=== PATIENT | female | born 2000 | race Caucasian/White ===

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

== ENCOUNTER → 2022-01-20 | Outpatient (CLI) | payer MEDICAID, SELFPAY | END | disposition home or self-care (01) | LOC: LABSPEC 10:07 | PROVIDERS: Visit Provider Obstetrics & Gynecology | DX: Z36.85 Encounter for antenatal screening for Streptococcus B (principal) | CPT/HCPCS: 87081 ==

== ENCOUNTER 2022-02-01 10:55 | Outpatient (CLI) | payer MEDICAID, SELFPAY ==
[2022-02-01 11:05] VITALS: BP 122/60; PULSE 88; TEMP 36.1
--- NOTE | 2022-02-01 15:33 | OB.TRI.NOTE ---
HPI - General HPI Narrative ELDER ANN, is a 21 F who presents for NST PFSH PFS Home Medications [id number] 1 mg tablet tab PO 02/01/22 [History Last Taken Unknown] Allergy/AdvReac Type Severity Reaction Status Date / Time No Known Allergies Allergy Verified 02/01/22 11:34 NST FHR Rate Baby A Baseline: 130 Variability:: Moderate Accelerations:: 15 x 15 Decelerations:: None NST Reactive:: Yes Uterine Activity:: Quiet Assessment & Plan (1) : PLAN: Patient arrives for NST. Reactive. Reassuring. Okay to discharge home and follow-up at scheduled appointments
== END 2022-02-01 11:40 | disposition home or self-care (01) ==
LOC: WPOUT 11:00 → WP 11:00
PROVIDERS: Referring Provider Obstetrics & Gynecology; Visit Provider Obstetrics & Gynecology
DX: Z34.90 Encounter for supervision of normal pregnancy, unspecified, unspecified trimester (principal); Z3A.00 Weeks of gestation of pregnancy not specified
CPT/HCPCS: 59025

== ENCOUNTER 2022-02-07 06:55 | Inpatient (IN) | payer MEDICAID, SELFPAY ==
[2022-02-07] VITALS (16 sets, daily range): BP systolic 104–130; BP diastolic 57–74; PULSE 78–111; TEMP 36.1–36.6; O2SAT 94–99; BMI 30.4
--- NOTE | 2022-02-07 07:14 | PCM.HP.BLA ---
History and Physical Date of Admission: 02/07/22 Chief complaint: Induction of labor at term History present illness: 21-year-old G1, P0 at 39 weeks and 1 day with SALMA 02/13/2022 arrives for induction of labor at term. Denies headache, visual changes, chest pain, shortness of breath, nausea vomit, right upper quadrant pain. Patient states good movement. Obstetrical history: G1: Current Past medical history: None Medications: None Past surgical history: None Allergies: No known drug allergies Family history: Denies history DVT or PE Social history: Denies smoking, alcohol use, drug use Review of systems: Besides above pertinent positives a full review of systems was performed and found to be negative Physical exam: Vitals: Pending General: Normal-appearing no acute distress none HEENT: Normocephalic atraumatic no cervical of adenopathy Cardiac/respiratory: No use of accessory muscles, nonlabored breathing Abdomen: Soft, nontender, gravid Extremities: No peripheral edema normal peripheral pulses Psych: Normal affect normal demeanor nonpressured speech Labs: Pending Assessment plan: 21-year-old G1, P0 at 39 weeks and 1 day for induction of labor at term Admit labor and delivery CEFM Cytotec induction GBS negative Routine orders Anesthesia to see
[2022-02-07 08:05] LABS: Absolute Lymphocyte Count 1.92 X10^3/uL (0.83-4.51); Absolute Neutrophil Count 5.6 X10^3/uL (2.0-7.7); Basophil# 0.03 X10^3/uL; Basophil% 0.3 % (0-1); Eosinophils% 2.3 % (0-5); Hematocrit 34.4 % (37-47); Hemoglobin 10.9 g/dL (12.0-15.0); Lymphocyte # 1.92 X10^3/ul (0.83-4.51); Mean Corp Hgb Conc 31.7 g/dL (32-36); Mean Corpuscular Hgb 27.4 pg (27.0-32.0); Mean Corpuscular Volume 86.4 fL (81-99); Mean Platelet Vol. 11.4 fl (6.2-12.0); Monocyte# 0.89 X10^3/uL; Monocyte% 10.2 % (0-10); NRBC Flagged by Analyzer 0 % (0-5); Neutrophil % 64.4 % (47-70); Platelet Count 234 K/mm3 (150-450); RBC Distribution Width CV 13.2 % (11.6-14.6); RBC Distribution Width SD 41.3 fl (35.1-43.9); Red Blood Count 3.98 M/mm3 (4.2-5.4); White Blood Count 8.7 K/mm3 (4.4-11.0)
[2022-02-07] MEDS: miSOPROStol 25 MCG TABLET VAGINAL ×3 (08:36→16:25)
[2022-02-07] MEDS: Lactated Ringers 1,000 ML 50 ML IV (20:21)
[2022-02-07] MEDS: LACTATED RINGERS 500 ML 999 ML IV ×3 (20:21→23:41)
--- NOTE | 2022-02-07 21:44 | PCM.PN.OB ---
Subjective Subjective Pt starting to feel contractions. Objective Data Objective Data Vital Signs: Vital Signs Temp Pulse BP Pulse Ox 97.7 F L 90 130/66 H 94 02/07/22 19:17 02/07/22 21:36 02/07/22 21:36 02/07/22 21:21 Weight: 83.007 kg Body Mass Index (BMI) 30.4 Intake & Output: Intake and Output for Last 24 Hours 02/05/22 02/06/22 02/07/22 23:59 23:59 23:59 Intake Total 500 / 500 Output Total 100 / 100 Balance 400 / 400 Lab / Micro Data Attestation: I reviewed the patient's lab results. Result Diagrams: 02/07/22 07:50 Labs: Laboratory Results - last 24 hr 02/07/22 07:50: WBC 8.7, RBC 3.98 L, Hgb 10.9 L, Hct 34.4 L, MCV 86.4, MCH 27.4, MCHC 31.7 L, RDW Std Deviation 41.3, RDW Coeff of Rebecca 13.2, Plt Count 234, MPV 11.4, Immature Gran % (Auto) 0.800, Neut % (Auto) 64.4, Lymph % (Auto) 22.0, Citrus % (Auto) 10.2 H, Eos % (Auto) 2.3, Baso % (Auto) 0.3, Absolute Neuts (auto) 5.6, Absolute Lymphs (auto) 1.92, Nucleated RBC % 0 02/07/22 07:50: Blood Type A POSITIVE, Antibody Screen NEGATIVE Physical Exam Const alert, oriented x3 and no apparent distress Resp normal respiratory effort and no retractions Cardio regular rate GI soft to palpation, non-tender and non-distended Inspection: gravid Narrative: /-3, AROM clear fluid. FSE placed and then removed as it was malfunctioning. Extremity normal to inspection Assessment & Plan (1) Elective induction of labor planned: PLAN: Responded to heart rate deceleration to marva of 40s for three minutes. Recovered with positional changes, IVF bolus. FHR 125s, mod rebecca/no accel/+broken variable decel. FSE placed with cervical exam and AROM. FSE malfunctioning, able to trace externally. Therefore FSE was removed and external monitors replaced. Deceleration likely secondary to uterine tachysystole. Lyerly now q1. Pt did have snack prior to deceleration, instruction no further. Will monitor for 1-2 hours and will start pitocin at that time based on FHR monitoring. Discussed deceleration and plan of care with patient and family at bedside. All questions answered.
[2022-02-07] MEDS: Oxytocin 30 units/NS 500 ml 30 UNITS/500 ML IV.SOLN IV (23:27)
[2022-02-08] VITALS (65 sets, daily range): BP systolic 84–151; BP diastolic 42–79; PULSE 71–187; RESP 16–18; TEMP 36.1–36.8; O2SAT 92–100
[2022-02-08] MEDS: fentaNYL-bupivacaine (epidural) 100 ML BAG EPIDURAL ×4 (00:25→13:45)
[2022-02-08] MEDS: LACTATED RINGERS 500 ML 999 ML IV ×3 (01:50→10:31)
[2022-02-08] MEDS: Terbutaline 1 MG/ML Vial 0.25 MG SC (04:01)
[2022-02-08] MEDS: Lactated Ringers 1,000 ML 200 ML IV ×2 (04:03→09:19)
--- NOTE | 2022-02-08 08:08 | PCM.PN.OB ---
Subjective Subjective Patient comfortable in bed, sleeping. Objective Data Objective Data Vital Signs: Vital Signs Temp Pulse BP Pulse Ox 97.7 F L 111 H 98/50 L 98 02/08/22 01:50 02/08/22 07:27 02/08/22 07:27 02/08/22 07:27 Weight: 83.007 kg Body Mass Index (BMI) 30.4 Intake & Output: Intake and Output for Last 24 Hours 02/06/22 02/07/22 02/08/22 23:59 23:59 23:59 Intake Total 1057.5 / 1057.5 2448.23 / 2448.23 Output Total 700 / 700 1100 / 1100 Balance 357.5 / 357.5 1348.23 / 1348.23 Lab / Micro Data Result Diagrams: 02/07/22 07:50 Labs: Laboratory Results - last 24 hr 02/07/22 07:50: Blood Type A POSITIVE, Antibody Screen NEGATIVE Physical Exam Const alert, oriented x3 and no apparent distress Resp normal respiratory effort Cardio regular rate GI soft to palpation and non-tender Inspection: gravid Narrative: 5/70/-1 Extremity no pedal edema NST FHR Rate Baby A Baseline: 145 Variability:: Moderate Accelerations:: 15 x 15 Decelerations:: Variable (occasional) Uterine Activity:: q1-5 min Assessment & Plan (1) Elective induction of labor planned: PLAN: 39/2 weeks continued elective induction at term. Patient was started on Pitocin late last night. Developed uterine tachysystole with coupling of contractions. Pitocin was stopped. Around 430 this morning patient was given terbutaline in an effort to relax uterus and to be able to restart induction of labor. Patient continued to contract on her own. Pitocin still off at this time.Patient has had made cervical change. Now 5 cm. We will plan to monitor contraction pattern air over the next 30 to 60 minutes. If able we will then start Pitocin at 1 milliunit and augment by 1mU. Discussed plan of care with patient and also with family at bedside. Discussed possibilities of labor progress. If patient continues to contract and make cervical change without Pitocin, will proceed. Discussed possibilities of section if fetus does not tolerate contractions or labor, if cervix stops making change, if no cervical change and unable to utilize Pitocin to assist in making cervical change. All questions answered.
[2022-02-08] MEDS: Oxytocin 30 units/NS 500 ml 30 UNITS/500 ML IV.SOLN 334 UNITS IV (15:28)
--- NOTE | 2022-02-08 15:45 | EX.PCM.OBRPT ---
Vaginal Delivery Operative Information Date of Procedure: 02/08/22 Pre-Operative Diagnosis: Narvaez intrauterine Post-Operative Diagnosis: Narvaez intrauterine Surgery / Procedure Performed: Spontaneous Vaginal Delivery Type of Anesthesia: Epidural Estimated Blood Loss: 350cc Findings Description of Procedure: Spontaneous vaginal delivery of viable infant female. No nuchal cord. Baby to mom. Cord clamped and cut. Spontaneous delivery of placenta. First-degree laceration repaired in usual fashion, hemostatic. A Gender: Female (1 minute): 9 (5 minute): 10
[2022-02-08] MEDS: Ibuprofen 600 MG Tablet PO (17:26)
[2022-02-08] MEDS: Acetaminophen 500 MG Tablet 1000 MG PO (23:17)
[2022-02-09] VITALS (10 sets, daily range): BP systolic 99–120; BP diastolic 51–65; PULSE 88–99; RESP 14–20; TEMP 36.1–36.6
--- NOTE | 2022-02-09 07:44 | PCM.PN.OB ---
Subjective Subjective No overnight complaints Objective Data Objective Data Vital Signs: Vital Signs Temp Pulse Resp BP Pulse Ox O2 Del Method 97.2 F L 99 14 113/60 99 Room Air 02/09/22 03:19 02/09/22 03:19 02/09/22 03:19 02/09/22 03:19 02/08/22 20:08 02/09/22 03:19 Oxygen Delivery Method Room Air Weight: 183 lb Body Mass Index (BMI) 30.4 Intake & Output: Intake and Output for Last 24 Hours 02/07/22 02/08/22 02/09/22 23:59 23:59 23:59 Intake Total 1057.5 / 1057.5 5700.88 / 5700.88 Output Total 700 / 700 4300 / 4300 Balance 357.5 / 357.5 1400.88 / 1400.88 Lab / Micro Data Result Diagrams: 02/07/22 07:50 Physical Exam Const alert, oriented x3, no apparent distress, average body habitus, healthy appearing and well nourished HEENT normocephalic and moist oral mucous membranes Eyes PERRL Resp normal respiratory effort, no retractions and no use of accessory muscles GI GI Narrative: Soft, nontender uterus firm and below umbilicus Extremity normal to inspection, full ROM and no clubbing, cyanosis or edema Neuro moves all extremities and no focal motor deficits Psych mental status grossly normal, affect normal and speech normal Assessment & Plan (1) Vaginal delivery: PLAN: day 1. Breast-feeding. Pain well controlled. Likely home tomorrow
[2022-02-09] MEDS: Ibuprofen 600 MG Tablet PO ×2 (07:47→15:00)
[2022-02-09] MEDS: Senna/Docusate Sodium 1 Tablet PO (07:48)
[2022-02-09] MEDS: Acetaminophen 500 MG Tablet 1000 MG PO ×2 (10:40→20:11)
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
[2022-02-10 01:46] VITALS: BP 115/63; PULSE 82; RESP 17; TEMP 36.4
[2022-02-10] MEDS: Ibuprofen 600 MG Tablet PO (07:29)
--- NOTE | 2022-02-10 07:30 | PCM.DC.BLA ---
Discharge Summary Date of Admission: 02/07/22 Date of Discharge: 02/10/22 Summary: Patient arrived on 02/07 for induction of labor at term. Subsequently delivered in 02/08/2022. Routine recovery. Discharge home on 02/10/2022 Meaningful Use Info Meaningful Use Diagnoses (Choose all that apply): None applicable Discharge Plan Admission Admit Date/Time: 02/07/22 06:55 Primary Reason for Your Visit: Induction of labor Attending Provider: Shalini Rangel Instructions Additional Instructions / Restrictions: Regular diet. Routine activity. Weightbearing as tolerated. No records for 4 to 6 weeks. Okay to shower. Call if fevers, chills, chest pain, shortness of breath. Follow-up 4 to 6 weeks Discharge Orders/Prescriptions Prescriptions: No Action 1 mg Tablet PO quetiapine 100 mg tablet 50 mg Label Comments: TAKE 1 TABLET BY MOUTH EVERY DAY AT BEDTIME Disposition Disposition (needs filled in before D/C Order can be placed): Home, Self Care
--- NOTE | 2022-02-10 07:31 | PCM.PN.OB ---
Subjective Subjective No overnight complaints Objective Data Objective Data Vital Signs: Vital Signs Temp Pulse Resp BP Pulse Ox O2 Del Method 97.5 F L 82 17 115/63 99 Room Air 02/10/22 01:46 02/10/22 01:46 02/10/22 01:46 02/10/22 01:46 02/08/22 20:08 02/10/22 01:46 Oxygen Delivery Method Room Air Weight: 183 lb Body Mass Index (BMI) 30.4 Intake & Output: Intake and Output for Last 24 Hours 02/08/22 02/09/22 02/10/22 23:59 23:59 23:59 Intake Total 5700.88 / 5700.88 Output Total 4300 / 4300 Balance 1400.88 / 1400.88 Lab / Micro Data Result Diagrams: 02/07/22 07:50 Physical Exam Const alert, oriented x3, no apparent distress, average body habitus, healthy appearing and well nourished HEENT normocephalic and moist oral mucous membranes Eyes PERRL Neck full ROM Resp normal respiratory effort, no retractions and no use of accessory muscles Extremity normal to inspection, full ROM and no clubbing, cyanosis or edema Neuro moves all extremities and no focal motor deficits Psych mental status grossly normal, affect normal, speech normal and activity/motor behavior normal Assessment & Plan (1) Vaginal delivery: PLAN: day 2. Breast-feeding. Okay to discharge home today
[2022-02-10 07:57] VITALS: BP 109/62; PULSE 80
[2022-02-10 08:00] VITALS: BP 109/62; PULSE 75; RESP 14; TEMP 36.1; O2SAT 99
--- NOTE | 2022-02-10 10:48 | CASEMGMT ---
Social Work Labor and Delivery Unit 02/10/2022 Intervention occurring between [id number] Summary: As per verbal discussion with the mother of baby (MOB) and the father of baby (FOB) this selling underwriter worked on securing mental health intakes at the counseling center for both. MOB has follow-up on 02/13/2022 at noon with an arrival at 11:30 AM, with therapist Mitali Melendrez. FOB has an appointment on 03/21/2022 at 1 PM with an arrival at 12:30 PM, with therapist Julisa Alarcon. Met with the MOB in room. Also in room were MOB's mother Aby and MOB's grandmother Noemi. Aby and Noemi left to get car seat and to allow this selling underwriter private time with the MOB. Reviewed mental health follow-up for both the MOB and the FOB, as the FOB was at work. MOB took a picture of the FOB's appointment and sent to the FOB straightaway. MOB voiced intent to follow-up, and expressed happiness at having such a close appointment. This selling underwriter explored MOB's intention about maintaining on the Seroquel. MOB reports concerns about sleepiness and reports preference at this point to be on Prozac. MOB reports she does have a refill of the Prozac as prescribed by her provider in [place]. This selling underwriter explored whether there was any type of indication of briseyda when on the Prozac, and MOB denied such. This selling underwriter explored whether MOB has any history of psychosis, and MOB reported belief that has been delusional in the past, though denies any concerns at this time. This selling underwriter has not observed any evidence of delusional thought process or psychosis during this hospital stay. MOB has been logical, with intact thought process both yesterday and today. MOB does express understanding of risk for mood complications including psychosis, and reports would talk with her mother should concerns start to arise. This selling underwriter provided packet on mood and anxiety disorders as well as a packet on [facility] resources. Handouts on shaken baby prevention and safe sleeping. MOB voiced it is okay to talk freely with Gerald should they return. This selling underwriter left room to get additional resources for the MOB. This selling underwriter ran into Gerald who were coming back to the room with a car seat. Aby shared with this selling underwriter plan to stay in [place] for a couple of weeks, and can extend stay longer should this be needed. Aby confirms that VINOD has a refill of 20 mg of Prozac at a pharmacy in [place], though can have the prescription transferred to a pharmacy in [place]. This selling underwriter explored whether the psychiatric provider can do telehealth and continue to follow MOB until MOB can see a local provider at the counseling center. Aby reports this would be a possibility and can help MOB call to make a telehealth appointment. This selling underwriter suggested that family talk with the counseling center on 02/13/2022 as to how long it will be before psych services can start, and then arrange telehealth based off of that timeframe. Aby voiced understanding and agreement with this plan to assist the MOB. Note during conversation with Aby, Aby indicated the MOB does have a history of some PTSD. Also as a minor did have some residential treatment for about 6 months in the last psychiatric hospitalization for the MOB was around [address] [facility]. It was after that hospitalization in 2019 that VINOD was reportedly prescribed 300 mg of Seroquel. Aby reports the MOB has experienced briseyda in the past, and denies (consistent with MOB's reports) that VINOD ever experienced briseyda from the Prozac. Aby shared a personal history of psychosis after 2 of Aby's deliveries, with one of the psychosis episodes surfacing until around 6 to 7 months . Emotional support offered to Aby. This selling underwriter back to room, and reviewed the option of telehealth until getting into a psychiatric provider in [place]. MOB in agreement. This selling underwriter provided some additional baby clothing, and a brochure on [facility]'s behavioral health program. Educated to the IOP program and availability of group, individual, and psychiatry while involved with the program. VINOD reports she has been in the IOP program before so understands how it works. No other questions identified by MOB or family. Help me grow referral submitted through the [facility] assisted care web-based referral system. Assessment: Observed MOB attentive to the baby this morning, appearing to hogan. VINOD appears receptive to getting supportive services in place, showing good insight into need for support. VINOD's family presents is supportive, and aware of the importance of support and emotional health in the timeframe. VINOD has identified her family is a good and healthy support. Plan: MOB and infant are discharging home with support from MOB's grandparents and MOB's mother. Father of baby also involved and will be around to help as able. MOB's mother has stated plan to stay in [place] for couple more weeks to assist with transition home. MOB has mental health follow-up arranged for 02/13/2022, and MOB's mother to assist with arranging psychiatric telehealth for the interim between the intake assessment and referral to psychiatric services at the counseling center. [facility] resource list, Mood and Anxiety Disorders, and Information on [facility] Behavioral Health Program provided. Help me grow referral has been made into follow-up with the family as well. VINOD has stated that if she starts feeling any emotional distress would first talk with her mother. -CHERI Weinberg, PRIVATE CLIENT ADVISOR. *This note was generated with [employer] dictation software. It may contain incorrect words, spelling, and punctuation that were not noted in review of the chart prior to signing*
== END 2022-02-10 11:15 | disposition home or self-care (01) | DRG 560 ==
PROVIDERS: Admitting Provider Student in an Organized Health Care Education/Training Program; Visit Provider Student in an Organized Health Care Education/Training Program
DX: O70.0 First degree perineal laceration during delivery (principal); Z37.0 Single live birth; O76 Abnormality in fetal heart rate and rhythm complicating labor and delivery; Z3A.39 39 weeks gestation of pregnancy
CPT/HCPCS: 59025; 59050; 85025; 86850; 86900; 86901; 99218; J7120; G0378

== ENCOUNTER → 2022-05-05 | Outpatient (CLI) | payer MEDICAID, SELFPAY ==
[2022-05-05 18:57] LABS: Rheumatoid Factor < 10.0 IU/mL (<15)
[2022-05-12 14:29] LABS: ANTINUCLEAR ANTIBODIES DIRECT Negative (Negative)
== END | disposition home or self-care (01) ==
LOC: MFPLAB 16:49
PROVIDERS: PCP Family Medicine; Referring Provider Family Medicine; Visit Provider Family Medicine
DX: Z82.61 Family history of arthritis (principal)
CPT/HCPCS: 36415; 86038; 86431

== ENCOUNTER → 2023-02-15 | Outpatient (CLI) | payer MEDICAID, SELFPAY ==
[2023-02-15 17:41] LABS: hCG Titer Quant., Serum < 1 mIU/mL (1-3)
== END | disposition home or self-care (01) ==
LOC: WOBLAB 16:09
PROVIDERS: PCP Family Medicine; Visit Provider Obstetrics & Gynecology
DX: N91.2 Amenorrhea, unspecified (principal)
CPT/HCPCS: 36415; 84702

== ENCOUNTER 2023-06-18 10:29 | Emergency (ER) | payer MEDICAID, SELFPAY ==
[2023-06-18 10:30] VITALS: BP 118/76; PULSE 92; RESP 14; TEMP 36.8; O2SAT 98; BMI 25.4
--- NOTE | 2023-06-18 10:38 | ED.VIS.GI ---
HPI HPI - GI History of Present Illness Chief Complaint: Abd Pain Detail of Chief Complaint: Nausea, vomiting and diarrhea. Informant: patient Abdominal Pain/Flank Pain Onset: Today and Yesterday Context: Gradual Onset Timing: Intermittent Quality: Cramping Current Severity: Gone Maximum Severity: Mild Worsened by: Nothing Relieved by: Nothing Nausea/Vomiting/Emesis GI Symptom: Positive for Nausea and Vomiting Onset: Today and Yesterday Severity: Mild Diarrhea/Melena/Hematochezia GI Symptom: Positive for Diarrhea Onset: Today Stool Quality: Positive for Loose Severity: Mild Associated Symptoms Associated Symptoms: Negative for Dysuria, Frequency, Hematuria or Urgency Narrative Narrative: Healthy 23-year-old female no significant past medical history or surgery. States that her grandmother had nausea vomiting and diarrhea and now she has had the last 1 to 2 days. Low-grade fever 100. Really noticed new abdominal pain some mild cramping. No dysuria. Prior similar symptoms: Yes Recent Illness/Hospitalization: No PFSH PFSH Medical History Anxiety COVID Depression Home Medications [id number] 1 mg tablet tab PO 02/01/22 [History Last Taken Unknown] quetiapine 100 mg tablet 50 mg Depression 02/07/22 [History Last Taken Unknown] ondansetron 4 mg disintegrating tablet 4 mg PO Q4H PRN Nausea #7 tabs 06/18/23 [Rx Last Taken Unknown] Allergy/AdvReac Type Severity Reaction Status Date / Time No Known Allergies Allergy Verified 06/18/23 10:30 Surgical History History of surgery Social History Smoking Status: Former smoker ROS ROS ED ROS Narrative Nausea, vomiting and diarrhea. Low-grade fever of 100. Review of Systems ROS Unobtainable: Denies due to encephalopathy Constitutional Constitutional ED: Reports fever(s); Denies chills ENT ENT ED: Denies ear pain, rhinorrhea or sore throat Cardiovascular Cardiovascular: Denies chest pain Respiratory/Chest Respiratory/Chest: Denies cough or dyspnea Gastrointestinal Gastrointestinal: Reports diarrhea, nausea and vomiting; Denies abdominal pain, constipation or melena Genitourinary Genitourinary ED: Denies dysuria or hematuria Musculoskeletal Musculoskeletal: Denies arthralgias Integumentary Denies abscess or Abrasions Neurologic Neurologic: Denies headache(s) Psychiatric Psychiatric: Denies anxiety or depression Endocrine Endocrinology: Denies polydipsia Hematologic/Lymphatic Hematologic/Lymphatic: Denies easy bleeding or easy bruising Allergic/Immunologic Allergic/Immunologic ED: Denies mouth swelling, tongue swelling or urticaria EXAM Physical Exam Narrative Exam Narrative: 23-year-old female no acute distress. Vital signs stable afebrile. HEENT exam unremarkable. Moist mucous membranes. Neck nontender. No lymphadenopathy. Lungs clear to auscultation bilaterally. Heart regular rhythm rate about 90 no murmur. Chest wall nontender. Abdomen soft nontender. Normal bowel sounds no peritoneal signs. No distention. No localizing right upper or right lower quadrant tenderness. Moving all 4 extremities. Nontender no edema. Back nontender. Neurologically she is awake and alert with no focal motor deficits. Very benign exam. Const Vital Signs: 06/18/23 10:30 Temperature 98.2 F Temperature Source Temporal Pulse Rate 92 Respiratory Rate 14 Blood Pressure 118/76 Blood Pressure Mean 90 Pulse Ox 98 Oxygen Delivery Method Room Air Positive well nourished and well developed; Negative for obese, cachectic, contractures or unkempt General Appearance ED: well developed and NAD; Negative for unkempt, cachectic, contractures or pallor Nutritional Appearance: Negative for cachectic or obese HEENT Reports moist mucous membranes normocephalic and atraumatic; Negative for trauma or tenderness Eyes PERRL and EOMs intact bilaterally General Eye ED: Negative for pale conjunctiva, scleral icterus or other Neck no lymphadenopathy, supple and no JVD General: Negative for tenderness Carotids: Negative for other Lymph Lymphatic: Negative for other Resp normal respiratory effort and clear to auscultation bilaterally Effort and Inspection: Negative for respiratory distress Auscultation: Negative for rales, rhonchi or wheezes Cardio regular rate, regular rhythm, S1 normal heart sound, S2 normal heart sound and no murmurs Rate: Negative for bradycardia or tachycardic Rhythm: Negative for abnormal rhythm GI non-tender, non-distended and no masses Inspection: Negative for abdominal distention Auscultation: normoactive bowel sounds Palpation: soft; Negative for tender, guarding or rigid Back/Spine no CVA tenderness General Back: Negative for CVA tenderness Cervical Spine: Negative for cervical spine tenderness Thoracic Spine / Upper Back: Negative for thoracic spinal tenderness Lumbar Spine / Lower Back: Negative for lumbar spinal tenderness Coccyx: Negative for other Extremity full ROM General Extremety ED: Negative for edema or tenderness General Extremity: Negative for edema Neuro CN's II-XII intact bilaterally and moves all extremities Sensorium / Orientation: alert, oriented to person, oriented to place and oriented to time; Negative for orientation impaired, confused, lethargic or stuporous Motor Exam: strength 5/5 throughout Psych mental status grossly normal and thought process normal Appearance: Negative for unkempt Attitude: No agitated Mood & Affect: Negative for depressed, anxious or tearful Skin no wounds General Skin Exam: Negative for jaundice or pallor Lesions: no lesions Rashes: no rashes Trauma: Negative for abrasion Nails: Negative for discolored MDM MDM MDM Narrative Medical decision making narrative: 23-year-old female clinically has a viral gastroenteritis. Abdomen is benign. I do not think she needs any labs. She was offered IV fluids and IV Zofran she deferred and said she is doing okay at this time. She will be treated with p.o. Zofran and ODT prescription. Fluids and rest. Off work today and tomorrow. History & Record Review Discussion w/independent historian: Patient Additional record(s) reviewed:: Prior inpatient record, Prior outpatient record and Prior ED visit Discharge Plan Triage Chief Complaint: Abd Pain ED Provider: Curtis Gustafson Dx/Rx/DC Orders Clinical Impression: Viral gastroenteritis Instructions: ED Gastroenteritis, Viral (Adult) Prescriptions: New ondansetron 4 mg tablet,disintegrating 4 mg PO Q4H PRN (Reason: Nausea) Qty: 7 0RF No Action 1 mg Tablet PO quetiapine 100 mg tablet 50 mg Patient Comments: TAKE 1 TABLET BY MOUTH EVERY DAY AT BEDTIME Primary Care Provider: Neema Calixto Referrals: David Ann MD [Med Staff - Active Staff] - 3-5 Days if not improving Activity Restrictions/Additional Instructions: Zofran as needed for nausea. Plenty of fluids and rest. Increase your diet slowly. Follow-up with your doctor if not improving. Disposition Disposition: Home, Self Care
== END 2023-06-18 10:54 | disposition home or self-care (01) ==
PROVIDERS: Emergency Provider Emergency Medicine; PCP Family Medicine; Visit Provider Emergency Medicine
DX: A08.4 Viral intestinal infection, unspecified (principal); F41.9 Anxiety disorder, unspecified; F32.A Depression, unspecified; Z79.899 Other long term (current) drug therapy; Z87.891 Personal history of nicotine dependence
CPT/HCPCS: 99282

== ENCOUNTER 2023-08-11 16:21 | Emergency (ER) | payer SELFPAY ==
[2023-08-11 16:22] VITALS: BP 116/60; PULSE 75; RESP 14; TEMP 36.3; O2SAT 100; BMI 26.9
--- OUTSIDE RECORDS SUMMARY | 2023-08-11 16:54 | XMS RPT_ITS | CCD ---
Author Name Unknown Address [address] [place] [address] Organization [facility] Care Team Providers Care Clinical Rehabilitation Liaison Name Role Phone Unavailable Primary Care Provider Unavailabl e Results Test Name Value Interpretation Reference Range Facil ity Encounters Encounter Date Encounter Type Care Provider Facility Start: 07-10-2021 End: 07-10-2021 Subsequent hospital visit by physician Anup CHRISTIANSON Procedures Date Procedure Procedure Detail Performing Clinician Start: 07-10-2021 Antibody screen Social History Date Type Detail Facility Tobacco smoking stat [facility] Tobacco smoking consumption unknown [facility] Start: 2002 Sex Assigned At Not on file [facility] Summary Purpose Family History No Family History Records FoundNo Family History Records Found Advance Directives No Advanced Directives Records FoundNo Advanced Directives Records Found Additional Source Comments Source Comments (unrecognize d section and content) In the event this informatio n is protected by the Federal Confidentiality of Alcohol and Drug Abuse Patient Records regulations: The Federal rules restrict any use of the information to criminally investigate or prosecute any alcohol or drug abuse patient.[facility] INFORMATION SOURCE (unrecogn ized section and content) DATE CREATED AUTHOR ROBERTA YEN 12/01/2021 [facility] FOR RECORDS PERTAINING TO PATIENTS WHO ARE OR HAVE BEEN ENROLLED IN A CHEMICAL DEPENDENCY/SUBSTANCEABUSE PROGRAM, SOME INFORMATION MAY BE OMITTED. This clinical summary was aggregated from multiple sources. Caution should be exercised in using it in the provision of clinical care. This summary normalizes information from multiple sources, and as a consequence, information in this document may materially change the coding, format and clinical context of patient data. In addition, data may be omitted in some cases. CLINICAL DECISIONS SHOULD BE BASED ON THE PRIMARY CLINICAL RECORDS. [facility] [employer] [facility]. provides no warranty or guarantee of the accuracy or completeness of information in this document.
--- NOTE | 2023-08-11 17:50 | EX.ED.VIS.EY ---
HPI History of Present Illness Chief Complaint: Eye Problem Informant: patient Narrative Narrative: The patient's child accidentally scratched her right eye. This happened about 4 5 hours ago. She states vision is a little bit blurry but mostly it tears and feels as though something is still in the eye. PFSH PFSH Medical History Anxiety COVID Depression Home Medications [id number]-vij-[id number]-FA 1 mg tablet tab PO 02/01/22 [History Last Taken Unknown] quetiapine 100 mg tablet 50 mg Depression 02/07/22 [History Last Taken Unknown] ondansetron 4 mg disintegrating tablet 4 mg PO Q4H PRN Nausea #7 tabs 06/18/23 [Rx Last Taken Unknown] Allergy/AdvReac Type Severity Reaction Status Date / Time No Known Allergies Allergy Verified 08/11/23 16:22 Surgical History History of surgery Social History Smoking Status: Current every day smoker tobacco type: e-cigarettes EXAM Physical Exam Const Vital Signs: 08/11/23 16:22 Temperature 97.3 F L Temperature Source Temporal Pulse Rate 75 Respiratory Rate 14 Blood Pressure 116/60 Blood Pressure Mean 78 Pulse Ox 100 Oxygen Delivery Method Room Air MDM MDM MDM Narrative Medical decision making narrative: Slit lamp exam shows corneal abrasion across center of the cornea. This was evaluated also with fluorescein. Master sign is negative. This does not appear to be deep. Appears to be abrasion and not a laceration. I think she should heal well. We discussed being sun sensitive. I will write for some antibiotic ointment. We will give her ophthalmology follow-up if it is not improving in 1 to 2 days. Discharge Plan Triage Chief Complaint: Eye Problem ED Provider: Landon James Dx/Rx/DC Orders Clinical Impression: Abrasion of cornea, right Instructions: ED Corneal Abrasion Prescriptions: No Action 1 mg Tablet PO quetiapine 100 mg tablet 50 mg Patient Comments: TAKE 1 TABLET BY MOUTH EVERY DAY AT BEDTIME ondansetron 4 mg tablet,disintegrating 4 mg PO Q4H PRN (Reason: Nausea) Qty: 7 0RF Primary Care Provider: Neema Calixto Referrals: Neema Calixto, [Primary Care Provider] - Luis A Lux MD [Med Staff - Active Staff] - 1-2 Days if not improving Disposition Disposition: Home, Self Care
[2023-08-11] MEDS: Erythromycin Base 1 OPTH.TUBE 1 APPLIC RIGHT EYE (18:57)
[2023-08-11] MEDS: Tetracaine 0.5% Ophthalmic Bottle 1 DRP OPHTHALMIC (18:58)
== END 2023-08-11 19:00 | disposition home or self-care (01) ==
PROVIDERS: Emergency Provider Emergency Medicine; PCP Family Medicine; Visit Provider Emergency Medicine
DX: S05.01XA Injury of conjunctiva and corneal abrasion without foreign body, right eye, initial encounter (principal); X58.XXXA Exposure to other specified factors, initial encounter; F17.290 Nicotine dependence, other tobacco product, uncomplicated
CPT/HCPCS: 99283

== ENCOUNTER 2024-04-26 20:28 | Emergency (ER) | payer MEDICAID, SELFPAY ==
[2024-04-26 20:28] VITALS: BP 123/66; PULSE 111; RESP 18; TEMP 36.7; O2SAT 97; BMI 32.3
--- OUTSIDE RECORDS SUMMARY | 2024-04-26 20:49 | XMS RPT_ITS | CCD ---
Author Organization [facility] Care Team Providers Care Floor Cashier Name Role Phone Unavailable Primary Care Provider Unavailabl e PHYSICIAN, NOT RECORDED Primary Care Physician U navailable PHYSICIAN, NOT RECORDED Primary Care UnavailJUAN Guerrero Attending Unavailable JUAN RODRIGUEZ Attending Unavailable PHYSICIAN, NOT RECORDED Primary Care UnavailJUAN Guerrero Attending Unavailable PHYSICIAN, NOT RECORDED Primary Care Unavaila sherlyn Unavailable Primary Care Provider UnavailIVANIA Adams Attending Unavailable RIRI EATON Referring Unavailable KATHRIN VELASQUEZ Primary Care Unavailable IVANIA ESQUIVEL Referring Unavailable DAVID EDWARDS Attending Unavailable Kathrin Velasquez MD Primary Care Provider PHYSICIAN, NOT RECORDED Primary Care UnavailJUAN Guerrero MD Attending Unavailable PACO MANCILLA MD Attending Unavailable PHYSICIAN, NOT RECORDED Primary Care Unavailsarahy MANCILLA MD, PACO Admitting Unavailable PACO MANCILLA MD Attending Unavailable PHYSICIAN, NOT RECORDED Primary Care Unavailsarahy plata PHYSICIAN, NOT RECORDED Primary Care UnavailJUAN Guerrero MD Attending Unavailable Medications Current Medications Medication Drug Class(es) Dates Sig (Normalized) Sig (Original) aspirin 81 mg delayed release oral tablet (4 sources) Platelet Aggregation Inhibitor, Nonsteroidal Anti-inflammatory Drug Start: 11-29-2023 take 1 tablet by mouth once daily aspirin, enteric coated (ECOTRIN LOW STRENGTH) 81 mg EC tablet Indications: Encounter for supervision of other normal in first trimester , 8 weeks gestation of Take 1 tablet by mouth once daily. 90 tablet 3 11/29/2023 Active metoclopramide 10 mg oral tablet (7 sources) Dopamine-2 Receptor Antagonist Start: 02-06-2024 Reglan 10 mg oral tablet Dose : 10 mg = 1 tab(s), Oral, q6hr, PRN Nausea, # 28 tab(s), 0 Refill(s), Pharmacy: [facility], 168.5, cm, 02/06/24 13:39:00 EDT, Height Start Date: 02/06/24 Status: Ordered AD oral tablet (5 sources) Start: 02-06-2024 take 1 tablet by mouth once daily AD oral tablet Dose = 1 tab(s), Oral, Daily, # 30 tab(s), 0 Refill(s) Start Date: 02/06/24 Status: Ordered vit,calc76/iron/folic (PNV 29-1 ORAL) (4 sources) vit,calc76/iron/f olic (PNV 29-1 ORAL) Take by mouth once daily. Active vit,mauro c76/iron/folic (PNV 29-1 ORAL) Take by mouth once daily. 0 Active SUMAtriptan 50 mg oral tablet (7 sources) Serotonin-1b and Serotonin-1d Receptor Agonist Start: 02-06-2024 Imitrex 50 mg oral tablet Dose : 50 mg = 1 tab(s), Oral, qDay, PRN as needed for migraine headache, 1 tab onset , may repeat in 2 hrs. MAX 4 tab(s)/24hrs, # 9 tab(s), 0 Refill(s), Pharmacy: [facility], 168.5, cm, 02/06/24 13:39:00 EDT, Height Start Date: 02/06/24 Status: Ordered Problems Active Problems Problem Classification Problem Date Documented Da te Episodic/Chronic Genitourinary symptoms and ill-defined conditions (2 sources) Unspecified abnormal findings in urine; Translations: [Unspecified abnormal findings in urine] Onset: 04-15-2024 Episodic Other lower respiratory disease (1 source) Cough; Translations: [Subacute cough] 04-20-2024 Episodic Other upper respiratory disease (1 source) Other specified disorders of nose and nasal sinuses; Translations: [Other disease of nasal cavity and sinuses] 04-20-2024 Episodic Other upper respiratory infections (1 source) Sore throat symptom; Translations: [Acute pharyngitis, unspecified] 04-20-2024 Episodic Residual codes; unclassified (1 source) Gestation period, 8 weeks; Translations: [8 weeks gestation of ] 11-29-2023 Episodic Residual codes; unclassified (1 source) Gestation period, 16 weeks; Translations: [16 weeks gestation of ] 01-21-2024 Episodic Residual codes; unclassified (2 sources) 18 weeks gestation of ; Translations: [18 weeks gestation of ] Onset: 02-06-2024 Episodic Residual codes; unclassified (2 sources) 28 weeks gestation of ; Translations: [28 weeks gestation of ] Onset: 04-15-2024 Episodic Past or Other Problems Problem Classification Problem Date Documented Da te Episodic/Chronic Other and delivery including normal (14 sources) Normal ; Translations: [Encounter for supervision of normal , unspecified, unspecified trimester] Onset: 09-28-2023 11-29-2023 Episodic Results Test Name Value Interpretation Reference Range Facil ity XR CHEST 2V FRONTAL/LATon XR CHEST 2V FRONTAL/LAT * * *Final Report* * * DATE OF EXAM: Apr 21 2024 10:58AM WOX [id number] - XR CHEST 2V FRONTAL/LAT / PROCEDURE REASON: Subacute cough * * * * Physician Interpretation * * * * EXAMINATION: CHEST RADIOGRAPH (2 VIEW FRONTAL and LATERAL) CLINICAL HISTORY: Subacute cough MQ: XC2_6 EXAM DATE/TIME: 04/21/2024 10:58 AM COMPARISON: No relevant prior studies available. RESULT: Lines, tubes, and devices: None. Lungs and pleura: No consolidation. No lung mass. No pleural effusion. No pneumothorax. Cardiomediastinal silhouette: Normal cardiomediastinal silhouette. Bones and soft tissues: Unremarkable. IMPRESSION: No acute radiographic abnormality. Straw Hat Brim Cutter Operator: DONG Transcribe Date/Time: Apr 21 2024 11:03A Dictated by : AMADO HERNANDEZ MD This examination was interpreted and the report reviewed and electronically signed by: AMADO HERNANDEZ MD on Apr 21 2024 11:08AM EST [id number] Normal [facility] XR Chest PA and Lateralon IMPRESSION: No acute radiographic abnormality. Straw Hat Brim Cutter Operator: DONG Transcribe Date/Time: Apr 21 2024 11:03A Dictated by : AMADO HERNANDEZ MD This examination was interpreted and the report reviewed and electronically signed by: AMADO HERNANDEZ MD on Apr 21 2024 11:08AM EST DIVISION OF RADIOLOGY * * *Final Report* * * DATE OF EXAM: Apr 21 2024 10:58AM WOX [id number] - XR CHEST 2V FRONTAL/LAT / PROCEDURE REASON: Subacute cough * * * * Physician Interpretation * * * * EXAMINATION: CHEST RADIOGRAPH (2 VIEW FRONTAL & LATERAL) CLINICAL HISTORY: Subacute cough MQ: XC2_6 EXAM DATE/TIME: 04/21/2024 10:58 AM COMPARISON: No relevant prior studies available. RESULT: Lines, tubes, and devices: None. Lungs and pleura: No consolidation. No lung mass. No pleural effusion. No pneumothorax. Cardiomediastinal silhouette: Normal cardiomediastinal silhouette. Bones and soft tissues: Unremarkable. DIVISION OF RADIOLOGY Provider, [facility] [place] - 04/21/2024 * * *Final Report* * * DATE OF EXAM: Apr 21 2024 10:58AM WOX [id number] - XR CHEST 2V FRONTAL/LAT / PROCEDURE REASON: Subacute cough * * * * Physician Interpretation * * * * EXAMINATION: CHEST RADIOGRAPH (2 VIEW FRONTAL & LATERAL) CLINICAL HISTORY: Subacute cough MQ: XC2_6 EXAM DATE/TIME: 04/21/2024 10:58 AM COMPARISON: No relevant prior studies available. RESULT: Lines, tubes, and devices: None. Lungs and pleura: No consolidation. No lung mass. No pleural effusion. No pneumothorax. Cardiomediastinal silhouette: Normal cardiomediastinal silhouette. Bones and soft tissues: Unremarkable. IMPRESSION IMPRESSION: No acute radiographic abnormality. Straw Hat Brim Cutter Operator: PSCB Transcribe Date/Time: Apr 21 2024 11:03A Dictated by : AMADO HERNANDEZ MD This examination was interpreted and the report reviewed and electronically signed by: AMADO HERNANDEZ MD on Apr 21 2024 11:08AM EST [facility] Radiology Study observation (narrative) [facility] XR Chest PA and LateralOrder ed By: Cc Provider on 04-21-2024 [facility] CNOVon 04-20-2024 CNOV Office Visit (UCWSTR) MITALI ANN ([id number]) 4 F Date Time Provider Department 04/20/24 1:30 PM RIRI EATON [facility] During your visit today, we recorded the following information about you: Temperature Pulse Respiration Blood pressure 98.2 degrees 92/minute 18/minute 111/71 Weight 87.6 kg Riri Eaton APRN.[employer]T CHANGER 04/20/2024 2:26 PM Signed Subjective HPI HPI Mitali Ann is a 24 year old female who presents today for CC of cough, sinus pressure. This started 2 weeks ago. Has tried otc medication for relief. Symptoms are worsened by nothing. Risk factors sick exposures at work. 29 weeks . nonsmoker. .Patient presents with: Cough: X2 weeks, R ear pain PAST MEDICAL HISTORY Diagnosis Date Generalized anxiety disorder PAST SURGICAL HISTORY Procedure Laterality Date MYRINGOTOMY ASPIRAND/EUSTACHIAN TUBE NFLTJ ALLERGIES Patient has no known allergies. MEDICATIONS vit,calc76/iron/foli c (PNV 29-1 ORAL) Take by mouth once daily. REGLAN 10 mg tablet 10 mg. (Patient not taking: Reported on 04/20/2024) IMITREX 50 mg tablet 50 mg. (Patient not taking: Reported on 04/20/2024) aspirin, enteric coated (ECOTRIN LOW STRENGTH) 81 mg EC tablet Take 1 tablet by mouth once daily. (Patient not taking: Reported on 04/20/2024) FAMILY HISTORY Problem Relation Age of Onset other (cavernous malformation) Mother other (epilepsy) Mother Primary Biliary Cirrhosis Father other (brain tumor) Sister Asthma Sister No Known Problems Sister No Known Problems Brother No Known Problems Brother No Known Problems Maternal Grandmother COPD Maternal Grandfather No Known Problems Paternal Grandmother No Known Problems Paternal Grandfather Social History Tobacco Use Smoking status: Never Passive exposure: Never Smokeless tobacco: Never Tobacco comments: Pt vapes but stopped at 5 weeks Vaping Use Vaping status: Former Substances: Nicotine Substance Use Topics Alcohol use: Never Drug use: Never Review of Systems Constitutional: Negative for fever. HENT: Positive for congestion, sinus pain and sore throat. Negative for ear pain and nosebleeds. Respiratory: Positive for cough. Negative for shortness of breath and wheezing. Musculoskeletal: Negative for neck pain. Skin: Negative for itching and rash. Neurological: Positive for headaches. Objective Blood pressure 111/71, pulse 92, temperature 36.8 ?C (98.2 ?F), resp. rate 18, weight 87.6 kg (193 lb 2 oz), last menstrual period 09/28/2023, SpO2 99%. Physical Exam Constitutional: General: She is not in acute distress. Appearance: She is not toxic-appearing or diaphoretic. HENT: Head: Normocephalic and atraumatic. Nose: Right Sinus: Frontal sinus tenderness present. Left Sinus: Frontal sinus tenderness present. Cardiovascular: Rate and Rhythm: Normal rate and regular rhythm. Heart sounds: Normal heart sounds, S1 normal and S2 normal. Pulmonary: Effort: Pulmonary effort is normal. Breath sounds: Normal breath sounds. Lymphadenopathy: Cervical: No cervical adenopathy. Right cervical: No superficial cervical adenopathy. Left cervical: No superficial cervical adenopathy. Neurological: Mental Status: She is alert and oriented to person, place, and time. Gait: Gait is intact. ASSESSMENT/PLAN: 1. Subacute cough - ICD9: 786.2, ICD10: R05.2 (primary diagnosis) Return for xray tomorrow Treat per results . - XR CHEST 2V FRONTAL/LAT 2. Sore throat - ICD9: 462, ICD10: J02.9 negative - ALERE STREP A TEST (AG) 3. Sinus pressure - ICD9: 478.19, ICD10: J34.89 Call in atb tomorrow after xray resulted. Riri Eaton APRN.BELT CHANGER Allergies As of Date: 04/20/2024 (No Known Allergies) Date Reviewed: 04/20/2024 Reviewed by: Anny Dumont MA - Fully Assessed Reason for Visit: Cough [28] Cmt: X2 weeks, R ear pain Primary Visit Diagnosis:Subacute cough [R05.2] Other Visit Diagnoses:Sore throat [J02.9] Sinus pressure [J34.89] Order(s):ALERE STREP A TEST (AG) [6120521] Order #: [id number] STREP A MOLECULAR (POC) [3642901] Order #: [id number]. #:[id number] XR CHEST 2V FRONTAL/LAT [[id number]] Order #: [id number] Prescriptions as of 04/20/2024 - REGLAN 10 mg tablet 10 mg. - IMITREX 50 mg tablet 50 mg. - aspirin, enteric coated (ECOTRIN LOW STRENGTH) 81 mg EC tablet Take 1 tablet by mouth once daily. - vit,calc76/iron/foli c (PNV 29-1 ORAL) Take by mouth once daily. Problem List As Of Date 04/20/2024 Noted Resolved Supervision of normal [Z34.90] 11/29/2023 Encounter Status:Closed by RIRI EATON on 04/20/24 Normal [facility] STREP A MOLECULAR (POC)on Procedural Control Valid [facility] Strep A (POCT) Negative Negative [facility] No Panel Informationon 04-15 Culture Urine 10,000 - 50,000 cfu/ml Mixed growth consistent with normal urogenital siena. [facility] Work Phone: .Auto Diffon 04-07-2024 Basophil, Absolute 0.0 10 3/mcL Normal 0.0-0.2 [facility] Comment on above: Performed By: #### C BC, OMAR, CMP, ANEU, GFR, LIP, ADIFF #### [id number] [place], [place] [address] Basophils/100 WBC (Bld) 0.2 % Normal 0.0-2.5 [facility] Comment on above: Performed By: #### C BC, OMAR, CMP, ANEU, GFR, LIP, ADIFF #### [id number] [place], [place] [address] Eosinophil, Absolute 0.1 10 3/mcL Normal 0.0-0.7 [facility] Comment on above: Performed By: #### C BC, OMAR, CMP, ANEU, GFR, LIP, ADIFF #### [id number] [place], [place] [address] Eosinophils/100 WBC (Bld) 1.0 % Normal 0.0-7.0 [facility] Comment on above: Performed By: #### C BC, OMAR, CMP, ANEU, GFR, LIP, ADIFF #### [address] [address] Lymphocyte, Absolute 0.7 10 3/mcL Low 0.9-4.3 [facility] Comment on above: Performed By: #### C BC, OMAR, CMP, ANEU, GFR, LIP, ADIFF #### [address] [address] Lymphocytes/100 WBC (Bld) 6.8 % Low 20.0-40.0 [facility] Comment on above: Performed By: #### C BC, OMAR, CMP, ANEU, GFR, LIP, ADIFF #### [address] [address] Monocyte, Absolute 0.5 10 3/mcL Normal 0.1-1.4 [facility] Comment on above: Performed By: #### C BC, OMAR, CMP, ANEU, GFR, LIP, ADIFF #### [address] [address] Monocytes/100 WBC (Bld) 5.1 % Normal 2.0-13.0 [facility] Comment on above: Performed By: #### C BC, OMAR, CMP, ANEU, GFR, LIP, ADIFF #### [address] [address] Neutrophils/100 WBC (Bld) 86.9 % High 50.0-75.0 [facility] Comment on above: Performed By: #### C BC, OMAR, CMP, ANEU, GFR, LIP, ADIFF #### [address] [address] .GFRon 04-07-2024 GFR 171 ml/min/1.73sqm Normal [facility] Comment on above: Result Comment: GFR Population mean for , Non- Americans Ages 20-29 = 116 mL/min/1.73 sq.m. Ages 30-39 = 107 mL/min/1.73 sq.m. Ages 40-49 = 99 mL/min/1.73 sq.m. Ages 50-59 = 93 mL/min/1.73 sq.m. Ages 60-69 = 85 mL/min/1.73 sq.m. Ages 70+ = 75 mL/min/1.73 sq.m. Chronic Kidney Disease: Less than 60 mL/min/1.73 square meters End Stage Renal Disease: Less than 15 mL/min/1.73 square meters Performed By: #### C BC, OMAR, CMP, ANEU, GFR, LIP, ADIFF #### [address] [address] GFR Non- 141 ml/min/1.73sqm Normal [facility] Comment on above: Result Comment: GFR Population mean for , Non- Americans Ages 20-29 = 116 mL/min/1.73 sq.m. Ages 30-39 = 107 mL/min/1.73 sq.m. Ages 40-49 = 99 mL/min/1.73 sq.m. Ages 50-59 = 93 mL/min/1.73 sq.m. Ages 60-69 = 85 mL/min/1.73 sq.m. Ages 70+ = 75 mL/min/1.73 sq.m. Chronic Kidney Disease: Less than 60 mL/min/1.73 square meters End Stage Renal Disease: Less than 15 mL/min/1.73 square meters Performed By: #### C BC, OMAR, CMP, ANEU, GFR, LIP, ADIFF #### [address] [address] .NEUABSon 04-07-2024 Neutrophil, Absolute 8.6 10 3/mcL High 2.3-8.1 [facility] Comment on above: Performed By: #### C BC, OMAR, CMP, ANEU, GFR, LIP, ADIFF #### [address] [address] AMYon 04-07-2024 Amylase [Catalytic activity/Vol] 29 U/L Normal 25-115 [facility] Comment on above: Performed By: #### C BC, OMAR, CMP, ANEU, GFR, LIP, ADIFF #### [address] [address] CBCon 04-07-2024 Erythrocyte distribution width (RBC) [Ratio] 12.9 % Normal 11.5-15.5 [facility] Comment on above: Performed By: #### C BC, OMAR, CMP, ANEU, GFR, LIP, ADIFF #### [place] [address] Hematocrit (Bld) [Volume fraction] 35.8 % Normal 34.0-46.0 [facility] Comment on above: Performed By: #### C BC, OMAR, CMP, ANEU, GFR, LIP, ADIFF #### [place] [address] Hgb 11.9 G/dL Low 12.0-16.0 [facility] Comment on above: Performed By: #### C BC, OMAR, CMP, ANEU, GFR, LIP, ADIFF #### [place] [address] MCH (RBC) [Entitic mass] 29.7 pg Normal 27.0-33.0 [facility] Comment on above: Performed By: #### C BC, OMAR, CMP, ANEU, GFR, LIP, ADIFF #### [place] [address] MCHC 33.2 G/dL Normal 32.0-36.0 [facility] Comment on above: Performed By: #### C BC, OMAR, CMP, ANEU, GFR, LIP, ADIFF #### [place] [address] MCV (RBC) [Entitic vol] 89.4 fL Normal 80.0-99.0 [facility] Comment on above: Performed By: #### C BC, OMAR, CMP, ANEU, GFR, LIP, ADIFF #### [place] [address] Platelet 190 10 3/mcL Normal 150-450 [facility] Comment on above: Performed By: #### C BC, OMAR, CMP, ANEU, GFR, LIP, ADIFF #### [place] [address] [place], [place] [address] Platelet mean volume (Bld) [Entitic vol] 9.1 fL Normal 6.6-10.5 [facility] Comment on above: Performed By: #### C BC, OMAR, CMP, ANEU, GFR, LIP, ADIFF #### [address] [address] RBC 4.00 10 6/mcL Low 4.10-5.30 [facility] Comment on above: Performed By: #### C BC, OMAR, CMP, ANEU, GFR, LIP, ADIFF #### [address] [address] WBC 9.9 10 3/mcL Normal 4.5-10.8 [facility] Comment on above: Performed By: #### C BC, OMAR, CMP, ANEU, GFR, LIP, ADIFF #### [address] [address] CMPon 04-07-2024 Albumin Level 2.9 G/dL Low 3.5-5.0 [facility] Comment on above: Performed By: #### C BC, OMAR, CMP, ANEU, GFR, LIP, ADIFF #### [place] [address] Albumin/Globulin [Mass ratio] 0.9 {ratio} Low 1.1-2.5 [facility] Comment on above: Performed By: #### C BC, OMAR, CMP, ANEU, GFR, LIP, ADIFF #### [address] [address] ALP [Catalytic activity/Vol] 109 U/L Normal 40-135 [facility] Comment on above: Performed By: #### C BC, OMAR, CMP, ANEU, GFR, LIP, ADIFF #### [address] [address] ALT [Catalytic activity/Vol] 36 U/L Normal 14-59 [facility] Comment on above: Performed By: #### C BC, OMAR, CMP, ANEU, GFR, LIP, ADIFF #### [address] [address] AST [Catalytic activity/Vol] 14 U/L Normal 10-40 [facility] Comment on above: Performed By: #### C BC, OMAR, CMP, ANEU, GFR, LIP, ADIFF #### [address] [address] Bili Total 0.4 mg/dL Normal 0.2-1.0 [facility] Comment on above: Result Comment: Use of this assay is not recommended for patients undergoing treatment with eltrombopag due to the potential for falsely elevated results. Performed By: #### C BC, OMAR, CMP, ANEU, GFR, LIP, ADIFF #### [place] [address] BUN/Creatinine Ratio 13 ratio Normal 7-27 [facility] Comment on above: Performed By: #### C BC, OMAR, CMP, ANEU, GFR, LIP, ADIFF #### [address] [address] Calcium [Mass/Vol] 8.5 mg/dL Normal 8.4-10.2 [facility] Comment on above: Performed By: #### C BC, OMAR, CMP, ANEU, GFR, LIP, ADIFF #### [address] [address] Chloride [Moles/Vol] 102 mmol/L Normal 98-107 [facility] Comment on above: Performed By: #### C BC, OMAR, CMP, ANEU, GFR, LIP, ADIFF #### [address] [address] CO2 [Moles/Vol] 27 mmol/L Normal 22-29 [facility] Comment on above: Performed By: #### C BC, OMAR, CMP, ANEU, GFR, LIP, ADIFF #### [address] [address] Creatinine [Mass/Vol] 0.54 mg/dL Low 0.55-1.02 [facility] Comment on above: Result Comment: Test ing performed on Siemens Dimension EXL analyzer using a modified kinetic She technique. Performed By: #### C BC, OMAR, CMP, ANEU, GFR, LIP, ADIFF #### [address] [address] Electrolyte Balance 7.0 mEq/L Normal 4.0-15.0 [facility] Comment on above: Performed By: #### C BC, OMAR, CMP, ANEU, GFR, LIP, ADIFF #### [address] [address] Globulin 3.3 G/dL Normal [facility] Comment on above: Performed By: #### C BC, OMAR, CMP, ANEU, GFR, LIP, ADIFF #### [place] [address] Glucose [Mass/Vol] 89 mg/dL Normal 70-105 [facility] Comment on above: Performed By: #### C BC, OMAR, CMP, ANEU, GFR, LIP, ADIFF #### [place] [address] Potassium [Moles/Vol] 3.7 mmol/L Normal 3.5-5.1 [facility] Comment on above: Performed By: #### C BC, OMAR, CMP, ANEU, GFR, LIP, ADIFF #### [place] [address] Sodium [Moles/Vol] 136 mmol/L Normal 136-145 [facility] Comment on above: Performed By: #### C BC, OMAR, CMP, ANEU, GFR, LIP, ADIFF #### [address] [address] Total Protein 6.2 G/dL Low 6.4-8.2 [facility] Comment on above: Performed By: #### C BC, OMAR, CMP, ANEU, GFR, LIP, ADIFF #### [place] [id number] Urea nitrogen [Mass/Vol] 7 mg/dL Normal 7-18 [facility] Comment on above: Performed By: #### C BC, OMAR, CMP, ANEU, GFR, LIP, ADIFF #### [place] [address] [place], [place] [address] LABORATORYOrdered By: SYSTEM SYSTEM on 04-07-2024 Albumin BCP dye [Mass/Vol] 2.9 G/dL Low 3.5 - 5.0 G/dL AO ADM SS Albumin/Globulin [Mass ratio] 0.9 {ratio} Low 1.1 - 2.5 ratio AO ADM SS ALP [Catalytic activity/Vol] 109 U/L Normal 40 - 135 U/L AO ADM SS ALT With P-5'-P [Catalytic activity/Vol] 36 U/L Normal 14 - 59 U/L AO ADM SS Amylase [Catalytic activity/Vol] 29 U/L Normal 25 - 115 U/L AO ADM SS AST With P-5'-P [Catalytic activity/Vol] 14 U/L Normal 10 - 40 U/L AO ADM SS Basophils (Bld) [#/Vol] 0.0 103/mcL Normal 0.0 - 0.2 10^3/mcL AO Workflow SS Basophils/100 WBC (Bld) 0.2 % Normal 0.0 - 2.5 % AO Workflow SS Bilirubin [Mass/Vol] 0.4 mg/dL Normal 0.2 - 1.0 mg/dL AO ADM SS Comment on above: Interpretive Data: U se of this assay is not recommended for patients undergoing treatment with eltrombopag due to the potential for falsely elevated results. Calcium [Mass/Vol] 8.5 mg/dL Normal 8.4 - 10.2 mg/dL AO ADM SS Chloride [Moles/Vol] 102 mmol/L Normal 98 - 107 mmol/L AO ADM SS CO2 [Moles/Vol] 27 mmol/L Normal 22 - 29 mmol/L AO AD M SS Creatinine [Mass/Vol] 0.54 mg/dL Low 0.55 - 1.02 mg/dL AO ADM SS Comment on above: Interpretive Data: T esting performed on Siemens Dimension EXL analyzer using a modified kinetic She technique. Electrolyte Balance 7.0 mEq/L Normal 4.0 - 15.0 mEq/L AO ADM SS Eosinophil, Absolute 0.1 103/mcL Normal 0.0 - 0 .7 10^3/mcL AO Workflow SS Eosinophils/100 WBC (Bld) 1.0 % Normal 0.0 - 7.0 % AO Workflow SS Erythrocyte distribution width (RBC) [Ratio] 12.9 % Normal 11.5 - 15.5 % AO Workflow SS GFR/1.73 sq M.predicted among blacks MDRD (S/P/Bld) [Vol rate/Area] 171 ml/min/1.73sqm Invalid Interpretation Code AO Chemistry S Comment on above: Interpretive Data: GFR Population mean for , Non- Americans Ages 20-29 = 116 mL/min/1.73 sq.m. Ages 30-39 = 107 mL/min/1.73 sq.m. Ages 40-49 = 99 mL/min/1.73 sq.m. Ages 50-59 = 93 mL/min/1.73 sq.m. Ages 60-69 = 85 mL/min/1.73 sq.m. Ages 70+ = 75 mL/min/1.73 sq.m. Chronic Kidney Disease: Less than 60 mL/min/1.73 square meters End Stage Renal Disease: Less than 15 mL/min/1.73 square meters GFR/1.73 sq M.predicted among non-blacks MDRD (S/P/Bld) [Vol rate/Area] 141 ml/min/1.73sqm Invalid Interpretation Code AO Chemistry S Comment on above: Interpretive Data: GFR Population mean for , Non- Americans Ages 20-29 = 116 mL/min/1.73 sq.m. Ages 30-39 = 107 mL/min/1.73 sq.m. Ages 40-49 = 99 mL/min/1.73 sq.m. Ages 50-59 = 93 mL/min/1.73 sq.m. Ages 60-69 = 85 mL/min/1.73 sq.m. Ages 70+ = 75 mL/min/1.73 sq.m. Chronic Kidney Disease: Less than 60 mL/min/1.73 square meters End Stage Renal Disease: Less than 15 mL/min/1.73 square meters Globulin 3.3 G/dL Invalid Interpretation Code AO ADM SS Glucose [Mass/Vol] 89 mg/dL Normal 70 - 105 mg/dL AO ADM SS Hematocrit (Bld) [Volume fraction] 35.8 % Normal 34.0 - 46.0 % AO Workflow SS Hemoglobin (Bld) [Mass/Vol] 11.9 G/dL Low 12.0 - 16.0 G/dL AO Workflow SS Lipase [Catalytic activity/Vol] 21 U/L Normal 16 - 77 U/L AO ADM SS Lymphocytes (Bld) [#/Vol] 0.7 103/mcL Low 0.9 - 4.3 10^3/mcL AO Workflow SS Lymphocytes/100 WBC (Bld) 6.8 % Low 20.0 - 40.0 % AO Workflow SS MCH (RBC) [Entitic mass] 29.7 pg Normal 27.0 - 33.0 pg AO Workflow SS MCHC 33.2 G/dL Normal 32.0 - 36.0 G/dL AO Workf low SS MCV (RBC) [Entitic vol] 89.4 fL Normal 80.0 - 99.0 fL AO Workflow SS Monocytes (Bld) [#/Vol] 0.5 103/mcL Normal 0.1 - 1.4 10^3/mcL AO Workflow SS Monocytes/100 WBC (Bld) 5.1 % Normal 2.0 - 13.0 % AO Workflow SS Neutrophils (Bld) [#/Vol] 8.6 103/mcL High 2.3 - 8.1 10^3/mcL AO Workflow SS Neutrophils/100 WBC (Bld) 86.9 % High 50.0 - 75.0 % AO Workflow SS Platelet mean volume (Bld) [Entitic vol] 9.1 fL Normal 6.6 - 10.5 fL AO Workflow SS Platelets (Bld) [#/Vol] 190 103/mcL Normal 150 - 450 10^3/mcL AO Workflow SS Potassium [Moles/Vol] 3.7 mmol/L Normal 3.5 - 5.1 mmol/L AO ADM SS Protein [Mass/Vol] 6.2 G/dL Low 6.4 - 8.2 G/dL AO ADM SS RBC (Bld) [#/Vol] 4.00 106/mcL Low 4.10 - 5.3 0 10^6/mcL AO Workflow SS Sodium [Moles/Vol] 136 mmol/L Normal 136 - 145 mmol/L AO ADM SS Urea nitrogen [Mass/Vol] 7 mg/dL Normal 7 - 18 mg/dL AO ADM SS Urea nitrogen/Creatinine [Mass ratio] 13 ratio Normal 7 - 27 ratio AO ADM SS WBC (Bld) [#/Vol] 9.9 103/mcL Normal 4.5 - 10.8 10^3/[facility] AO Workflow SS LABORATORYOrdered By: Ahsan Nelson on 04-07-2024 Appearance (U) Clear (04/07/24 10:16 AM) Normal Clear AO Auto Urine SS Bilirubin Ql (U) Negative (04/07/24 10:16 AM) Normal Negative AO Auto Urine SS Color (U) Yellow (04/07/24 10:16 AM) Normal AO Auto Urine SS Glucose Test strip (U) [Mass/Vol] Negative Normal Negative AO Auto Urine SS Hemoglobin Auto test strip (U) [Mass/Vol] Negative (04/07/24 10:16 AM) Normal Negative AO Auto Urine SS Ketones Ql (U) Negative Normal Negative AO Auto Urine SS UA Leuk Est Negative (04/07/24 10:16 AM) Normal Negative AO Auto Urine SS UA Nitrite Negative (04/07/24 10:16 AM) Normal Negative AO Auto Urine SS UA pH 7.0 (04/07/24 10:16 AM) Normal 5.0 - 8.0 AO Auto Urine SS UA Protein Negative Normal Negative AO Auto Urine SS UA Spec Grav 1.020 (04/07/24 10:16 AM) Normal 1.015-1.025 AO Auto Urine SS UA Specimen Type Clean Catch (04/07/24 10:16 AM) Normal AO Auto Urine SS UA Urobilinogen 0.2 E.U./dL Normal 0.2-1.0 AO Auto Urine SS LIPon 04-07-2024 Lipase Level 21 U/L Normal 16-77 [facility] Comment on above: Performed By: #### C BC, OMAR, CMP, ANEU, GFR, LIP, ADIFF #### [address] [address] UAon 04-07-2024 Color (U) Yellow Normal [facility] Comment on above: Performed By: #### U A #### [address] [address] Glucose (U) [Mass/Vol] Negative Normal Negative [facility] Comment on above: Performed By: #### U A #### [address] [address] Ketones Ql (U) Negative Normal Negative [facility] Comment on above: Performed By: #### U A #### [address] [address] UA Appear Clear Normal Clear [facility] Comment on above: Performed By: #### U A #### [address] [address] UA Blood Negative Normal Negative [facility] Comment on above: Performed By: #### U A #### [place] [address] UA Leuk Est Negative Normal Negative [facility] Comment on above: Performed By: #### U A #### [place] [address] UA Nitrite Negative Normal Negative [facility] Comment on above: Performed By: #### U A #### [place] [address] UA pH 7.0 Normal 5.0 - 8.0 [facility] Comment on above: Performed By: #### U A #### [place] [address] UA Protein Negative Normal Negative [facility] Comment on above: Performed By: #### U A #### [place] [address] UA Spec Grav 1.020 Normal 1.015-1.025 [facility] Comment on above: Performed By: #### U A #### [place] [address] UA Specimen Type Clean Catch Normal [facility] Comment on above: Performed By: #### U A #### [place] [address] UA Urobilinogen 0.2 E.U./dL Normal 0.2-1.0 [facility] Comment on above: Performed By: #### U A #### [place] [address] Urobilinogen (U) [Mass/Vol] Negative Normal Negative [facility] Comment on above: Performed By: #### U A #### [address] [address] US RENALon 04-07-2024 US RENAL ORIGINAL EXAMINATION: RETROPERITONEAL ULTRASOUND OF THE KIDNEYS AND URINARY BLADDER 04/07/2024 COMPARISON: None HISTORY: ORDERING SYSTEM PROVIDED HISTORY: Reason for Exam: right hydronephrosis FINDINGS: Kidneys: The right kidney measures 10.9 cm in length and the left kidney measures 9.1 cm in length. Mild right pelvicaliectasis. Bilateral renal cortex is unremarkable in thickness and echogenicity. No significant left hydronephrosis. No sonographic evidence of suspicious renal lesions or intrarenal stones. Bladder: Unremarkable appearance of the urinary bladder. Bilateral ureteral jets are noted. 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 I have personally reviewed the images of this examination and agree with the resident's findings and interpretation. Interpreted by: Tc Carcamo Preliminary Report By: Tian Wei Electronically signed By Tc Carcamo Dictated Date: 04/07/2024 11:12:49 AM Prelim Date: 04/07/2024 11:24:13 AM Sign Date: 04/07/2024 11:24:13 AM Ordering Provider: PACO MANCILLA [facility] 03-12-[id number] [facility] Comment on above: Order Comment: Cysti c Fibrosis (CF) Full-Gene Carrier Screen Performed By: #### [id number] #### [address] [address] Test Name Cystic Fibrosis Full-Gene [facility] Comment on above: Order Comment: Cysti c Fibrosis (CF) Full-Gene Carrier Screen Performed By: #### [id number] #### [address] [address] [facility] 03-10-2024 [facility] [place] COMMENT Normal [facility] Comment on above: Order Comment: Cysti c Fibrosis (CF) Full-Gene Carrier Screen Result Comment: Test Ordered: [id number] CF Full-gene Carrier Screen CF Full-gene Carrier Screen Note EXENC TESTS RESULT FLAG UNITS REF RANGE LAB Ethnicity 01 Not Provided Specimen Type 01 Whole Blood Indication 01 Carrier Test / Screening Result: 01 NEGATIVE Interpretation 01 Negative Results Disorders (Gene) Result Interpretation Cystic fibrosis NEGATIVE This result reduces, (CFTR) but does not [id number] eliminate, the risk to be a carrier. Risk: NOT at an increased risk for an affected . Recommendations 01 If the above result is positive, genetic counseling is recommended to discuss the potential clinical and/or reproductive implications, as well as recommendations for testing family members and, when applicable, this individual's partner. Genetic counseling services are available. To access [facility] please visit [email or web address] or call [phone] ([phone]). Additional Clinic... 01 Cystic fibrosis (CF) is an autosomal recessive disorder with variable severity and age at onset. Signs and symptoms of classic CF may include elevated sweat chloride levels, progressive lung disease, pancreatic insufficiency, and male infertility. Symptoms of mild CF may include pancreatic sufficiency. Symptoms of CFTR-related disorders may include pancreatitis, bronchiectasis, and isolated male infertility due to congenital absence of the vas deferens (CBAVD). Treatment is dietary and supportive. Genotype-targeted therapies may be available for some individuals. In severely affected individuals, lung transplantation may be indicated. (PMID:94954803). Comments 01 This interpretation is based on the clinical information provided and the current understanding of the molecular genetics of the disorder(s) tested. Information about the disorder(s) tested is available at [email or web address]. Methods/Limitations 01 Next-generation Sequencing (NGS): Genomic regions of interest are selected using the Yunzhisheng(R) hybridization capture method and sequenced via the IndelsulR) NGS platform. Sequencing reads are aligned to the human genome reference GRCh37/hg19 build. Regions of interest include coding exons, intron/exon junctions (typically +/- 20 nucleotides) and additional genomic regions with known significant pathogenic variants. Analytical sensitivity is estimated to be >99% for single nucleotide variants and small insertions/deletions. Variant detection is performed by [address] and in-house algorithms. Single exon deletions or duplications can be detected in the CFTR gene with estimated overall analytical sensitivity >99%. Precise breakpoints are not reported. Single-exon deletions or duplications are not detected in some cases due to CNV size limitations, or due to isolated data quality variation or intrinsic sequence properties. Confirmatory testing by orthogonal technologies may include [place]view sequencing, or MLPA analysis. Reported variants: Pathogenic and likely pathogenic variants are reported for all tests. Benign and likely benign variants are typically not reported. Variants of uncertain significance are reported when included in the test specification. Variants are specified using the numbering and nomenclature recommended by the Human Genome Variation Society (HGVS, http://www.hgvs.org/). Variant classification and confirmation are consistent with ACMG standards and guidelines (Robert, PMID:[id number]; Adelina, PMID:93360556). Detailed variant classification information and reevaluation are available upon request. Limitations: Technologies used do not detect germline mosaicism and do not rule out the presence of large chromosomal aberrations including rearrangements and gene fusions, or variants in regions or genes not included in this test, or possible inter/intragenic interactions between variants, or repeat expansions. Variant classification and/or interpretation may address change clerk time if more information becomes available. False positive or false negative results may occur for reasons that include: rare genetic variants, sex chromosome abnormalities, pseudogene interference, blood transfusions, bone marrow transplantation, somatic or tissue-specific mosaicism, mislabeled samples, or erroneous representation of family relationships. This test was developed and its performance characteristics determined by [facility]. It has not been cleared or approved by the Food and Drug Administration. References 01 Shasta BROWN, Bakari C, Agnieszka ROLDAN et al. CFTR variant testing: a technical standard of the [employer] (ACMG). Cynthia Med 22 1287 (2020). PMID: [id number] Star T, Venu SG, Nely BA, et al. Cystic Fibrosis and Congenital A (more content not included)... Performed By: #### [id number] #### [address] [address] RPRon 02-15-2024 Reagin Ab RPR Ql (S) Non-Reactive Normal Non-Reactive [facility] ([place]) Comment on above: Result Comment: The RPR test is a non-treponemal assay useful as an aid in the diagnosis of primary and secondary syphilis. It converts to positive generally within 2 weeks after the appearance of a lesion. This test is also useful for monitoring response to antibiotic therapy. A positive RPR screening test will be followed by the FTA ABS test. False positive RPR tests may occur in 1) patients with underlying autoimmune disorders, 2) elderly patients, 3) , and 4) other conditions with abnormal serum globulins. Performed By: #### H CV1, VARIS, RPR, RUBIS, HBSAG ####[place] [address]#### ABSGEL, CBC, A1C, ABOGEL, ANEU, CMP, ADIFF, GFR ####[id number] [place] [address] RUBISon 02-15-[address] Positive Normal Positive [facility] ([place]) Comment on above: Result Comment: This immune status assay detects IgM and/or IgG antibody to Rubella. Interpret results in conjunction with clinical history. POS: Antibody detected; exposure at undetermined recent or distant time. If clinically indicated, order Rubella IGM to rule out recent infection. NEG: No antibody detected. Performed By: #### H CV1, VARIS, RPR, RUBIS, HBSAG ####[place] [address]#### ABSGEL, CBC, A1C, ABOGEL, ANEU, CMP, ADIFF, GFR ####[id number] [place] [address] VARISon 02-15-[address] Positive Normal [facility] ([place]) Comment on above: Result Comment: INTE RPRETATION OF VARICELLA IMMUNE STATUS IgG BY EIA: Negative: No detectable VZV IgG antibody. Positive: VZV IgG antibody Detected. If clinically indicated, order Varicella IgM to rule out recent infection. Equivocal: Equivocal for antibodies to VZV. Suggest repeat testing in 10-14 days. Performed By: #### H CV1, VARIS, RPR, RUBIS, HBSAG ####[place] [address]#### ABSGEL, CBC, A1C, ABOGEL, ANEU, CMP, ADIFF, GFR ####[address] [address] .Auto Diffon 02-14-2024 Basophil, Absolute 0.0 10 3/mcL Normal 0.0-0.2 [facility] ([place]) Comment on above: Performed By: #### H CV1, VARIS, RPR, RUBIS, HBSAG #### [place] [address] #### ABSGEL, CBC, A1C, ABOGEL, ANEU, CMP, ADIFF, GFR #### [address] [address] Basophils/100 WBC (Bld) 0.3 % Normal 0.0-2.5 [facility] ([place]) Comment on above: Performed By: #### H CV1, VARIS, RPR, RUBIS, HBSAG #### [place] [address] #### ABSGEL, CBC, A1C, ABOGEL, ANEU, CMP, ADIFF, GFR #### [address] [address] Eosinophil, Absolute 0.2 10 3/mcL Normal 0.0-0.4 [facility] ([place]) Comment on above: Performed By: #### H CV1, VARIS, RPR, RUBIS, HBSAG #### [place] [address] #### ABSGEL, CBC, A1C, ABOGEL, ANEU, CMP, ADIFF, GFR #### [address] [address] Eosinophils/100 WBC (Bld) 2.6 % Normal 0.0-7.0 [facility] ([place]) Comment on above: Performed By: #### H CV1, VARIS, RPR, RUBIS, HBSAG #### [place] [address] #### ABSGEL, CBC, A1C, ABOGEL, ANEU, CMP, ADIFF, GFR #### [address] [address] Lymphocyte, Absolute 1.9 10 3/mcL Normal 0.8-3.9 [facility] ([place]) Comment on above: Performed By: #### H CV1, VARIS, RPR, RUBIS, HBSAG #### [place] [address] #### ABSGEL, CBC, A1C, ABOGEL, ANEU, CMP, ADIFF, GFR #### [address] [address] Lymphocytes/100 WBC (Bld) 20.3 % Normal 10.0-50.0 [facility] ([place] Comment on above: Performed By: #### H CV1, VARIS, RPR, RUBIS, HBSAG #### [place] [address] #### ABSGEL, CBC, A1C, ABOGEL, ANEU, CMP, ADIFF, GFR #### [address] [address] Monocyte, Absolute 0.8 10 3/mcL Normal 0.2-1.0 [facility] ([place]) Comment on above: Performed By: #### H CV1, VARIS, RPR, RUBIS, HBSAG #### [place] [address] #### ABSGEL, CBC, A1C, ABOGEL, ANEU, CMP, ADIFF, GFR #### [address] [address] Monocytes/100 WBC (Bld) 8.6 % Normal 1.7-13.0 [facility] ([place]) Comment on above: Performed By: #### H CV1, VARIS, RPR, RUBIS, HBSAG #### [place] [address] #### ABSGEL, CBC, A1C, ABOGEL, ANEU, CMP, ADIFF, GFR #### [address] [address] Neutrophils/100 WBC (Bld) 68.2 % Normal 37.0-80.0 [facility] ([place]) Comment on above: Performed By: #### H CV1, VARIS, RPR, RUBIS, HBSAG #### [place] [address] #### ABSGEL, CBC, A1C, ABOGEL, ANEU, CMP, ADIFF, GFR #### [address] [address] .GFRon 02-14-2024 GFR Non- 126 ml/min/1.73sqm Normal [facility] ([place]) Comment on above: Result Comment: GFR Population mean for , Non- Americans Ages 20-29 = 116 mL/min/1.73 sq.m. Ages 30-39 = 107 mL/min/1.73 sq.m. Ages 40-49 = 99 mL/min/1.73 sq.m. Ages 50-59 = 93 mL/min/1.73 sq.m. Ages 60-69 = 85 mL/min/1.73 sq.m. Ages 70+ = 75 mL/min/1.73 sq.m. Chronic Kidney Disease: Less than 60 mL/min/1.73 square meters End Stage Renal Disease: Less than 15 mL/min/1.73 square meters Performed By: #### H CV1, VARIS, RPR, RUBIS, HBSAG #### [place] [address] #### ABSGEL, CBC, A1C, ABOGEL, ANEU, CMP, ADIFF, GFR #### [address] [address] GFR 153 ml/min/1.73sqm Normal [facility] ([place]) Comment on above: Result Comment: GFR Population mean for , Non- Americans Ages 20-29 = 116 mL/min/1.73 sq.m. Ages 30-39 = 107 mL/min/1.73 sq.m. Ages 40-49 = 99 mL/min/1.73 sq.m. Ages 50-59 = 93 mL/min/1.73 sq.m. Ages 60-69 = 85 mL/min/1.73 sq.m. Ages 70+ = 75 mL/min/1.73 sq.m. Chronic Kidney Disease: Less than 60 mL/min/1.73 square meters End Stage Renal Disease: Less than 15 mL/min/1.73 square meters Performed By: #### H CV1, VARIS, RPR, RUBIS, HBSAG #### [place] [address] #### ABSGEL, CBC, A1C, ABOGEL, ANEU, CMP, ADIFF, GFR #### [address] [address] .NEUABSon 02-14-2024 Neutrophil, Absolute 6.4 10 3/mcL High 2.9-6.2 [facility] ([place]) Comment on above: Performed By: #### H CV1, VARIS, RPR, RUBIS, HBSAG #### [place] [address] #### ABSGEL, CBC, A1C, ABOGEL, ANEU, CMP, ADIFF, GFR #### [address] [address] A1Con 02-14-2024 Glucose [Mass/Vol] 103 mg/dL Normal [facility] ([place]) Comment on above: Result Comment: Judi mated Average Glucose calculated by equation ((28.7xA1C)-46.7) Estimated average glucose (eAG) is a calculated value from Hemoglobin A1C and is shared services representative of the average blood glucose level in the last 2-3 month period. Normal range: less than 114 mg/dL Performed By: #### H CV1, VARIS, RPR, RUBIS, HBSAG #### [place] [address] #### ABSGEL, CBC, A1C, ABOGEL, ANEU, CMP, ADIFF, GFR #### [address] [address] HbA1c (Bld) [Mass fraction] 5.2 % Normal 4.3-6.4 [facility] ([place]) Comment on above: Performed By: #### H CV1, VARIS, RPR, RUBIS, HBSAG #### [place] [address] #### ABSGEL, CBC, A1C, ABOGEL, ANEU, CMP, ADIFF, GFR #### [address] [address] ABO/Rh (Gel)on 02-14-2024 ABO/Rh Interp Positive Invalid Interpretation Code [facility] ([place] Comment on above: Performed By: #### H CV1, VARIS, RPR, RUBIS, HBSAG ####[place] [address]#### ABSGEL, CBC, A1C, ABOGEL, ANEU, CMP, ADIFF, GFR ####[address] [address] ABS (Gel)on 02-14-2024 ABSC Interp (Gel) Negative Normal [facility] ([place]) Comment on above: Performed By: #### H CV1, VARIS, RPR, RUBIS, HBSAG ####[place] [address]#### ABSGEL, CBC, A1C, ABOGEL, ANEU, CMP, ADIFF, GFR ####[address] [address] CBCon 02-14-2024 Erythrocyte distribution width (RBC) [Ratio] 13.2 % Normal 11.5-14.5 [facility] ([place]) Comment on above: Performed By: #### H CV1, VARIS, RPR, RUBIS, HBSAG #### [place] [address] #### ABSGEL, CBC, A1C, ABOGEL, ANEU, CMP, ADIFF, GFR #### [address] [address] Hematocrit (Bld) [Volume fraction] 36.5 % Low 37.0-47.0 [facility] ([place]) Comment on above: Performed By: #### H CV1, VARIS, RPR, RUBIS, HBSAG #### [place] [address] #### ABSGEL, CBC, A1C, ABOGEL, ANEU, CMP, ADIFF, GFR #### [address] [address] Hgb 12.2 G/dL Normal 12.0-16.0 [facility] ([place] Comment on above: Performed By: #### H CV1, VARIS, RPR, RUBIS, HBSAG #### [place] [address] #### ABSGEL, CBC, A1C, ABOGEL, ANEU, CMP, ADIFF, GFR #### [address] [address] MCH (RBC) [Entitic mass] 30.4 pg Normal 27.0-31.2 [facility] ([place]) Comment on above: Performed By: #### H CV1, VARIS, RPR, RUBIS, HBSAG #### [place] [address] #### ABSGEL, CBC, A1C, ABOGEL, ANEU, CMP, ADIFF, GFR #### [address] [address] MCHC 33.5 G/dL Normal 33.0-37.0 [facility] ([place] Comment on above: Performed By: #### H CV1, VARIS, RPR, RUBIS, HBSAG #### [place] [address] #### ABSGEL, CBC, A1C, ABOGEL, ANEU, CMP, ADIFF, GFR #### [address] [address] MCV (RBC) [Entitic vol] 90.7 fL Normal 80.0-94.0 [facility] ([place]) Comment on above: Performed By: #### H CV1, VARIS, RPR, RUBIS, HBSAG #### [place] [address] #### ABSGEL, CBC, A1C, ABOGEL, ANEU, CMP, ADIFF, GFR #### [address] [address] Platelet 201 10 3/mcL Normal 130-400 [facility] ([place]) Comment on above: Performed By: #### H CV1, VARIS, RPR, RUBIS, HBSAG #### [place] [address] #### ABSGEL, CBC, A1C, ABOGEL, ANEU, CMP, ADIFF, GFR #### [address] [address] Platelet mean volume (Bld) [Entitic vol] 9.4 fL Normal 7.4-10.4 [facility] ([place] Comment on above: Performed By: #### H CV1, VARIS, RPR, RUBIS, HBSAG #### [place] [address] #### ABSGEL, CBC, A1C, ABOGEL, ANEU, CMP, ADIFF, GFR #### [address] [address] RBC 4.02 10 6/mcL Low 4.20-5.40 [facility] ([place]) Comment on above: Performed By: #### H CV1, VARIS, RPR, RUBIS, HBSAG #### [place] [address] #### ABSGEL, CBC, A1C, ABOGEL, ANEU, CMP, ADIFF, GFR #### [address] [address] WBC 9.4 10 3/mcL Normal 4.6-10.8 [facility] ([place]) Comment on above: Performed By: #### H CV1, VARIS, RPR, RUBIS, HBSAG #### [place] [address] #### ABSGEL, CBC, A1C, ABOGEL, ANEU, CMP, ADIFF, GFR #### [address] [address] CMPon 02-14-2024 Albumin Level 2.9 G/dL Low 3.5-5.0 [facility] ([place] Comment on above: Performed By: #### H CV1, VARIS, RPR, RUBIS, HBSAG #### [place] [address] #### ABSGEL, CBC, A1C, ABOGEL, ANEU, CMP, ADIFF, GFR #### [address] [address] Albumin/Globulin [Mass ratio] 0.8 {ratio} Low 1.1-2.5 [facility] ([place] Comment on above: Performed By: #### H CV1, VARIS, RPR, RUBIS, HBSAG #### [place] [address] #### ABSGEL, CBC, A1C, ABOGEL, ANEU, CMP, ADIFF, GFR #### [address] [address] ALP [Catalytic activity/Vol] 97 U/L Normal 40-135 [facility] ([place]) Comment on above: Performed By: #### H CV1, VARIS, RPR, RUBIS, HBSAG #### [place] [address] #### ABSGEL, CBC, A1C, ABOGEL, ANEU, CMP, ADIFF, GFR #### [address] [address] ALT [Catalytic activity/Vol] 40 U/L Normal 14-59 [facility] ([place]) Comment on above: Performed By: #### H CV1, VARIS, RPR, RUBIS, HBSAG #### [place] [address] #### ABSGEL, CBC, A1C, ABOGEL, ANEU, CMP, ADIFF, GFR #### [address] [address] AST [Catalytic activity/Vol] 17 U/L Normal 10-40 [facility] ([place] Comment on above: Performed By: #### H CV1, VARIS, RPR, RUBIS, HBSAG #### [place] [address] #### ABSGEL, CBC, A1C, ABOGEL, ANEU, CMP, ADIFF, GFR #### [address] [address] Bili Total 0.2 mg/dL Normal 0.2-1.0 [facility] ([place] Comment on above: Result Comment: Use of this assay is not recommended for patients undergoing treatment with eltrombopag due to the potential for falsely elevated results. Performed By: #### H CV1, VARIS, RPR, RUBIS, HBSAG #### [place] [address] #### ABSGEL, CBC, A1C, ABOGEL, ANEU, CMP, ADIFF, GFR #### [address] [address] BUN/Creatinine Ratio 8 ratio Normal 7-27 [facility] ([place]) Comment on above: Performed By: #### H CV1, VARIS, RPR, RUBIS, HBSAG #### [place] [address] #### ABSGEL, CBC, A1C, ABOGEL, ANEU, CMP, ADIFF, GFR #### [address] [address] Calcium [Mass/Vol] 8.8 mg/dL Normal 8.4-10.2 [facility] ([place]) Comment on above: Performed By: #### H CV1, VARIS, RPR, RUBIS, HBSAG #### [place] [address] #### ABSGEL, CBC, A1C, ABOGEL, ANEU, CMP, ADIFF, GFR #### [address] [address] Chloride [Moles/Vol] 105 mmol/L Normal 98-107 [facility] ([place]) Comment on above: Performed By: #### H CV1, VARIS, RPR, RUBIS, HBSAG #### [place] [address] #### ABSGEL, CBC, A1C, ABOGEL, ANEU, CMP, ADIFF, GFR #### [address] [address] CO2 [Moles/Vol] 26 mmol/L Normal 22-29 [facility] ([place]) Comment on above: Performed By: #### H CV1, VARIS, RPR, RUBIS, HBSAG #### [place] [address] #### ABSGEL, CBC, A1C, ABOGEL, ANEU, CMP, ADIFF, GFR #### [address] [address] Creatinine [Mass/Vol] 0.60 mg/dL Normal 0.55-1.02 [facility] ([place]) Comment on above: Performed By: #### H CV1, VARIS, RPR, RUBIS, HBSAG #### [place] [address] #### ABSGEL, CBC, A1C, ABOGEL, ANEU, CMP, ADIFF, GFR #### [address] [address] Electrolyte Balance 9.0 mEq/L Normal 4.0-15.0 [facility] ([place]) Comment on above: Performed By: #### H CV1, VARIS, RPR, RUBIS, HBSAG #### [place] [address] #### ABSGEL, CBC, A1C, ABOGEL, ANEU, CMP, ADIFF, GFR #### [address] [address] Globulin 3.6 G/dL Normal [facility] ([place]) Comment on above: Performed By: #### H CV1, VARIS, RPR, RUBIS, HBSAG #### [place] [address] #### ABSGEL, CBC, A1C, ABOGEL, ANEU, CMP, ADIFF, GFR #### [address] [address] Glucose [Mass/Vol] 88 mg/dL Normal 70-105 [facility] ([place]) Comment on above: Performed By: #### H CV1, VARIS, RPR, RUBIS, HBSAG #### [place] [address] #### ABSGEL, CBC, A1C, ABOGEL, ANEU, CMP, ADIFF, GFR #### [address] [address] Potassium [Moles/Vol] 3.7 mmol/L Normal 3.5-5.1 [facility] ([place]) Comment on above: Performed By: #### H CV1, VARIS, RPR, RUBIS, HBSAG #### [address] [address] #### ABSGEL, CBC, A1C, ABOGEL, ANEU, CMP, ADIFF, GFR #### [address] [address] Sodium [Moles/Vol] 140 mmol/L Normal 136-145 [facility] ([place]) Comment on above: Performed By: #### H CV1, VARIS, RPR, RUBIS, HBSAG #### [place] [address] #### ABSGEL, CBC, A1C, ABOGEL, ANEU, CMP, ADIFF, GFR #### [address] [address] Total Protein 6.5 G/dL Normal 6.4-8.2 [facility] ([place]) Comment on above: Performed By: #### H CV1, VARIS, RPR, RUBIS, HBSAG #### [place] [address] #### ABSGEL, CBC, A1C, ABOGEL, ANEU, CMP, ADIFF, GFR #### [address] [address] Urea nitrogen [Mass/Vol] 5 mg/dL Low 7-18 [facility] ([place]) Comment on above: Performed By: #### H CV1, VARIS, RPR, RUBIS, HBSAG #### [place] [address] #### ABSGEL, CBC, A1C, ABOGEL, ANEU, CMP, ADIFF, GFR #### [address] [address] HBSAGon 02-14-2024 Hep B Surf Ag Non-Reactive Normal Non-Reactive [facility] ([place]) Comment on above: Performed By: #### H CV1, VARIS, RPR, RUBIS, HBSAG ####[address] [address]#### ABSGEL, CBC, A1C, ABOGEL, ANEU, CMP, ADIFF, GFR ####[place] [address] [place], [place] [address] HCVon 02-14-2024 Hep C Ab Non-Reactive Normal Non-Reactive [facility] ([place]) Comment on above: Performed By: #### H CV1, VARIS, RPR, RUBIS, HBSAG ####[place] [address]#### ABSGEL, CBC, A1C, ABOGEL, ANEU, CMP, ADIFF, GFR ####[address] [place], [place] [address] Hep C Ab Int Normal [facility] ([place]) Comment on above: Result Comment: Nonr eactive: Samples with a value < 0.80 are considered nonreactive (negative) for antibodies to HCV. A negative test result does not exclude the possibility of exposure to or infection with HCV. HCV antibodies may be undetectable in some stages of the infection and in some clinical conditions. See Interp Performed By: #### H CV1, VARIS, RPR, RUBIS, HBSAG ####[place] [address]#### ABSGEL, CBC, A1C, ABOGEL, ANEU, CMP, ADIFF, GFR ####[address] [place], [place] [address] HIVRPon 02-14-2024 HIV p24 Antigen Non-Reactive Normal Non-Reactive [facility] ([place]) Comment on above: Result Comment: Dete ction of p24 may be inhibited by biotin in the sample, causing false negative results in acute infection. Therefore do not test samples from patients who are taking biotin. Performed By: #### H IVRP #### Katie [address] [address] HIV P24 Int Non-Reactive Invalid Interpretation Code [facility] ([place]) Comment on above: Performed By: #### H IVRP #### [place] [address] [address] Rapid HIV 1/2 Antibody Non-Reactive Normal Non-Reactive [facility] ([place]) Comment on above: Performed By: #### H IVRP #### [place] [address] [address] RHIV 1/2 Ab Int Non-Reactive Invalid Interpretation Code [facility] ([place]) Comment on above: Performed By: #### H IVRP #### [facility] [address] [place], [place] [address] DRUGUon 02-06-2024 Amphetamine (u) Negative Normal Negative [facility] ([place]) Comment on above: Performed By: #### Emre RUGU #### [place] [address] Barbiturate (u) Negative Normal Negative [facility] ([place]) Comment on above: Performed By: #### Emre RUGU #### [place] [id number] Benzodiazepine (u) Negative Normal Negative [facility] ([place]) Comment on above: Performed By: #### Emre RUGU #### [place] [id number] Cannabinoid (u) Negative Normal Negative [facility] ([place]) Comment on above: Performed By: #### Emre RUGU #### [place] [address] Cocaine Ql (U) Negative Normal Negative [facility] ([place]) Comment on above: Performed By: #### Emre RUGU #### [place] [id number] Fentanyl (u) Negative Normal Negative [facility] ([place]) Comment on above: Result Comment: Test ing has been performed FOR MEDICAL PURPOSES ONLY. Performed By: #### Emre RUGU #### [place] [id number] Methadone Ql (U) Negative Normal Negative [facility] ([place] Comment on above: Performed By: #### Emre RUGU #### [place] [id number] Opiate (u) Negative Normal Negative [facility] ([place] Comment on above: Performed By: #### Emre RUGU #### [place] [id number] Oxycodone (u) Negative Normal Negative [facility] ([place] Comment on above: Result Comment: Test ing has been performed FOR MEDICAL PURPOSES ONLY. Performed By: #### D RUGU #### [address] [address] PCP (u) Negative Normal Negative [facility] ([place]) Comment on above: Performed By: #### D RUGU #### [facility] [address] [place] [address] Propoxyphene (u) Negative Normal Negative [facility] ([place]) Comment on above: Performed By: #### D RUGU #### [address] [address] U pH Drug Scrn 7.0 Normal 5.0-8.0 [facility] ([place]) Comment on above: Performed By: #### D RUGU #### [place] [id number] Urine Drugs screened: See Below Normal [facility] ([place]) Comment on above: Result Comment: This drug screen is a presumptive screening only. No confirmation will be performed unless requested. Drugs screened include: Threshold Amphetamines/Methamphetamines 1,000 ng/mL Barbiturates 200 ng/mL Benzodiazepine metabolites 200 ng/mL Cannabinoids (THC metabolites) 50 ng/mL Benzoylecognine (Cocaine metab) 300 ng/mL Opiates 300 ng/mL Phencyclidine (PCP) 25 ng/mL Methadone 300 ng/mL Propoxyphene 300 ng/mL Fentanyl 1.0 ng/mL Oxycodone 100 ng/mL Testing has been performed FOR MEDICAL PURPOSES ONLY. Performed By: #### D RUGU #### [place] [address] LABORATORYOrdered By: Marisa So on 02-06-2024 Amphetamines Screen Ql (U) Negative *NA* (02/06/24 5:02 PM) Invalid Interpretation Code Negative AH ADM SS Barbiturates Screen Ql (U) Negative *NA* (02/06/24 5:02 PM) Invalid Interpretation Code Negative AH ADM SS Benzodiazepines Ql (U) Negative *NA* (02/06/24 5:02 PM) Invalid Interpretation Code Negative AH ADM SS Benzoylecgonine Screen Ql (U) Negative *NA* (02/06/24 5:02 PM) Invalid Interpretation Code Negative AH ADM SS Cannabinoids Screen Ql (U) Negative *NA* (02/06/24 5:02 PM) Invalid Interpretation Code Negative AH ADM SS fentaNYL Screen Ql (U) Negative 1 *NA* (02/06/24 5:02 PM) Invalid Interpretation Code Negative AH ADM SS Comment on above: Interpretive Data: T esting has been performed FOR MEDICAL PURPOSES ONLY. Methadone Screen Ql (U) Negative *NA* (02/06/24 5:02 PM) Invalid Interpretation Code Negative AH ADM SS Opiates Screen Ql (U) Negative *NA* (02/06/24 5:02 PM) Invalid Interpretation Code Negative AH ADM SS oxyCODONE Ql (U) Negative 2 *NA* (02/06/24 5:02 PM) Invalid Interpretation Code Negative AH ADM SS Comment on above: Interpretive Data: T esting has been performed FOR MEDICAL PURPOSES ONLY. pH (U) 7.0 [pH] Normal 5.0 - 8.0 AH Chemistry S Phencyclidine Ql (U) Negative *NA* (02/06/24 5:02 PM) Invalid Interpretation Code Negative AH ADM SS Propoxyphene Screen Ql (U) Negative *NA* (02/06/24 5:02 PM) Invalid Interpretation Code Negative AH ADM SS Urine Drugs screened: See Below 3 (02/06/24 5:02 PM) Normal AH Chemistry S Comment on above: Interpretive Data: T his drug screen is a presumptive screening only. No confirmation will be performed unless requested. Drugs screened include: Threshold Amphetamines/Methamphetamines 1,000 ng/mL Barbiturates 200 ng/mL Benzodiazepine metabolites 200 ng/mL Cannabinoids (THC metabolites) 50 ng/mL Benzoylecognine (Cocaine metab) 300 ng/mL Opiates 300 ng/mL Phencyclidine (PCP) 25 ng/mL Methadone 300 ng/mL Propoxyphene 300 ng/mL Fentanyl 1.0 ng/mL Oxycodone 100 ng/mL Testing has been performed FOR MEDICAL PURPOSES ONLY. No Panel Informationon 02-05 Culture Urine >100,000 cfu/ml Mixed growth consistent with normal urogenital siena. [facility] Work Phone: CNCOon 01-11-2024 CNCO Letter Text Normal [facility] Bacteria Ur Culton Bacteria identified Cx Nom (U) ORGANISM ID: 1 <10,000 CFU/ml Normal urogenital siena Normal [facility] Comment on above: Performed By: #### 6 30-4 #### [facility] CLIA [id number] [address] [place] [address] [place] C. trachomatis+N. gonorrhoea e DNA SKYLER+probe Ql (Unsp spec)on 11-29-2023 C. trachomatis rRNA SKYLER+probe Ql (Unsp spec) Negative Normal Negative for Chlamydia trachomatis by amplificaton [facility] Comment on above: Order Comment: Speci men Type: SWABOrdering Facility: [facility] Address: [address] [place] [address] Performed By: #### 3 6902-5 ####[facility] [id number] [place] [address] [place] N. gonorrhoeae rRNA SKYLER+probe Ql (Unsp spec) Negative Normal Negative for Neisseria gonorrhoeae by amplification [facility] Comment on above: Order Comment: Speci men Type: SWABOrdering Facility: [facility] Address: [address] [place] [address] Performed By: #### 3 6902-5 ####[facility] [id number] [place] [address] [place] PAP TESTon 11-29-2023 ADEQUACY Satisfactory for interpretation. Normal [facility] Comment on above: Order Comment: Speci men Type: FLUID SPECIMEN Ordering Facility: [facility] Address: [address] [place] [address] Performed By: #### L [id number] #### [facility] CLIA [id number] [address] [place] [address] [place] [facility] CLIA [id number] [address] [place] [address] [place] CASE REPORT Normal [facility] Comment on above: Order Comment: Speci men Type: FLUID SPECIMEN [facility]ing Facility: [facility] Address: [address] [place] [address] Result Comment: Gyne cologic Cytology Report Case: [id number] Authorizing Provider: Ivania Esquivel APRN.BELT CHANGER Collected: 11/29/2023 09:16 AM Ordering Location: OB/Gynecology Received: 11/29/2023 12:29 PM First Screen: Gersey, Nalini, CT, ASCP Specimen: Pap Test, ThinPrep, Cervix Performed By: #### L [id number] #### [facility] CLIA [id number] [address] [place] [address] [place] [facility] CLIA [id number] [address] [place] [address] [place] CLINICAL HISTORY, CYTOLOGY, RAIL TRACK LAYER Routine Exam Normal [facility] Comment on above: Order Comment: Speci men Type: FLUID SPECIMEN Ordering Facility: [facility] Address: [address] [place] [address] Performed By: #### L [id number] #### [facility] CLIA [id number] [address] [place] [address] [place] [facility] CLIA [id number] [address] [place] [address] [place] CYTOLOGY PAP OTHER INT Fungal organisms morphologically consistent with Luisa species. Normal [facility] Comment on above: Order Comment: Speci men Type: FLUID SPECIMEN [facility]ing Facility: [facility] Address: [address] [place] [address] Performed By: #### L [id number] #### [facility] CLIA [id number] [address] [place] [address] [place] [facility] CLIA [id number] [address] [place] [address] [place] FINAL PERFORMING LAB Normal [facility] Comment on above: Order Comment: Speci men Type: FLUID SPECIMEN Ordering Facility: [facility] Address: [address] [place] [address] Result Comment: Tech nical component, air saw operator screening performed at [facility], [address] [facility], [place] [id number] CLIA# [id number] Diagnostic interpretation performed at [facility], [address] [facility], [place] [id number] CLIA# [id number] Sociology Research Assistant: Raven Gresham M.D. Performed By: #### L [id number] #### [facility] CLIA [id number] [address] [place] [address] [place] [facility] CLIA [id number] [address] [place] [address] [place] HPV REFLEX HPV if Atypical Normal [facility] Comment on above: Order Comment: Speci men Type: FLUID SPECIMEN [facility]ing Facility: [facility] Address: [address] [place] [address] Performed By: #### L [id number] #### [facility] CLIA [id number] [address] [place] [address] [place] [facility] CLIA [id number] [address] [place] [address] [place] INTERPRETATION, CYTOLOGY, RAIL TRACK LAYER Normal [facility] Comment on above: Order Comment: Speci men Type: FLUID SPECIMEN [facility] Facility: [facility] Address: [address] [place] [address] Result Comment: Nega tive for intraepithelial lesion or malignancy. Performed By: #### L [id number] #### [facility] CLIA [id number] [address] [place] [address] [place] [facility] CLIA [id number] [address] [place] [address] [place] LMP 09/28/2023 Normal [facility] Comment on above: Order Comment: Speci men Type: FLUID SPECIMEN [facility]ing Facility: [facility] Address: [address] [place] [address] Performed By: #### L [id number] #### [facility] CLIA [id number] [address] [place] [address] STATES [facility] CLIA [id number] [address] [place] [address] STATES [facility] PAP DISCLAIMER COMMENT The Pap Smear is a screening test for cervical cancer. False negative results occur with all screening tests, emphasizing the need for rescreening at recommended intervals, and clinical correlation. Normal [facility] Comment on above: Order Comment: Speci men Type: FLUID SPECIMEN Ordering Facility: [facility] Address: [address] [place] [address] Performed By: #### L [id number] #### [facility] CLIA [id number] [address] [place] [address] STATES [facility] CLIA [id number] [address] [place] [address] [place] PAP [employer] COMMENT This specimen has been analyzed by the ThinPrep Imaging System, an automated imaging and review system, which assists the laboratory in evaluating cells on ThinPrep Pap tests. Following automated imaging, selected malhotra from every slide are reviewed by a air saw operator. Normal [facility] Comment on above: Order Comment: Speci men Type: FLUID SPECIMEN [facility] Facility[facility] Address: [address] [place] [address] Performed By: #### L [id number] #### [facility] [place] [id number] [address] [place] [address] STATES [facility] CLIA [id number] [address] [place] [address] [place] POC OTA ULTRASOUNDon 11-29-19 Indication Confirmation of intrauterine . Confirmation of cardiac activity Impression 1. Single, live, intrauterine . 2. An intrauterine gestational sac with a yolk sac and pole are present. 3. [place] rump length measurement is consistent with the established gestational age. 4. heart tones are within normal limits. Recommendations Follow up as clinically indicated. Method Transvaginal ultrasound examination. View: Adequate visualization Delacruz . Number of embryos: 1 Dating LMP on: 09/28/2023 GA by LMP 8 w + 6 d SALMA by LMP: 07/04/2024 Ultrasound examination on: 11/29/2023 GA by U/S based upon: CRL GA by U/S 8 w + 4 d SALMA by U/S: 07/06/2024 Assigned: based on the LMP, selected on 11/29/2023 Assigned GA 8 w + 6 d Assigned SALMA: 07/04/2024 Biometry Standard FHR 165 bpm CRL 19.8 mm 8w 4d 25% Hadlock Assessment Gestational sac: visualized Location: intrauterine Yolk sac: visualized Embryo: visualized CRL 19.8 mm 8w 4d 25% Hadlock Cardiac activity: present FHR 165 bpm General Evaluation Cardiac activity present. FHR 165 bpm Performed By: Ivania Esquivel CNP Read By: Ivania Esquivel CNP MATERNAL MEDICINE [facility] Radiology Study observation (narrative) [facility] Dora 11-22-2023 DANIS Telephone (OBGYWM) MITALI ANN ([id number]) 4 F Date Time Provider Department 11/22/23 IVANIA ESQUIVEL During your visit today, we recorded the following information about you: Maria D Oh RN 11/22/2023 9:39 AM Addendum Left message for patient to return phone call to complete nurse intake questions for her upcoming appointment. Patient has an appointment with Ivania Esquivel for NOB appointment. She is new to clinic-please triage if she is transferring care or had previous deliveries elsewhere. I will be here most of today or you can transfer her to Enriqueta Bee RN 11/29/2023 8:22 AM Signed Patient here for NOB now. Enriqueta Hoang RN Allergies As of Date: 11/22/2023 (Not on File) Date Reviewed: Never Reviewed Reason for Visit: 11/28 NOB Intake Questions [Other] Problem List As Of Date: 11/22/2023 (None) Encounter Status:Closed by ENRIQUETA HOANG on 11/29/23 Normal [facility] Progress Noteon 11-29-2021 Director Hedis Authentication Interface Message Text Maternal Medicine Consult Date of Service: 11/29/2021 Referring Provider: Jimmie Rangel Primary Care Provider: Jackelin Primary CareMd MD Reason for Consult: Dr. Jimmie Rangel requests that Mitali be evaluated due to suspected FGR. History of Presenting Problem. Mitali is a 21 y.o. at 29w2d gestation who presents for evaluation of suspected FGR. I reviewed the ultrasound and discussed what FGR is and what it could mean to a if present. growth restriction is used to describe fetuses with an EFWt or AC <10th percentile for gestational age. The etiology of growth restriction can be broadly categorized into maternal, , and placental. Maternal medical conditions include pregestational diabetes mellitus, renal insufficiency, autoimmune disease, cyanotic cardiac disease, -related hypertensive diseases, antiphospholipid antibody syndrome. Other causes include AODA and smoking, multiple gestation, teratogen exposure, infection, genetic and structural disorders, placental disorders and umbilical cord abnormalities. growth restriction increases the risks of intrauterine demise, morbidity, and . Also it appears these fetuses are predisposed to the development of cognitive delay in childhood and diseases in adulthood (obesity, type 2 DM, CAD, stroke) growth restriction is associated with a significantly increased risk of stillbirth, with the most severely affected fetuses being at greatest risk. If the fetus meets US criteria for FGR, RENEE/BPP and Doppler blood flow studies of the umbilical artery are recommended. is reduced by a third when UA Doppler S/D ratio is used as assessment. AEDF or REDF indicate an increased risk for morbidity and mortality. Serial testing is recommended. FGR alone may be associated with aneuploidy but risk is increased if structural abnormalities also are present. Also FGR detected earlier in gestation (<32 weeks') or combined with polyhydramnios is more commonly associated with aneuploidy. Genetic counseling and genetic screening/testing should be offered. Most growth-restricted fetuses can be adequately evaluated with serial ultrasonography every 3-4 weeks; ultrasound assessment of growth should not be performed more frequently than every 2 weeks because the inherent error associated with ultrasonographic measurements can preclude an accurate assessment of interval growth. Optimal delivery timing has not been well determined, but the 2020 [facility] Consult Series, Diagnosis and Management of Growth Restriction suggests the following:. For EFWt between the 3rd and 10th percentile and normal umbilical artery Doppler, delivery is suggested at 38 0/7 and 39 0/7 weeks of gestation. In cases of isolated growth restriction with an estimated weight less than the third percentile, delivery is recommended at 37 0/7 weeks of gestation or at diagnosis if diagnosed earlier. Earlier delivery is indicated in cases of absent or reverse umbilical artery flow. When delivery for FGR is anticipated before 34 weeks', delivery should be planned at a center with a NICU and, ideally, consultation with a maternal- specialist. corticosteroids are recommended for delivery anticipated <34 weeks' because they are associated with improved outcomes. They are also recommended for anticipated delivery from 34 0/7 to 36 6/7 weeks' if at risk of delivery within 7 days and who have not received a previous course of corticosteroids. For cases <32 weeks', magnesium sulfate should be considered for and neuroprotection. Serial growth is recommended. We did not have a copy of genetic screening; if available please send. Since US showed normal growth, no other testing is currently recommended. OB History Para Term AB Living 1 0 0 0 0 0 SAB IAB Ectopic Multiple Live Births 0 0 0 0 0 # Outcome Date GA Lbr Patrick/2nd Weight Sex Delivery Anes PTL Lv 1 Current Past Medical History: Diagnosis Date Anxiety Depression UTI (urinary tract infection) Past Surgical History: Procedure Laterality Date TYMPANOSTOMY TUBE PLACEMENT WISDOM TOOTH EXTRACTION Bilateral No Known Allergies Social History Socioeconomic History Marital status: Single Spouse name: None Number of children: None Years of education: None Highest education level: None Tobacco Use Smoking status: Never Smokeless tobacco: Never Substance and Sexual Activity Alcohol use: Never Drug use: Never Infections Live with someone with or exposed to TB No History of STI's Rash or viral illness since last menstruation No 2nd STI GBS 3rd STI Hx of Chicken Pox Yes Other infections Partner has hx of genital herpes No Genetics Age is > than 35y as of estimated date No [place]asse (more content not included)... Normal [facility] BB COMMENTon 07-13-2021 BB COMMENT Normal [facility] Comment on above: Result Comment: The Steve plasma contains an unidentifiable antibody reacting weak to 1+ at the anti-human globulin (AHG) phase of testing in gel. The antibody did not react with any of the 15 reagent red cells at the AHG phase when tested with PEG enhancement media. All clinically significant antibodies were excluded by testing patient plasma against reagent red cells of known antigenicity in PEG. TRANSFUSION: Units prepared for transfusion will be crossmatch compatible in PEG at the AHG phase of testing. Please allow additional time for crossmatching. Reviewed by Saniya Garay MLS([facility])SBB on July 13, 2021. ABIJassi 07-11-2021 ABIEmre UNABLE TO DETERMINE ANTIBODY Normal [facility] Comment on above: Order Comment: Campu s: M Is This Patient Going To Surgery? N Result Comment: 07/02 0914: ABID previously reported as: ANTI-E ABSCRon 07-11-[address] [facility] Comment on above: Order Comment: Campu s: M Is This Patient Going To Surgery? N ANTIGEN TYPINGon 07-11-[address] [facility] Comment on above: Order Comment: Campu s: M Is This Patient Going To Surgery? N BMPon 07-10-2021 Anion gap [Moles/Vol] 7 mmol/L Normal 5-16 [facility] Comment on above: Order Comment: Campu s: M Performed By: #### L 500.47513, L500.91335 #### [facility] [address] [place] [address] Calcium [Mass/Vol] 10.3 mg/dL Normal 8.5-10.5 [facility] Comment on above: Order Comment: Campu s: M Result Comment: NOTE NEW NORMAL RANGE DUE TO REAGENT CHANGE Performed By: #### L 500.27514, L500.40645 #### [facility] [place] [address] Chloride [Moles/Vol] 103 mmol/L Normal 98-107 [facility] Comment on above: Order Comment: Campu s: M Performed By: #### L 500.68677, L500.87819 #### [facility] [address] [place] [address] CO2 [Moles/Vol] 27.0 mmol/L Normal 21-32 [facility] Comment on above: Order Comment: Campu s: M Performed By: #### L 500.77391, L5.97363 #### [facility] [address] [place] [address] Creatinine [Mass/Vol] 0.52 mg/dL Normal 0.510-0.950 [facility] Comment on above: Order Comment: Nathanielu s: M Result Comment: Aviva ents receiving either N-Acetylcysteine (NAC) or Metamizole prior to venipuncture, may have falsely depressed results. Performed By: #### L 500.84939, L5.89877 #### [facility] [address] [place] [address] Glucose [Mass/Vol] 89 mg/dL Normal 70-100 [facility] Comment on above: Order Comment: Nathanielu s: M Result Comment: 70-1 00- Normal Fasting; 100-125 Impaired Fasting; greater than 126 on more than one result- Diabetes. ADA guidelines. Results may be falsely elevated after the administration of Sulfapyridine. Results may be falsely depressed after the administration of Sulfasalazine. Performed By: #### L 500.62010, L5.22657 #### [facility] [address] [place] [address] Potassium [Moles/Vol] 3.7 mmol/L Normal 3.5-5.1 [facility] Comment on above: Order Comment: Nathanielu s: M Result Comment: Slig ht Hemolysis, Result may be affected. Performed By: #### L 500.20507, L500.78490 #### [facility] [address] [place] [address] Sodium [Moles/Vol] 137 mmol/L Normal 136-145 [facility] Comment on above: Order Comment: Campu s: M Performed By: #### L 500.23142, L500.00749 #### [facility] [address] [place] [address] Urea nitrogen [Mass/Vol] 7 mg/dL Normal 7-26 [facility] Comment on above: Order Comment: Campu s: M Performed By: #### L 500.88553, L500.46133 #### [facility] [address] [place] [address] Urea nitrogen/Creatinine [Mass ratio] 13 mg/mg Low 15-24 [facility] Comment on above: Order Comment: Campu s: M Performed By: #### L 500.46187, L500.05079 #### [facility] [address] [place] [address] CBC W/DIFFon 07-10-2021 BASO ABS 0.00 K/CU MM Normal 0-0.2 [facility] Comment on above: Order Comment: Campu s: M Performed By: #### L 200.53679 #### [facility] [address] [place] [address] Basophils/100 WBC (Bld) 0.5 % Normal 0-2 [facility] Comment on above: Order Comment: Campu s: M Performed By: #### L 200.52121 #### [facility] [address] [place] [address] EOS ABS 0.10 K/CU MM Normal 0-0.5 [facility] Comment on above: Order Comment: Campu s: M Performed By: #### L 200.82808 #### [facility] [address] [place] [address] Eosinophils/100 WBC (Bld) 1.3 % Normal 0-5 [facility] Comment on above: Order Comment: Campu s: M Performed By: #### L 200.33311 #### [facility] [address] [place] [address] Erythrocyte distribution width (RBC) [Ratio] 13.2 % Normal 11-14.5 [facility] Comment on above: Order Comment: Campu s: M Performed By: #### L 200.81002 #### [facility] [address] [place] [address] Hematocrit (Bld) [Volume fraction] 42.6 % Normal 35.0-47.0 [facility] Comment on above: Order Comment: Campu s: M Performed By: #### L 200.63267 #### [facility] [address] [place] [address] Hemoglobin (Bld) [Mass/Vol] 13.6 g/dL Normal 11.5-15.5 [facility] Comment on above: Order Comment: Campu s: M Performed By: #### L 200.60340 #### [facility] [address] [place] [address] IMMATR GRAN ABS 0.00 K/CU MM Normal Less than 2 [facility] Comment on above: Order Comment: Campu s: M Performed By: #### L 200.94561 #### [facility] [address] [place] [address] IMMATURE GRAN % 0.2 % Normal Less than 2 [facility] Comment on above: Order Comment: Campu s: M Performed By: #### L 200.09246 #### [facility] [address] [place] [address] LYMPH ABS 2.40 K/CU MM Normal 0.9-4.4 [facility] Comment on above: Order Comment: Campu s: M Performed By: #### L 200.44302 #### [facility] [address] [place] [address] Lymphocytes/100 WBC (Bld) 29.3 % Normal 20-40 [facility] Comment on above: Order Comment: Campu s: M Performed By: #### L 200.43653 #### [facility] [address] [place] [address] MCHC (RBC) [Mass/Vol] 31.9 g/dL Low 32.0-36.0 [facility] Comment on above: Order Comment: Campu s: M Performed By: #### L 200.80315 #### [facility] [address] [place] [address] MCV (RBC) [Entitic vol] 92.4 fL Normal 80.0-99.0 [facility] Comment on above: Order Comment: Campu s: M Performed By: #### L 200.15192 #### [facility] [address] [place] [address] MONO ABS 0.70 K/CU MM Normal 0.1-1.1 [facility] Comment on above: Order Comment: Campu s: M Performed By: #### L 200.59259 #### [facility] [address] [place] [address] Monocytes/100 WBC (Bld) 7.9 % Normal 2-10 [facility] Comment on above: Order Comment: Campu s: M Performed By: #### L 200.44366 #### [facility] [address] [place] [address] NEUTROPHIL ABS 5.00 K/CU MM Normal 2.0-8.3 [facility] Comment on above: Order Comment: Campu s: M Performed By: #### L 200.86177 #### [facility] [address] [place] [address] Neutrophils/100 WBC (Bld) 60.8 % Normal 45-75 [facility] Comment on above: Order Comment: Campu s: M Performed By: #### L 200.76420 #### [facility] [address] [place] [address] Nucleated RBC/100 WBC (Bld) [Ratio] 0.0 % Normal Less than 1 [facility] Comment on above: Order Comment: Campu s: M Performed By: #### L 200.62688 #### [facility] [address] [place], [place] [id number] Platelet mean volume (Bld) [Entitic vol] 11.1 fL Normal 9.4-12.4 [facility] Comment on above: Order Comment: Campu s: M Performed By: #### L 200.86673 #### [facility] [address] [place] [address] PLT 269 K/CU MM Normal 150-450 [facility] Comment on above: Order Comment: Campu s: M Performed By: #### L 200.42058 #### [facility] [address] [place] [address] RBC 4.61 M/CU MM Normal 3.90-5.30 [facility] Comment on above: Order Comment: Campu s: M Performed By: #### L 200.87085 #### [facility] [address] [place] [address] WBC 8.3 K/CUMM Normal 4.5-11.0 [facility] Comment on above: Order Comment: Campu s: M Performed By: #### L 200.25231 #### [facility] [address] [place] [address] Deuce 07-10-2021 EMERGENCY PHYSICIAN REPORT This is a preliminary report only, as the practitioner review and authentication has not occurred. Normal [facility] ER PHYSICIAN ASSESSMENT RECORDS : FlexChartData Event Time: 07/10/2021 01:00 Status: Signed [facility] Mitali Ann [[id number]] Attending Physician 2002 Chart (V2b) Chart created at 07/10/2021 00:56 by Madhav Dominguez Chart closed at 07/10/2021 02:58 Entry in Emergency Department at 07/09/2021 22:14 Patient Name: Mitali Ann Record Number: [id number] Date: 07/10/2021 00:56 Entered Department at: 07/09/2021 22:14 Patient Seen at: 07/09/2021 23:07 Historian: Patient PCP: *None,. Chief Complaint:NAUSEA AND VOMITING X1 WEEK. PT STATES IT HAS GOTTEN WORSE TODAY. PT STATES SHE IS . PT DOES NOT KNOW HOW FAR ALONG SHE IS. PT C/O AMDOMINAL CRAMPING. PT DENIES VAGINAL BLEEDING Triage Note reviewed and Initial Vital Signs reviewed. Temperature: 98.4 F (36.9 C). Pulse: 89. Respiratory Rate: 16. Blood-pressure: 109/57. Oxygen Saturation: 100%. History of Present Illness: Patient is a 21-year-old female who is new to the area and not yet established outpatient care who presents with concerns of about 1 day of diffuse lower abdominal cramping, nausea and vomiting in . She estimates that by dates she is approximately 8 weeks . She denies any associated [facility] PATIENT NAME: MITALI ANN [address] [facility] [address] MED[facility] REC #: [id number] [place] [address] EMERGENCY DEPARTMENT REPORT EMERGENCY DEPARTMENT PHYSICIAN vaginal bleeding, no dysuria or hematuria. She states that the abdominal cramping comes and goes intermittently. She denies any associated fevers or chills, no cough, no chest pain or shortness of breath or other systemic symptoms. HPI Elements: Onset: 1 Weeks ago; Timing: Intermittent; Quality: Cramping and Dull; Severity: maximum Mild, now Mild; Exacerbated by: Nothing; Alleviated by: Nothing Review of Systems. GI: positive for Abd. Pain, Nausea and Vomiting All other systems reviewed and negative.. Past History, Medications, Allergies, Social History and Family History reviewed in nurses note. Medications: Reviewed RN Note. SEROQUEL 50MG TABLET - PO Allergies: Reviewed RN Note No Known Allergies Social History: Reviewed RN Note. Family History: Reviewed RN Note Physical Examination: General: Alert and Well Developed HEENT: Normal ENT inspection. Eyes: Lids Normal; . Oropharynx / Throat: Normal Pharynx. Neck: No Lymphadenopathy, No Meningismus and Supple Respiratory: No Resp Distress and Normal Breath Sounds Cardio-Vascular: No murmur, No rub and RRR Abdomen: Non-tender and Soft Back: No CVA tenderness, No Midline Tenderness and Non-tender Extremity: No edema Neurological: Alert, Oriented X3 and No Gross Weakness Skin: No rash, No Petechiae, Warm and Dry Psychological: Mood/Affect Normal and Normal Memory/Judgment CBC W/DIFF, information as of 07/09/2021, 11:49 pm 92.4 / 13.6 / [facility] PATIENT NAME: MITALI ANN [address] [facility] [address] MEDICAL REC #: [id number] [place] [address] EMERGENCY DEPARTMENT REPORT EMERGENCY DEPARTMENT PHYSICIAN 8.3 andgt;------andlt; 269 / 42.6 / N:60.8 BASO ABS: 0.00 K/Cu Mm; BASOPHIL %: 0.5 %; EOS ABS: 0.10 K/Cu Mm; EOSINOPHIL %: 1.3 %; IMMATR GRAN ABS: 0.00 K/Cu Mm; IMMATURE GRAN %: 0.2 %; LYMPH %: 29.3 %; LYMPH ABS: 2.40 K/Cu Mm; MCHC: 31.9 Gm/Dl; MONO ABS: 0.70 K/Cu Mm; MONOCYTE %: 7.9 %; MPV: 11.1; NEUTROPHIL ABS: 5.00 K/Cu Mm; NRBC: 0.0 %; RBC: 4.61 M/Cu Mm; RDW: 13.2 BMP, information as of 07/09/2021, 11:49 pm 137 --------+--------+-- ------andlt; 89 Anion Gap = 7 3.7 BUN/CREA: 13; CALCIUM TOTAL: 10.3 Mg/Dl UA COMPLETE, information as of 07/09/2021, 11:18 pm + +-------- -+---------+-------- -+---------+-------- + + +-------- -+---------+-------- -+---------+-------- + + +-------- -+---------+-------- -+---------+-------- + + +-------- -+---------+-------- -+---------+-------- + + +-------- -+---------+-------- -+---------+-------- + HCGQ, information as of 07/09/2021, 11:18 pm HCGQ: 806504.6 Miu/Ml Imaging Study Obtained: TRANSVAGINAL US [facility] PATIENT NAME: MITALI ANN [address] [facility] [address] [place] MEDICAL REC #: [id number] [place] [address] EMERGENCY DEPARTMENT REPORT EMERGENCY DEPARTMENT PHYSICIAN Imaging Study Obtained: AGE 1ST TRIMESTER Imaging Study Obtained: AGE 1st TRIMESTER, Status:Signed Report Available EXAMINATION: FIRST TRIMESTER TRANSABDOMINAL PELVIC ULTRASOUND CLINICAL HISTORY: Lower abdominal pain. TECHNIQUE: Sonogra (more content not included)... Normal [facility] AGE 1st TRIMESTERon AGE 1st TRIMESTER EXAMINATION: FIRST TRIMESTER TRANSABDOMINAL PELVIC ULTRASOUND CLINICAL HISTORY: Lower abdominal pain. TECHNIQUE: Sonography of the pelvis was performed by transabdominal technique. Images were obtained and stored in a permanent archive. MQ: [id number] COMPARISON: None. RESULT: Uterus: - Orientation: Anteverted. - Size: 10.4 x 5.7 x 6.0 cm - Myometrium: Homogeneous echogenicity. Gestation: - Intrauterine gestational sac: Single present. - Mean Sac Diameter: 3.14 cm, corresponding gestational age 8 weeks, 2 days. - Yolk sac: Present. - Embryo: Single present. - [place] rump length: 1.85 cm, corresponding gestational age 8 weeks, 3 days. - Gestational heart rate: Present measuring 167 bpm - Subgestational hematoma: Hypoechoic areas adjacent to the gestational sac measuring 1.8 x 1.7 x 1.8 cm and 0.8 x 1.0 x 1.9 cm may represent small bleeds. Right ovary: - Size: 2.9 x 1.8 x 2.1 cm - Normal sonographic appearance with physiologic follicles. Left ovary: - Size: 3.5 x 1.6 x 1.7 cm - Normal sonographic appearance with physiologic follicles. Pelvis free fluid: None. IMPRESSION: Single, live intrauterine gestation. Estimated Gestational Age: 8 weeks, 3 days by crown rump length. Suggestion of small subgestational bleeds as above. This report was electronically signed by Tea Palmer MD 07/10/2021 2:25 AM Reported By: TEA PALMER MD Signed By: TEA PALMER MD Normal [facility] [place] GFR ESTon 07-10-2021 IF AMER Greater than 60 Normal [facility] Comment on above: Order Comment: Campu s: M Performed By: #### L 500.16701, L500.00111 #### [facility] [address] [place], [place] [id number] IF non-AFR AMER Greater than 60 Normal [facility] Comment on above: Order Comment: Campu s: M Performed By: #### L 500.43152, L500.33701 #### [facility] [address] [place], [place] [address] HCGQon 07-10-2021 HCGQ 086531.6 MIU/ML Normal less than 3 [facility] Comment on above: Order Comment: Campu s: M Result Comment: TRANG CHAN COMMENTS Less than 5 mIU/ML NEGATIVE FOR 5-25 mIU/ML BORDERLINE; RETEST IN 48 HOURS, IF INDICATED Greater than 25 mIU/ML POSITIVE FOR WEEKS POST LMP RANGE IN mIU/ML* 3-4 9-130 4-5 75-2600 5-6 [id number] 6-7 [id number] 7-12 [id number] 12-16 [id number] 16-29 [phone] 29-41 [phone] *These ranges are from published literature and may not be appropriate for all cases. When HCG levels are above 4000 mIU/ML, distinction between normal and abnormal is poor. The rate of change (doubling time) may be helpful. (Reference: NCC ) Performed By: #### L 550.55131 #### [facility] [address] [place] [address] PATIENT RETYPEon 07-10-2021 RETYPE INTERP Positive Normal [facility] Comment on above: Order Comment: Campu s: M Is This Patient Going To Surgery? N TSon 07-10-2021 ABO and Rh group Nom (Bld) Blood group A Rh(D) positive Normal [facility] Comment on above: Order Comment: Campu s: M Is This Patient Going To Surgery? N UA COMPLETEon 07-10-2021 Color (U) Straw Normal [facility] Comment on above: Order Comment: Campu s: M Performed By: #### L 600.42605 #### [facility] [address] [place] [address] Glucose (U) [Mass/Vol] Negative Normal NORMAL [facility] Comment on above: Order Comment: Campu s: M Performed By: #### L 600.78724 #### [facility] [place] [id number] UA APPEARANCE Clear Normal CLEAR [facility] Comment on above: Order Comment: Campu s: M Performed By: #### L 600.20452 #### [facility] [address] [place] [address] UA BILIRUBIN Negative Normal NEGATIVE [facility] Comment on above: Order Comment: Campu s: M Performed By: #### L 600.93313 #### [facility] [address] [place] [address] UA BLOOD Negative Normal NEGATIVE [facility] Comment on above: Order Comment: Campu s: M Performed By: #### L 600.04801 #### [facility] [address] [place] [address] UA KETONE Negative Normal NEGATIVE [facility] Comment on above: Order Comment: Campu s: M Performed By: #### L 600.92739 #### [facility] [address] [place] [address] UA LK ESTERASE Negative Normal NEGATIVE [facility] Comment on above: Order Comment: Campu s: M Performed By: #### L 600.93495 #### [facility] [place] [id number] UA NITRITE Negative Normal NEGATIVE [facility] Comment on above: Order Comment: Campu s: M Performed By: #### L 600.50970 #### [facility] [address] [place], [place] [address] UA PH 8.0 Normal 5-6 [facility] Comment on above: Order Comment: Campu s: M Performed By: #### L 600.89114 #### [facility] [address] [place] [address] UA PROTEIN Negative Normal NEGATIVE [facility] Comment on above: Order Comment: Campu s: M Performed By: #### L 600.38066 #### [facility] [address] [place] [address] UA SPEC GRAV 1.004 Normal 1.005-1.030 [facility] Comment on above: Order Comment: Campu s: M Performed By: #### L 600.88154 #### [facility] [address] [place], [place] [address] UA UROBILINOGEN Negative Normal NORMAL [facility] Comment on above: Order Comment: Campu s: M Performed By: #### L 600.07595 #### [facility] [address] [place] [address] Vital Signs Date Time Vital Sign Value Performing Clinician Facility 04-23-2024 14:35-0400 Diastolic Blood Pressure Non-Invasive 70 mm[Hg] PACO MANCILLA MD [facility] 04-23-2024 14:35-0400 Heart rate 94 /min PACO MANCILLA MD [facility] 04-23-2024 14:35-0400 Systolic Blood Pressure Non-Invasive 101 mm[Hg] PACO MANCILLA MD [facility] 04-23-2024 14:15-0400 Diastolic Blood Pressure Non-Invasive 57 mm[Hg] PACO MANCILLA MD [facility] 04-23-2024 14:15-0400 Heart rate 96 /min PACO MANCILLA MD [facility] 04-23-2024 14:15-0400 Systolic Blood Pressure Non-Invasive 110 mm[Hg] PACO MANCILLA MD [facility] 04-23-2024 14:01-0400 Body temperature 98.06 [degF] PACO MANCILLA MD [facility] 04-23-2024 14:01-0400 Diastolic Blood Pressure Non-Invasive 70 mm[Hg] PACO MANCILLA MD [facility] 04-23-2024 14:01-0400 Heart rate 97 /min PACO MANCILLA MD [facility] 04-23-2024 14:01-0400 Reason For Taking VItal Signs PACO MANCILLA MD [facility] 04-23-2024 14:01-0400 Respiratory rate 18 /min PACO MANCILLA MD [facility] 04-23-2024 14:01-0400 Systolic Blood Pressure Non-Invasive 120 mm[Hg] PACO MANCILLA MD [facility] 04-20-2024 13:28-0400 Body mass index (BMI) [Ratio] 32.14 kg/m2 Riri Eaton APRN.CNP Work Phone: [facility] 04-20-2024 13:28-0400 Body temperature 98.2 [degF] Riri Eaton [employer] Work Phone: [facility] 04-20-2024 13:28-0400 Body weight 87.6 kg Riri Eaton [employer] Work Phone: [facility] 04-20-2024 13:28-0400 Diastolic blood pressure 71 mm[Hg] Riri Eaton [employer] Work Phone: [facility] 04-20-2024 13:28-0400 Heart rate 92 /min Riri Eaton [employer] Work Phone: [facility] 04-20-2024 13:28-0400 Respiratory rate 18 /min Riri Eaton [employer] Work Phone: [facility] 04-20-2024 13:28-0400 SaO2% (BldA) [Mass fraction] 99 % Riri Eaton [employer] Work Phone: [facility] 04-20-2024 13:28-0400 Systolic blood pressure 111 mm[Hg] Riri Eaton [employer] Work Phone: [facility] 04-07-2024 11:10-0400 Body temperature 99.14 [degF] PACO MANCILLA MD [facility] 04-07-2024 11:10-0400 Diastolic Blood Pressure Non-Invasive 52 mm[Hg] PACO MANCILLA MD [facility] 04-07-2024 11:10-0400 Heart rate 85 /min PACO MANCILLA MD [facility] 04-07-2024 11:10-0400 Reason For Taking VItal Signs PACO MANCILLA MD [facility] 04-07-2024 11:10-0400 Respiratory rate 16 /min PACO MANCILLA MD [facility] 04-07-2024 11:10-0400 Systolic Blood Pressure Non-Invasive 96 mm[Hg] PACO MANCILLA MD [facility] 04-07-2024 09:30-0400 Diastolic Blood Pressure Non-Invasive 43 mm[Hg] PACO MANCILLA MD [facility] 04-07-2024 09:30-0400 Heart rate 100 /min PACO MANCILLA MD [facility] 04-07-2024 09:30-0400 Reason For Taking VItal Signs PACO MANCILLA MD [facility] 04-07-2024 09:30-0400 Respiratory rate 16 /min PACO MANCILLA MD [facility] 04-07-2024 09:30-0400 Systolic Blood Pressure Non-Invasive 106 mm[Hg] PACO MANCILLA MD [facility] 04-07-2024 08:54-0400 Body temperature 98.78 [degF] PACO MANCILLA MD [facility] 04-07-2024 08:54-0400 Diastolic Blood Pressure Non-Invasive 62 mm[Hg] PACO MANCILLA MD [facility] 04-07-2024 08:54-0400 Heart rate 104 /min PACO MANCILLA MD [facility] 04-07-2024 08:54-0400 Reason For Taking VItal Signs PACO MANCILLA MD [facility] 04-07-2024 08:54-0400 Respiratory rate 16 /min PACO MANCILLA MD [facility] 04-07-2024 08:54-0400 Systolic Blood Pressure Non-Invasive 135 mm[Hg] PACO MANCILLA MD [facility] 04-07-2024 08:47-0400 Body height 65 cm PACO MANCILLA MD [facility] 04-07-2024 08:47-0400 Body weight 86.6 kg PACO MANCILLA MD [facility] 04-07-2024 08:47-0400 Body weight 204.97 kg/m2 PACO MANCILLA MD [facility] 01-21-2024 10:27-0400 Body mass index (BMI) [Ratio] 28.96 kg/m2 David Edwards MD Work Phone: [facility] 01-21-2024 10:27-0400 Body weight 78.93 kg David Edwards MD Work Phone: [facility] 01-21-2024 10:27-0400 Diastolic blood pressure 62 mm[Hg] David Edwards MD Work Phone: [facility] 01-21-2024 10:27-0400 Systolic blood pressure 106 mm[Hg] David Edwards MD Work Phone: [facility] 11-29-2023 08:22-0400 Body height 165.1 cm Ivania Teressa [employer] Work Phone: [facility] 11-29-2023 08:22-0400 Body mass index (BMI) [Ratio] 28.06 kg/m2 Ivania [place] [employer] Work Phone: [facility] 11-29-2023 08:22-0400 Body weight 76.48 kg Ivania Teressa [employer] Work Phone: [facility] 11-29-2023 08:22-0400 Diastolic blood pressure 58 mm[Hg] Ivania [place] [employer] Work Phone: [facility] 11-29-2023 08:22-0400 Systolic blood pressure 90 mm[Hg] Ivania [place] [employer] Work Phone: [facility] Encounters Encounter Date Encounter Type Care Provider Facility Start: 04-23-2024 End: 04-23-2024 ambulatory PACO MANCILLA MD Facility:[facility] Start: 04-23-2024 End: 04-23-2024 SAME DAY STAY PACO MANCILLA MD [facility] Start: 04-21-2024 End: 04-21-2024 ambulatory [facility] Facility:[facility] Start: 04-21-2024 End: 04-21-2024 Subsequent hospital visit by physician [facility] Work Phone: Radiology Comment on above: Subacute cough [R05. 2] Start: 04-20-2024 End: 04-20-2024 ambulatory IVANIA TERESSA Facility:[facility] Start: 04-20-2024 End: 04-20-2024 Patient encounter procedure Riri Eaton [employer] Work Phone: [facility] Comment on above: Subacute cough (Prim marbella Dx); Sore throat; Sinus pressure Start: 04-15-2024 End: 04-19-2024 ambulatory NOT RECORDED PHYSICIAN Facility:[facility] Start: 04-15-2024 End: 04-19-2024 Outreach Lab JUAN RODRIGUEZ MD [facility] Start: 04-07-2024 End: 04-07-2024 ambulatory PACO MANCILLA MD Facility:[facility] Start: 04-07-2024 End: 04-07-2024 Evaluation and management of inpatient PACO MANCILLA MD [facility] Start: 03-04-2024 End: 03-04-2024 ambulatory NOT RECORDED PHYSICIAN Facility:[facility] Start: 03-04-2024 End: 03-04-2024 Patient encounter procedure JUAN RODRIGUEZ MD [facility] Start: 02-14-2024 End: 02-14-2024 ambulatory JUAN RODRIGUEZ Facility:[facility] Start: 02-06-2024 End: 02-10-2024 ambulatory JUAN RODRIGUEZ Facility:[facility] Start: 02-06-2024 End: 02-10-2024 Outreach Lab JUAN RODRIGUEZ MD [facility] Start: 01-21-2024 End: 01-21-2024 ambulatory [facility] Facility:[facility] Start: 01-21-2024 End: 01-21-2024 Patient encounter procedure David Edwards MD Work Phone: OB/Gynecology Comment on above: 16 weeks gestation o f (Primary Dx); Encounter for supervision of other normal in second trimester Start: 11-29-2023 End: 11-29-2023 ambulatory [facility] Facility:[facility] Start: 11-29-2023 End: 11-29-2023 Patient encounter [facility] FURNITURE FINISHER.BELT CHANGER Work Phone: OB/Gynecology Comment on above: with uncer tain dates in first trimester (Primary Dx); Encounter for supervision of other normal in first trimester; 8 weeks gestation of Start: 11-22-2023 Telephone encounter [facility] FURNITURE FINISHER.BELT CHANGER Work Phone: OB/Gynecology Comment on above: 11/28 NOB Intake Ques tions Start: 07-10-2021 End: 07-10-2021 Subsequent hospital visit by physician IF LEAH CHRISTIANSON Comment on above: NAUSEA AND VOMITING/ TRIAGE Start: 07-09-2021 End: 07-10-2021 Subsequent hospital visit by physician IF LEAH CHRISTIANSON Comment on above: NAUSEA AND VOMITING/ TRIAGE Procedures Date Procedure Procedure Detail Performing Clinician Start: 04-21-2024 Radiologic exam ches t 2 views Riri Eaton FURNITURE FINISHER.BELT CHANGER Work Phone: Start: 04-20-2024 STREP A MOLECULAR (POC) [facility] Provider Start: 11-29-2023 Us uterus limited 1/> fetuses Ivania Esquivel [facility] Work Phone: Start: 07-10-2021 Antibody screen Comment on above: Order Comment: Gary s: M Is This Patient Going To Surgery? N Plan of Treatment Date Care Activity Detail Author Start: 04-15-2034 Urine microalbumin profile DTaP,Tdap,Td Vaccine (3 - Td or Tdap) [facility] Start: 02-05-2032 Urine microalbumin profile DTaP,Tdap,Td Vaccine (2 - Td or Tdap) [facility] Start: 11-28-2026 Screening for malign ant neoplasm of cervix Cervical Cancer Screening [facility] Start: 11-28-2024 GC (Gonorrhea) Screening () GC (Gonorrhea) Screening () [facility] Start: 11-28-2024 Screening for Chlamy elkin trachomatis Chlamydia Screening () [facility] Start: 05-09-2024 RSV Vaccine (1 - Ris k 1-dose series) RSV Vaccine (1 - Risk 1-dose series) [facility] Start: 03-02-2024 Covid-19 Vaccine ( season) Covid-19 Vaccine ( season) [facility] Start: 03-02-2024 Influenza vaccination [facility] Start: 02-18-2024 End: 02-18-2024 Patient encounter procedure OB/Gynecology Comment on above: Anatomy Anatomy/OB/AFP Start: 01-21-2024 End: 01-20-2025 OBSTETRIC ULTRASOUND WHI OBSTETRIC ULTRASOUND WHI Anc Imaging Routine 16 weeks gestation of Expected: 01/21/2024, Expires: 01/20/2025 [facility] Work Phone: Comment on above: Expected: 01/21/2024 , Expires: 01/20/2025 Start: 12-27-2023 End: 12-27-2023 Patient encounter procedure 12/27/2023 10:20 AM EDT Routine Office Visit OB/Gynecology [address] [place], [place] [id number] David Edwards MD [address] [place] [address] New ob LMP 09/28/2023 OB/Gynecology Comment on above: New ob LMP 09/28/2023 Start: 11-29-2023 End: 2024 CBC panel - Blood by Automated count COMPLETE BLOOD COUNT Lab Routine Encounter for supervision of other normal in first trimester 8 weeks gestation of Expected: 11/29/2023, Expires: 2024 [facility] Work Phone: Comment on above: Expected: 11/29/2023 , Expires: 2024 Start: 11-29-2023 End: 2024 Chromosome 21 trisomy [Presence] in Blood or Tissue by Cytogenetics [id number] PLUS Lab Routine Encounter for supervision of other normal in first trimester Expected: 11/29/2023, Expires: 2024 [facility] Comment on above: Expected: 11/29/2023 , Expires: 2024 Start: 11-29-2023 End: 2024 Hemoglobin A1c in Blood HEMOGLOBIN A1C Lab Routine Encounter for supervision of other normal in first trimester 8 weeks gestation of Expected: 11/29/2023, Expires: 2024 [facility] Comment on above: Expected: 11/29/2023 , Expires: 2024 Start: 11-29-2023 End: 2024 Hepatitis B virus surface Ag [Presence] in Serum HEPATITIS B SURFACE ANTIGEN Lab Routine Encounter for supervision of other normal in first trimester 8 weeks gestation of Expected: 11/29/2023, Expires: 2024 [facility] Comment on above: Expected: 11/29/2023 , Expires: 2024 Start: 11-29-2023 End: 2024 Hepatitis C virus Ab [Presence] in Serum HEPATITIS C ANTIBODY IA WITH CONFIRMATION Lab Routine Encounter for supervision of other normal in first trimester 8 weeks gestation of Expected: 11/29/2023, Expires: 2024 [facility] Comment on above: Expected: 11/29/2023 , Expires: 2024 Start: 11-29-2023 End: 2024 HIV 1+2 Ab [Presence] in Serum or Plasma by Immunoassay HIV 1/2 COMBO WITH REFLEX TO DIFFERENTIATION Lab Routine Encounter for supervision of other normal in first trimester 8 weeks gestation of Expected: 11/29/2023, Expires: 2024 [facility] Comment on above: Expected: 11/29/2023 , Expires: 2024 Start: 11-29-2023 End: 2024 RUBELLA IGG ANTIBODY RUBELLA IGG ANTIBODY Lab Routine Encounter for supervision of other normal in first trimester 8 weeks gestation of Expected: 11/29/2023, Expires: 2024 [facility] Comment on above: Expected: 11/29/2023 , Expires: 2024 Start: 11-29-2023 End: 2024 SYPHILIS TOTAL W/REFLEX SYPHILIS TOTAL W/REFLEX Lab Routine Encounter for supervision of other normal in first trimester 8 weeks gestation of Expected: 11/29/2023, Expires: 2024 [facility] Comment on above: Expected: 11/29/2023 , Expires: 2024 Start: 11-29-2023 End: 2024 TYPE + SCREEN TYPE + SCREEN Blood Bank Routine Encounter for supervision of other normal in first trimester 8 weeks gestation of Expected: 11/29/2023, Expires: 2024 [facility] Comment on above: Expected: 11/29/2023 , Expires: 2024 Start: 07-02-2023 Behavioral Health Screening Behavioral Health Screening [facility] Start: 03-02-2023 Covid-19 Vaccine () Covid-19 Vaccine () [facility] Start: 2023 Screening for malign ant neoplasm of cervix Pap Testing [facility] Start: 2021 Hepatitis B Vaccine (1 of 3 - 19+ 3-dose series) Hepatitis B Vaccine (1 of 3 - 19+ 3-dose series) [facility] Start: 02-29-2020 Anxiety Screening Anxiety Screening [facility] Start: 02-29-2020 Depression Screening Depression Scre ening [facility] Start: 02-29-2020 GC (Gonorrhea) Screening (18-24) GC (Gonorrhea) Screening (18-24) [facility] Start: 02-29-2020 Hepatitis C screening Hepatitis C Sc reening [facility] Start: 02-29-2020 HIV screening HIV Screening [facility] Start: 02-29-2020 Screening for Chlamy elkin trachomatis Chlamydia Screening (18-24) [facility] Start: 2018 Meningococcal B Vaccine: Consider Based On Risk (1 of 2 - Patient Seeks Protection) Meningococcal B Vaccine: Consider Based On Risk (1 of 2 - Patient Seeks Protection) [facility] Start: 2017 HPV Vaccine (1 - 3-d ose series) HPV Vaccine (1 - 3-dose series) [facility] Start: 02-29-2016 Peds To Adult Transition Annual Assessment Peds To Adult Transition Annual Assessment [facility] Start: 2014 Peds To Adult Transition Initial Discussion Peds To Adult Transition Initial Discussion [facility] ALERE STREP A TEST (AG) ALERE ST REP A TEST (AG) Lab Routine Sore throat Ordered: 04/20/2024 [facility] Work Phone: Comment on above: Ordered: 04/20/2024 Bacteria identified in Urine by Culture URINE CULTURE Microbiology Routine Encounter for supervision of other normal in first trimester 8 weeks gestation of 11/29/2023 9:16 AM T [facility] Chlamydia trachomatis+Neisseria gonorrhoeae DNA [Presence] in Unspecified specimen by SKYLER with probe detection GONORRHEA/CHLAMYDIA NAAT Lab Routine Encounter for supervision of other normal in first trimester 8 weeks gestation of 11/29/2023 9:16 AM T [facility] PAP TEST PAP TEST Lab Rou tejas Encounter for supervision of other normal in first trimester 8 weeks gestation of 11/29/2023 9:16 AM T [facility] XR Chest PA and Lateral XR CHEST 2V FRONTAL/LAT Radiology STAT Subacute cough Ordered: 04/20/2024 [facility] Comment on above: Ordered: 04/20/2024 Immunizations Immunization Date Immunization Notes Care Provider Jabier whitehead 04-15-2024 tetanus toxoid, redu latonia diphtheria toxoid, and acellular pertussis vaccine, adsorbed; Translations: [Boostrix (Tdap)] JUAN RODRIGUEZ MD [facility] Comment on above: Result Comment: [facility]# [id number] 02-04-2022 influenza, injectabl e, quadrivalent, preservative free David Edwards MD Work Phone: [facility] Work Phone: 02-04-2022 tetanus toxoid, redu latonia diphtheria toxoid, and acellular pertussis vaccine, adsorbed David Edwards MD Work Phone: [facility] 02-04-2022 influenza virus vaccine, unspecified formulation Ivania Teressa KEITH Work Phone: [facility] Payers Date Payer Category Payer Medicaid [facility] [id number] 2023-Present [phone] [place] [address] Medicaid [id number] 2023 Unknown [id number] 2002 Unknown [id number] 2002 Unknown [id number] 2002 Unknown [id number] 2002 Unknown [id number] 2002 Unknown [id number] 2002 Unknown [id number] 2002 Unknown [id number] Social History Date Type Detail Facility Tobacco smoking status NHIS Tobacco smoking consumption unknown [facility] Start: 2002 Sex Assigned At Not on file [facility] Start: 11-29-2023 End: 04-20-2024 History of Social function [facility] Start: 11-29-2023 End: 04-20-2024 Tobacco use panel [facility] National Score (1-100), lower number is lower risk 60 [facility] Start: 11-29-2023 Tobacco smoking status NHIS Never smoked tobacco [facility] Start: 11-29-2023 Tobacco use and exposure Smokeless tobacco non-user [facility] Start: 11-29-2023 End: 04-20-2024 Alcohol intake Lifetime non-drinker (finding) [facility] Start: 11-29-2023 Education 13 [facility] Start: 11-29-2023 Tobacco Comment Pt vapes but s topped at 5 weeks [facility] Start: 10-12-2023 [facility] Start: 02-06-2024 Tobacco smoking status Ex-smoker (finding) [facility] Sex Assigned At Female [facility] NEGATED: Highlighted rowStart: NINF History of tobacco use Passive smoker [facility] Functional Status Date Assessment Result Facility 04-07-2024 Functional Status Activity Noe t[facility] Mental Status Date Assessment Result Facility 04-07-2024 Mental Status Orientation Oriented x 4 [facility] Clinical Notes 11-22-2023 to 04-21-2024 Deo Vu, RT(R) - 04/21/2024 10:50 AM Riri Jackson APRN.BELT CHANGER - 04/20/2024 1:30 PM EDTLaboratoryPrenatal Quick Notes - David Edwards MD - 01/21/2024 10:42 AM EDTPatient Instructions Note Date & Type Note Facility 04-21-2024 History of Presen t illness Narrative Radiology Service Progress Note PATIENT NAME: Mitali Ann DATE OF SERVICE: April 21, 2024 TIME: 10:48 AM PATIENT IDENTITY VERIFICATION COMPLETED USING TWO (2) IDENTIFIERS: Name and Date of confirmed by patient verbally. FALL SCREENING: Has the patient had 2 falls in the last year or 1 fall with injury or currently using an Ambulatory Assistive Device (Walker, Cane, Wheelchair, Crutches, etc.)? No PATIENT GENDER DATA: Female. status: : Yes. Radiologist notified: Patient and provider ok with imaging status: NO. PATIENT RELEVANT IMPLANT DATA REVIEWED: Yes PATIENT PRESENTS WITH AN IMPLANTABLE OR ATTACHED GOLD TOOLER: No RADIOLOGY DEPARTMENT: General X-ray: Exam(s) Completed: Chest X-Ray PERIPHERAL IV DATA: Not applicable SIGNED BY: RT Nathaniel(Saúl) April 21, 2024 10:48 AM documented in this encounter [facility] 04-21-2024 Note HNO ID: [id number] Author: DEO VU RT(R) Service: Radiology Author Type: Technologist Type: Progress Notes Filed: 04/21/2024 11:00 Note Text: Radiology Service Progress Note PATIENT NAME: Mitali Ann DATE OF SERVICE: April 21, 2024 TIME: 10:48 AM PATIENT IDENTITY VERIFICATION COMPLETED USING TWO (2) IDENTIFIERS: Name and Date of confirmed by patient verbally. FALL SCREENING: Has the patient had 2 falls in the last year or 1 fall with injury or currently using an Ambulatory Assistive Device (Walker, Cane, Wheelchair, Crutches, etc.)? No PATIENT GENDER DATA: Female. status: : Yes. Radiologist notified: Patient and provider ok with imaging status: NO. PATIENT RELEVANT IMPLANT DATA REVIEWED: Yes PATIENT PRESENTS WITH AN IMPLANTABLE OR ATTACHED GOLD TOOLER: No RADIOLOGY DEPARTMENT: General X-ray: Exam(s) Completed: Chest X-Ray PERIPHERAL IV DATA: Not applicable SIGNED BY: KEERTHI Armstrong) April 21, 2024 10:48 AM [facility] 04-20-2024 Note HNO ID: [id number] Author: RIRI EATON APRN.BELT CHANGER Service: ? Author Type: Nurse Practitioner Type: Progress Notes Filed: 04/20/2024 14:26 Note Text: Subjective HPI HPI Mitali Ann is a 24 year old female who presents today for CC of cough, sinus pressure. This started 2 weeks ago. Has tried otc medication for relief. Symptoms are worsened by nothing. Risk factors sick exposures at work. 29 weeks . nonsmoker. .Patient presents with: Cough: X2 weeks, R ear pain PAST MEDICAL HISTORY Diagnosis Date Generalized anxiety disorder PAST SURGICAL HISTORY Procedure Laterality Date MYRINGOTOMY ASPIRAND/EUSTACHIAN TUBE NFLTJ ALLERGIES Patient has no known allergies. MEDICATIONS vit,calc76/iron/folic (PNV 29-1 ORAL) Take by mouth once daily. REGLAN 10 mg tablet 10 mg. (Patient not taking: Reported on 04/20/2024) IMITREX 50 mg tablet 50 mg. (Patient not taking: Reported on 04/20/2024) aspirin, enteric coated (ECOTRIN LOW STRENGTH) 81 mg EC tablet Take 1 tablet by mouth once daily. (Patient not taking: Reported on 04/20/2024) FAMILY HISTORY Problem Relation Age of Onset other (cavernous malformation) Mother other (epilepsy) Mother Primary Biliary Cirrhosis Father other (brain tumor) Sister Asthma Sister No Known Problems Sister No Known Problems Brother No Known Problems Brother No Known Problems Maternal Grandmother COPD Maternal Grandfather No Known Problems Paternal Grandmother No Known Problems Paternal Grandfather Social History Tobacco Use Smoking status: Never Passive exposure: Never Smokeless tobacco: Never Tobacco comments: Pt vapes but stopped at 5 weeks Vaping Use Vaping status: Former Substances: Nicotine Substance Use Topics Alcohol use: Never Drug use: Never Review of Systems Constitutional: Negative for fever. HENT: Positive for congestion, sinus pain and sore throat. Negative for ear pain and nosebleeds. Respiratory: Positive for cough. Negative for shortness of breath and wheezing. Musculoskeletal: Negative for neck pain. Skin: Negative for itching and rash. Neurological: Positive for headaches. Objective Blood pressure 111/71, pulse 92, temperature 36.8 ?C (98.2 ?F), resp. rate 18, weight 87.6 kg (193 lb 2 oz), last menstrual period 09/28/2023, SpO2 99%. Physical Exam Constitutional: General: She is not in acute distress. Appearance: She is not toxic-appearing or diaphoretic. HENT: Head: Normocephalic and atraumatic. Nose: Right Sinus: Frontal sinus tenderness present. Left Sinus: Frontal sinus tenderness present. Cardiovascular: Rate and Rhythm: Normal rate and regular rhythm. Heart sounds: Normal heart sounds, S1 normal and S2 normal. Pulmonary: Effort: Pulmonary effort is normal. Breath sounds: Normal breath sounds. Lymphadenopathy: Cervical: No cervical adenopathy. Right cervical: No superficial cervical adenopathy. Left cervical: No superficial cervical adenopathy. Neurological: Mental Status: She is alert and oriented to person, place, and time. Gait: Gait is intact. ASSESSMENT/PLAN: 1. Subacute cough - ICD9: 786.2, ICD10: R05.2 (primary diagnosis) Return for xray tomorrow Treat per results . - XR CHEST 2V FRONTAL/LAT 2. Sore throat - ICD9: 462, ICD10: J02.9 negative - ALERE STREP A TEST (AG) 3. Sinus pressure - ICD9: 478.19, ICD10: J34.89 Call in atb tomorrow after xray resulted. Riri Eaton APRN.[facility] 04-20-2024 History of Presen t illness Narrative Subjective HPI HPI Mitali Ann is a 24 year old female who presents today for CC of cough, sinus pressure. This started 2 weeks ago. Has tried otc medication for relief. Symptoms are worsened by nothing. Risk factors sick exposures at work. 29 weeks . nonsmoker. .Patient presents with: Cough: X2 weeks, R ear pain PAST MEDICAL HISTORY Diagnosis Date Generalized anxiety disorder PAST SURGICAL HISTORY Procedure Laterality Date MYRINGOTOMY ASPIR&/EUSTACHIAN TUBE NFLTJ ALLERGIES Patient has no known allergies. MEDICATIONS vit,calc76/iron/folic (PNV 29-1 ORAL) Take by mouth once daily. REGLAN 10 mg tablet 10 mg. (Patient not taking: Reported on 04/20/2024) IMITREX 50 mg tablet 50 mg. (Patient not taking: Reported on 04/20/2024) aspirin, enteric coated (ECOTRIN LOW STRENGTH) 81 mg EC tablet Take 1 tablet by mouth once daily. (Patient not taking: Reported on 04/20/2024) FAMILY HISTORY Problem Relation Age of Onset other (cavernous malformation) Mother other (epilepsy) Mother Primary Biliary Cirrhosis Father other (brain tumor) Sister Asthma Sister No Known Problems Sister No Known Problems Brother No Known Problems Brother No Known Problems Maternal Grandmother COPD Maternal Grandfather No Known Problems Paternal Grandmother No Known Problems Paternal Grandfather Social History Tobacco Use Smoking status: Never Passive exposure: Never Smokeless tobacco: Never Tobacco comments: Pt vapes but stopped at 5 weeks Vaping Use Vaping status: Former Substances: Nicotine Substance Use Topics Alcohol use: Never Drug use: Never Review of Systems Constitutional: Negative for fever. HENT: Positive for congestion, sinus pain and sore throat. Negative for ear pain and nosebleeds. Respiratory: Positive for cough. Negative for shortness of breath and wheezing. Musculoskeletal: Negative for neck pain. Skin: Negative for itching and rash. Neurological: Positive for headaches. Objective Blood pressure 111/71, pulse 92, temperature 36.8 C (98.2 F), resp. rate 18, weight 87.6 kg (193 lb 2 oz), last menstrual period 09/28/2023, SpO2 99%. Physical Exam Constitutional: General: She is not in acute distress. Appearance: She is not toxic-appearing or diaphoretic. HENT: Head: Normocephalic and atraumatic. Nose: Right Sinus: Frontal sinus tenderness present. Left Sinus: Frontal sinus tenderness present. Cardiovascular: Rate and Rhythm: Normal rate and regular rhythm. Heart sounds: Normal heart sounds, S1 normal and S2 normal. Pulmonary: Effort: Pulmonary effort is normal. Breath sounds: Normal breath sounds. Lymphadenopathy: Cervical: No cervical adenopathy. Right cervical: No superficial cervical adenopathy. Left cervical: No superficial cervical adenopathy. Neurological: Mental Status: She is alert and oriented to person, place, and time. Gait: Gait is intact. ASSESSMENT/PLAN: 1. Subacute cough - ICD9: 786.2, ICD10: R05.2 (primary diagnosis) Return for xray tomorrow Treat per results . - XR CHEST 2V FRONTAL/LAT 2. Sore throat - ICD9: 462, ICD10: J02.9 negative - ALERE STREP A TEST (AG) 3. Sinus pressure - ICD9: 478.19, ICD10: J34.89 Call in atb tomorrow after xray resulted. Riri Eaton APRN.BELT CHANGER documented in this encounter [facility] 04-17-2024 Note . MICRO - Microbiology PROCEDURE: Urine Culture [*1] SOURCE: Urine, Clean Catch BODY SITE: COLLECTED DATE/TIME: 04/15/2024 13:45 EDT RECEIVED DATE/TIME: 04/15/2024 21:17 EDT START DATE/TIME: 04/15/2024 21:18 EDT FREE TEXT SOURCE: FINAL REPORTS Final Report [] Verified Date/Time/Personnel: 04/17/2024 08:02 EDT 10,000 - 50,000 cfu/ml Mixed growth consistent with normal urogenital siena. PRELIMINARY REPORTS Preliminary Report [] Verified Date/Time/Personnel: 04/16/2024 11:32 EDT Culture results pending. Performing Locations *1: This test was performed at: [facility], [address] [place] [address], [facility] 04-07-2024 Hospital Discharg e instructions Patient Education 04/07/2024 12:38:09 7 - Labor and Delivery Outpatient Instructions(CUSTOM) [facility] OUT[facility] HOME-GOING INSTRUCTIONS _X_ You are to follow up with your physician in ___ days/weeks. ACTIVITY ___ Bedrest __X_Activity as tolerated ___ No work/school for ___ days. ___Other PRESCRIPTION GIVEN ___Yes NAUSEA/VOMITING ___ Take small, frequent amounts of clear liquids. Avoid fruit juices and milk. ___ Increase fluid intake to a minimum of 8 ounces of fluid every hour while awake. ___ Soft diet. Rice, crackers, bananas, Jell-O, cooked carrots, applesauce. ___ Saline diet. Avoid caffeine, chocolate, alcohol, spiced/greasy foods. URINARY TRACT INFECTION _X__ Drink 8-12 glasses of water every day. _X__ Urinate frequently; do not limit fluids to reduce frequency of urination. ___ Call your physician if burning and frequency with urination returns after taking all your medication. ___ Call your physician if you have a temperature of 100.4 degrees Fahrenheit or higher. ___ Wipe from front to back. SIGNS OF PRE-ECLAMPSIA ___ Severe heartburn. ___ Persistent headache not relieved by Tylenol. ___ Increased in swelling of face, hands and feet. ___ Blurred vision, double vision, or spots in the eyes. ___ Persistent vomiting. ___ *Convulsions or seizures. LABOR ___ Restrict activity. __X_ Drink 8-12 glasses of water every day. __X_ Urinate frequently ___ Pelvic rest. No sexual intercourse/ Call your physician if you experience: __X_ Increase in vaginal discharge, leaking fluid, or vaginal bleeding. __X_ More than 4, 5, or 6 contractions in one hour. __X_ Burning and frequency with urination. DECREASED MOVEMENT __X_ Lie down on your left side, drink some fluids and relax. Count the movements. You need to have 10 movements in 2 hours. _X__ If you do not feel the 10 movements, call your physician. OTHER ___ After an exam you may experience some spotting or discharge. As long as it is not bright red and heavy like a period or continues to leak as if your water broke, it is to be expected. ___ LABOR Call your physician if you experience: _X__ Painful uterine contractions every __5_ minutes for __1_ hours. __X_A gush or continuous trickle of watery discharge. COME TO THE HOSPITAL AND CALL PHYSICIAN IF: _X__ Your abdomen feels continually firm. _X__ *Bleeding is bright red and enough to saturate a pad in one hour or less. *Call 911 or go to the nearest Emergency Room for assistance. Form [id number] D: 06/09 Document Released: 06/18/2006 Document Revised: 06/06/2012 Document Reviewed: 06/18/2006 [employer] Patient Information 2012 [employer]. [facility] 04-07-2024 Note ORIGINAL EXAMINATION: RETROPERITONEAL ULTRASOUND OF [facility] 04/07/2024 COMPARISON: None HISTORY: ORDERING SYSTEM PROVIDED HISTORY: Reason for Exam: right hydronephrosis FINDINGS: Kidneys: The right kidney measures 10.9 cm in length and the left kidney measures 9.1 cm in length. Mild right pelvicaliectasis. Bilateral renal cortex is unremarkable in thickness and echogenicity. No significant left hydronephrosis. No sonographic evidence of suspicious renal lesions or intrarenal stones. Bladder: Unremarkable appearance of the urinary bladder. Bilateral ureteral jets are noted. 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 I have personally reviewed the images of this examination and agree with the resident's findings and interpretation. Interpreted by: Tc Carcamo Preliminary Report By: Tian Wei Electronically signed By Tc Carcamo Dictated Date: 04/07/2024 11:12:49 AM Prelim Date: 04/07/2024 11:24:13 AM Sign Date: 04/07/2024 11:24:13 AM Ordering Provider: PACO MANCILLA [facility] 04-01-2024 Evaluation + Plan note Future Scheduled TestsGlucose 1 Hour Challenge 04/01/24Rapid Plasma Reagin Test 04/01/24Complete Blood Count 04/01/24 [facility] 03-06-2024 Note . MICRO - Microbiology PROCEDURE: Urine Culture [*1] SOURCE: Urine, Clean Catch BODY SITE: COLLECTED DATE/TIME: 03/04/2024 13:41 EDT RECEIVED DATE/TIME: 03/04/2024 19:01 EDT START DATE/TIME: 03/04/2024 19:01 EDT FREE TEXT SOURCE: FINAL REPORTS Final Report [] Verified Date/Time/Personnel: 03/06/2024 07:28 EDT No growth to date PRELIMINARY REPORTS Preliminary Report [] Verified Date/Time/Personnel: 03/05/2024 09:45 EDT No growth to date Performing Locations *1: This test was performed at: [address], [address]- , [facility] ([place]) 02-08-2024 Note . MICRO - Microbiology PROCEDURE: Urine Culture [*1] SOURCE: Urine, Clean Catch BODY SITE: COLLECTED DATE/TIME: 02/06/2024 17:02 EDT RECEIVED DATE/TIME: 02/06/2024 19:45 EDT START DATE/TIME: 02/06/2024 19:45 EDT FREE TEXT SOURCE: FINAL REPORTS Final Report [] Verified Date/Time/Personnel: 02/08/2024 07:35 EDT >100,000 cfu/ml Mixed growth consistent with normal urogenital siena. PRELIMINARY REPORTS Preliminary Report [] Verified Date/Time/Personnel: 02/07/2024 10:35 EDT Culture results pending. Performing Locations *1: This test was performed at: [facility], [address] [place] [address], [facility] , [facility] ([place]) 01-21-2024 Progress note Formatting of t his note might be different from the original. RR- VB No. LOF No. CTXS No. Movement: present. Other c/o: intermittent BLACK, common for her during Medication list reviewed. Physical Exam See Flow Sheet Abd: soft, nontender, gravid A/P 16w3d Estimated Date of Delivery: 07/04/24 Labs: pn labs d/w her aneuplopidy screening, desire NIPT anatomy US ordered. David Edwards M.D. [facility] 01-21-2024 Miscellaneous Notes RR- VB No. LOF No. CTXS No. Movement: present. Other c/o: intermittent BLACK, common for her during Medication list reviewed. Physical Exam See Flow Sheet Abd: soft, nontender, gravid A/P 16w3d Estimated Date of Delivery: 07/04/24 Labs: pn labs d/w her aneuplopidy screening, desire NIPT anatomy US ordered. David Edwards M.D. documented in this encounter [facility] 01-21-2024 Instructions Yissel Lofton MA - 01/21/2024 10:27 AM EDT SEQUENTIAL SCREENINGS The [facility] offers sequential screenings for women who are interested in screenings for chromosomal abnormalities and certain defects during a . The sequential screen combines ultrasound and blood tests to determine the risk of chromosomal abnormalities, including Down's Syndrome (Trisomy 21) and Trisomy 18, as well as open neural tube defects including spina bifida. Ultrasound examination is performed between 11 weeks and 13 weeks gestational age. Blood tests are drawn after the ultrasound and again later in the between 15 and 21 weeks gestational age. Please let your physician know if you are interested in this testing. It will require an appointment with our product technician. This is not an ultrasound performed by a physician in our office during a routine visit. SIGNS AND SYMPTOMS OF LABOR 1. Contractions every 10 minutes or more often 2. Clear, pink, or brownish fluid (water) leaking from vagina 3. Feeling that baby is pushing down, pressure 4. Low, dull backache 5. Cramps that feel like a period 6. Cramps with or without diarrhea If you notice any of the above symptoms, contact our office at [phone] and ask to speak with a nurse. After hours, you can call doctors registry at [phone] OR call [facility] at [phone] and ask to have the doctor receptionist airline lounge paged. If you consider this an emergency, dial [phone] or go to your nearest emergency department. NEED HELP? Are you dealing with a violent or abusive relationship? Are you a victim of rape or sexual assult? Call [facility] ([place]) 24 hour Crisis Hotline: 218.235.9869 or 501-815-5864. MANUAL Your Guide to a Healthy manual is now on-line. Visit [email or web address] to download your free copy documented in this encounter [facility] 11-29-2023 Telephone encounter Note Patient here for NOB now. Enriqueta Hoang RN [facility] 11-29-2023 Miscellaneous Notes Patient here for NOB now. Enriqueta Hoang RN Left message for patient to return phone call to complete nurse intake questions for her upcoming appointment. Patient has an appointment with Ivania Esquivel for NOB appointment. She is new to clinic-please triage if she is transferring care or had previous deliveries elsewhere. I will be here most of today or you can transfer her to [facility] documented in this encounter [facility] 11-29-2023 Instructions Luanne Healy LPN - 11/29/2023 8:16 AM EDT Please select the following link to access the [facility] Your Guide to a Healthy . [email or web address] documented in this encounter [facility] 11-29-2023 Note HNO ID: [id number] Author: IVANIA ESQUIVEL APRN.BELT CHANGER Service: ? Author Type: Nurse Practitioner Type: Progress Notes Filed: 11/29/2023 09:57 Note Text: OB point of care ultrasound was performed. See imaging tab for details. Luanne Healy LPN INITIAL OB ASSESSMENT HPI: Mitali is a 23 year old No obstetric history on file. White here to establish Obstetrical Care. No LMP recorded. from OB Dating Form. was unplanned but accepted Complaints: No OB History No obstetric history on file. Previous history: Prior : never History of 4th degree laceration: No History of shoulder dystocia: No History of Hypertensive disorders including pre-eclampsia or gestational hypertension: No History of gestational diabetes: No Patient's Risk Screening for delivery: Have you had a prior delacruz between 20w and 36w6d? No How many pregnancies have you had before? 1 Did you have a previous baby with a GBS Infection? No Please select all that apply for any prior : N/A MEDICAL/PSYCHOSOCIAL HISTORY: History of hemorrhage or bleeding concerns: No Thyroid Disease: No History of chronic hypertension: No History of pre-existing diabetes: No No results found for: ABORHD No weight on file for this encounter. Last Pap: History of abnormal pap: No Prior treatment for cervical dysplasia: none. History of STDs: None Partner History of STDs: None Did you have a partner with Herpes? No Tobacco use: No E-Cigarette/Vaping Use: No Caffeine use: Yes Drug use: No Alcohol use: No Multivitamin with Folic acid: Yes Would refuse blood transfusion if medically necessary: No Social Needs: How often does this describe you? I don't have enough money to pay my bills: Never Within the past 12 months, have you worried that your food would run out before you had money to buy more? Never In the past 12 months, has lack of reliable transportation kept you from going to medical appointments or work, or from getting things needed for daily living? Never In the past 12 months, have you had any concerns about having a place to live, or about the condition or quality of your housing? Never Would you like more information on any of the following (please check all that apply)? Social History: Do you have any history of depression, anxiety, PTSD, or other mood problems? Yes Do you have a history of abuse or trauma that may impact your experience? No Are you currently employed? Yes Depression/Anxiety Screening: denies symptoms of depression. OB Depression and Anxiety Screening- This Encounter (since 11/28/2023) None Genetic Screening: Partner present: No Patient verbalized knowledge of partner family health history: Yes Do you or your partner have any personal or family history of defects not previously discussed: No Do you have history of a complicated by anomaly, genetic condition, or demise: Yes, Autism and Mental retardation Low Dose ASA Screening: Screening for low dose aspirin use for the prevention of pre-eclampsia: High risk factors: None Moderate risk ractors: None OB Risk Screening: Completed, no positive findings documented. Marital Status:Co-habitating Partner: Name: Nathanael Ambrocio Age: 25 Occupation: [employer] Gender: Male No past medical history on file. No past surgical history on file. No current outpatient medications on file. No current facility-administered medications for this visit. Allergies As of Date: 11/29/2023 (Not on File) Does patient have penicillin allergy: No REVIEW OF SYSTEMS: GENERAL: Negative for: Fever or Chills HEENT: Negative for: Headache, Impaired Vision, Ringing in Ears, Nosebleeds NECK: Negative for: Swelling, Pain, Stiffness RESPIRATORY: Negative for: Cough, Shortness of breath, Wheezing GASTROINTESTINAL: Negative for: Heartburn, Constipation, Diarrhea, Blood in stool, Vomiting MUSCULOSKELETAL: Negative for: Muscle or joint pain, stiffness, Joint swelling NEUROLOGIC/PSYCHIATRIC: Negative for: Weakness, Paralysis, Numbness, Tingling, Tremor, Anxiety, Depression, Memory loss SKIN: Negative for: Rash, Itching GENITOURINARY: Negative for: vaginal itching, vaginal discharge, hematuria or dysuria PHYSICAL EXAM: There were no vitals taken for this visit. GENERAL: pleasant in no apparent distress DERMATOLOGY: Normal, without lesions, non-icteric, and non-hirsute NECK: Supple, full range of motion, no adenopathy, and thyroid normal CHEST: Normal inspiratory effort BREAST: soft, non-tender, symmetric, no dominant mass, normal nipple-areolar complex, no lymphadenopathy, and no nipple discharge ABDOMEN: soft, non-tender, and no masses NEURO: alert and oriented x3,exam grossly non-focal PELVIS: External genitalia normal without lesions. Perineal body intact. No vaginal or cervical lesion (more content not included)... [facility] 11-29-2023 History of Presen t illness Narrative OB point of care ultrasound was performed. See imaging tab for details. Luanne Healy LPN INITIAL OB ASSESSMENT HPI: Mitali is a 23 year old No obstetric history on file. White here to establish Obstetrical Care. No LMP recorded. from OB Dating Form. was unplanned but accepted Complaints: No OB History No obstetric history on file. Previous history: Prior : never History of 4th degree laceration: No History of shoulder dystocia: No History of Hypertensive disorders including pre-eclampsia or gestational hypertension: No History of gestational diabetes: No Patient's Risk Screening for delivery: Have you had a prior delacruz between 20w and 36w6d? No How many pregnancies have you had before? 1 Did you have a previous baby with a GBS Infection? No Please select all that apply for any prior : N/A MEDICAL/PSYCHOSOCIAL HISTORY: History of hemorrhage or bleeding concerns: No Thyroid Disease: No History of chronic hypertension: No History of pre-existing diabetes: No No results found for: ABORHD No weight on file for this encounter. Last Pap: History of abnormal pap: No Prior treatment for cervical dysplasia: none. History of STDs: None Partner History of STDs: None Did you have a partner with Herpes? No Tobacco use: No E-Cigarette/Vaping Use: No Caffeine use: Yes Drug use: No Alcohol use: No Multivitamin with Folic acid: Yes Would refuse blood transfusion if medically necessary: No Social Needs: How often does this describe you? I don't have enough money to pay my bills: Never Within the past 12 months, have you worried that your food would run out before you had money to buy more? Never In the past 12 months, has lack of reliable transportation kept you from going to medical appointments or work, or from getting things needed for daily living? Never In the past 12 months, have you had any concerns about having a place to live, or about the condition or quality of your housing? Never Would you like more information on any of the following (please check all that apply)? Social History: Do you have any history of depression, anxiety, PTSD, or other mood problems? Yes Do you have a history of abuse or trauma that may impact your experience? No Are you currently employed? Yes Depression/Anxiety Screening: denies symptoms of depression. OB Depression and Anxiety Screening- This Encounter (since 11/28/2023) None Genetic Screening: Partner present: No Patient verbalized knowledge of partner family health history: Yes Do you or your partner have any personal or family history of defects not previously discussed: No Do you have history of a complicated by anomaly, genetic condition, or demise: Yes, Autism and Mental retardation Low Dose ASA Screening: Screening for low dose aspirin use for the prevention of pre-eclampsia: High risk factors: None Moderate risk ractors: None OB Risk Screening: Completed, no positive findings documented. Marital Status:Co-habitating Partner: Name: Nathanael Ambrocio Age: 23 Occupation: [employer] Gender: Male No past medical history on file. No past surgical history on file. No current outpatient medications on file. No current facility-administered medications for this visit. Allergies As of Date: 11/29/2023 (Not on File) Does patient have penicillin allergy: No REVIEW OF SYSTEMS: GENERAL: Negative for: Fever or Chills HEENT: Negative for: Headache, Impaired Vision, Ringing in Ears, Nosebleeds NECK: Negative for: Swelling, Pain, Stiffness RESPIRATORY: Negative for: Cough, Shortness of breath, Wheezing GASTROINTESTINAL: Negative for: Heartburn, Constipation, Diarrhea, Blood in stool, Vomiting MUSCULOSKELETAL: Negative for: Muscle or joint pain, stiffness, Joint swelling NEUROLOGIC/PSYCHIATRIC: Negative for: Weakness, Paralysis, Numbness, Tingling, Tremor, Anxiety, Depression, Memory loss SKIN: Negative for: Rash, Itching GENITOURINARY: Negative for: vaginal itching, vaginal discharge, hematuria or dysuria PHYSICAL EXAM: There were no vitals taken for this visit. GENERAL: pleasant in no apparent distress DERMATOLOGY: Normal, without lesions, non-icteric, and non-hirsute NECK: Supple, full range of motion, no adenopathy, and thyroid normal CHEST: Normal inspiratory effort BREAST: soft, non-tender, symmetric, no dominant mass, normal nipple-areolar complex, no lymphadenopathy, and no nipple discharge ABDOMEN: soft, non-tender, and no masses NEURO: alert and oriented x3,exam grossly non-focal PELVIS: External genitalia normal without lesions. Perineal body intact. No vaginal or cervical lesions. Cervix closed. No adnexal masses or tenderness. Clinical Pelvimetry: Pelvimetry clinically assessed as adequate Limited OB ultrasound exam: single intrauterine and positive cardiac activity POCUS performed. +cardiac activity, CRL consistent with LMP. ASSESSMENT: 23 year old No obstetric history on file. at Unknown wks gestational age PLAN: 1) Patient oriented to practice. Patient given new OB orientation folder. Discussed nutrition, folic acid supplementation, dietary guidelines, exercise, smoking, alcohol, caffeine, and drug use. Discussed gestational weight gain guidelines. Discussed routine OB labs including STD/HIV. Discussed how to access Your guide to a health and the [employer]. Reviewed midwifery and construction carpenters helper services that are available. 2) Screening: Hemoglobin A1C: ordered Baby Aspirin: The patient has been counseled about the potential benefits of low dose aspirin in and our recommendation that this be offered to all patients, regardless of whether they meet the high risk criteria specified above. She Accepts Aneuploidy Screening: Discussed aneuploidy screening, nuchal translucency/first trimester early anatomy ultrasound and NIPT. The risks/benefits and limitations of NIPT/aneuploidy screening were reviewed including the potential for false negative and false positive results. The availability of genetic counseling was reviewed. Information on aneuploidy screening was provided. The patient chooses to proceed with NIPT (10 weeks) Myriad Carrier Screening: Discussed myriad carrier screening. We discussed the availability of professional-society guided carrier screening and reviewed the conditions screened and limitations of screening. The availability of genetic counseling was reviewed. Information on carrier screening was provided. The patient Declines 3) Patient offered option of Virtual Visits. Patient unsure. May consider in future. 4) previous vaginal delivery w/o complications Pitocin induced- pitocin did cause her BP to drop and it needed to be decreased during labor Follow up in 4 weeks or sooner prn. *previous delivery with [place] @ [facility]- will get delivery record. Ivania Esquivel APRN.RAFIQ documented in this encounter [facility] 11-22-2023 Telephone encounter Note Left message for patient to return phone call to complete nurse intake questions for her upcoming appointment. Patient has an appointment with Ivania Esquivel for NOB appointment. She is new to clinic-please triage if she is transferring care or had previous deliveries elsewhere. I will be here most of today or you can transfer her to [facility] Evaluation + Plan note Future Appointments Appointment Date:02/14/2024 07:30:00 AM Scheduled Provider: Location:[facility] Appointment Type:US OB > 14 wks Appointment Date:03/04/2024 10:45:00 AM Scheduled Provider:JUAN RODRIGUEZ MD Location:[facility] Appointment Type: OV Future Scheduled TestsABO/Rh (Gel) 02/06/24Antibody Screen (Gel) 02/06/24Cystic Fibrosis Screen (AH) 02/06/24Chlamydia trachomatis PCR 02/06/24N. gonorrhoeae PCR 02/06/24epatitis B Surface Antigen 02/06/24Rapid Plasma Reagin Test 02/06/24Rubella Antibody 02/06/24A1C Hemoglobin 02/06/24Complete Blood Count 02/06/24epatitis C Antibody IgG 02/06/24IV 1/2 Ab 02/06/24Varicella Zoster Antibody 02/06/24Complete Metabolic Panel 02/06/24MISC Lab Send out (Blood Specimens) 02/06/24US OB Limited/Transvaginal 02/06/24US OB > 14 weeks 02/14/24 [facility] Evaluation + Plan note Future Appointments Appointment Date:04/01/2024 09:30:00 AM Scheduled Provider:MATILDE SEQUEIRA Location:[facility] Appointment Type: OV OB Routine Follow Up Diagnostic Tests PendingUrine Culture 03/04/24 [facility] Evaluation + Plan note Future Appointments Appointment Date:04/15/2024 10:30:00 AM Scheduled Provider:JUAN RODRIGUEZ MD Location:[facility] Appointment Type: OV OB Routine Follow Up Future Scheduled TestsGlucose 1 Hour Challenge 04/01/24Rapid Plasma Reagin Test 04/01/24Complete Blood Count 04/01/24 [facility] Evaluation + Plan note Future Appointments Appointment Date:04/29/2024 03:45:00 PM Scheduled Provider:JUAN RODRIGUEZ MD Location:[facility] Appointment Type: OV OB Routine Follow Up Future Scheduled TestsGlucose 1 Hour Challenge 04/01/24Rapid Plasma Reagin Test 04/01/24Complete Blood Count 04/01/24 [facility] Evaluation note Diagnosis with uncertain dates in first trimester- Primary Encounter for supervision of other normal in first trimester 8 weeks gestation of state, incidental [facility] [place] [facility] Diagnosis 16 weeks gestation of - Primary state, incidental Encounter for supervision of other normal in second trimester documented in this [facility] [place] [facility]* Diagnosis Subacute cough- Primary Cough Sore throat Acute pharyngitis Sinus pressure Other diseases of nasal cavity and sinuses documented in this encounter [facility] course Narrative No data available for this section [facility] Hospital Discharge instructions No data available for this section [facility] Progress note No data available for this section [facility] Reason for referral (narrative)* Diagnostic Procedure Only (Routine) - Pending Review Specialty Diagnoses / Procedures Referred By Abida chavez Referred To Contact [facility] Diagnoses 16 weeks gestation of Procedures OBSTETRIC ULTRASOUND WHI US PREG UTERUS AFTER 1ST TRIMEST GESTATION David Edwards MD [address] [place] [id number] [facility] [address] [place] [address] Referral ID Status Reason Start Date Expiration Date Visits Requested Visits Authorized [id number] Pending Review Auto-Generat ed Referral 01/21/2024 01/20/2025 1 1 [facility] Summary Purpose Family History No Family History Records FoundNo Family History Records Found No data available for this section No data available for this section No Family History Records Found No data available for this section No data available for this section No Family History Records Found No data available for this section No Family History Records Found Advance Directives No Advanced Directives Records FoundNo Advanced Directives Records FoundNo Advanced Directives Records FoundNo Advanced Directives Records FoundNo Advanced Directives Records Found Additional Source Comments Source Comments (unrecognize d section and content) In the event this informatio n is protected by the Federal Confidentiality of Alcohol and Drug Abuse Patient Records regulations: The Federal rules restrict any use of the information to criminally investigate or prosecute any alcohol or drug abuse patient.[facility] the event this information is protected by the Federal Confidentiality of Alcohol and Drug Abuse Patient Records regulations: The Federal rules restrict any use of the information to criminally investigate or prosecute any alcohol or drug abuse patient.[facility] the event this information is protected by the Federal Confidentiality of Alcohol and Drug Abuse Patient Records regulations: The Federal rules restrict any use of the information to criminally investigate or prosecute any alcohol or drug abuse patient.[facility] Hospital[facility] the event this information is protected by the Federal Confidentiality of Alcohol and Drug Abuse Patient Records regulations: The Federal rules restrict any use of the information to criminally investigate or prosecute any alcohol or drug abuse patient.[facility] Hospital[facility] the event this information is protected by the Federal Confidentiality of Alcohol and Drug Abuse Patient Records regulations: The Federal rules restrict any use of the information to criminally investigate or prosecute any alcohol or drug abuse patient.[facility] Hospital[facility] the event this information is protected by the Federal Confidentiality of Alcohol and Drug Abuse Patient Records regulations: The Federal rules restrict any use of the information to criminally investigate or prosecute any alcohol or drug abuse patient.[facility] INFORMATION SOURCE (unrecogn ized section and content) DATE CREATED AUTHOR 07/30/2021 [facility] Marsha Hodges DATE CREATED AUTHOR AUTHOR'S ORGANIZ ATION 12/01/2021 [facility] DATE CREATED AUTHOR AUTHOR'S ORGANIZ ATION 03/07/2024 [facility] ([place] DATE CREATED AUTHOR AUTHOR'S ORGANIZ ATION 04/22/2024 [facility] DATE CREATED AUTHOR AUTHOR'S ORGANIZ ATION 04/26/2024 [facility] Reason for Visit (unrecogniz ed section and content) Reason Comments 11/28 NOB Intake Questions Reason Comments Initial OB Visit Specialty Diagnoses / Procedures Referred By Abida chavez Referred To Contact [facility] Diagnoses New OB LMP 09/28/2023 Procedures new ob lmp 09/28/23 Self [facility] [address] [place] [address] Referral ID Status Reason Start Date Expiration Date Visits Requested Visits Authorized [id number] Authorized Patient Cleared - Qualified 100% FAS 11/14/2023 02/12/2024 99 99 Reason Onset Date Comments Care 01/21/2024 Specialty Diagnoses / Procedures Referred By Abida t Referred To Contact [facility] Diagnoses New OB LMP 09/28/2023 Procedures new ob lmp 09/28/23 Self [facility] [address] [place] [address] Referral ID Status Reason Start Date Expiration Date Visits Requested Visits Authorized [id number] Authorized Patient Cleared - INN Insurance Found 11/14/2023 02/12/2024 99 99 Reason Comments Cough X2 weeks, R ear pain Patient Care team informatio n (unrecognized section and content) 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 [facility] [employer] [facility]. provides no warranty or guarantee of the accuracy or completeness of information in this document.
--- NOTE | 2024-04-26 21:00 | EDS_ITS ---
HPI History of Present Illness HPI Narrative: Patient presents with pain to her right thigh, popliteal area, and lower leg that began today. Patient states it is gradually gotten worse. Patient states it is constant. Patient states it is worse with standing and walking. Patient states it is better with rest. Patient admits to some mild swelling. Patient denies any weakness. Patient admits to some tingling into her lower leg. Patient denies any trauma or injury. Chief Complaint: Lower Extremity Injury Informant: patient Onset/Context/Timing Onset: Today Context: Gradual Onset Timing: Continuous Quality of Pain: Dull and Aching Location: Right thigh, popliteal fossa, and lower leg Associated Symptoms Associated Symptoms: Positive for Parasthesia; Negative for Weakness or Loss of Funtion PFSH PFS Medical History COVID Depression Anxiety Home Medications ?Medication ?Instructions ?Recorded ?Last Taken ?Type [id number] 1 mg tab PO 02/01/22 Unknown History tablet quetiapine 100 mg tablet 50 mg Depression 02/07/22 Unknown History ondansetron 4 mg disintegrating 4 mg PO Q4H PRN Nausea #7 tabs 06/18/23 Unknown Rx tablet Allergy/AdvReac Type Severity Reaction Status Date / Time No Known Allergies Allergy Verified 04/26/24 20:28 Surgical History History of surgery Social History Smoking Status: Former smoker ROS ROS ED Constitutional Constitutional ED: Denies chills or fever(s) Eyes Eyes: Denies blurry vision or change in vision ENT ENT ED: Reports sore throat; Denies rhinorrhea Cardiovascular Cardiovascular: Denies chest pain or palpitations Respiratory/Chest Respiratory/Chest: Reports cough; Denies dyspnea Gastrointestinal Gastrointestinal: Denies nausea or vomiting Genitourinary Genitourinary ED: Denies dysuria or hematuria Musculoskeletal Musculoskeletal: Reports neck pain; Denies back pain Integumentary Denies abscess or rash Neurologic Neurologic: Denies headache(s) or weakness Allergic/Immunologic Allergic/Immunologic ED: Denies mouth swelling or urticaria EXAM Physical Exam Const Vital Signs: 04/26/24 20:28 Temperature 98.1 F Temperature Source Oral Pulse Rate 111 H Respiratory Rate 18 Blood Pressure 123/66 H Blood Pressure Mean 85 Pulse Ox 97 Oxygen Delivery Method Room Air Positive well nourished and well developed General Appearance ED: well developed and NAD HEENT Reports moist mucous membranes Neck full ROM and supple Resp normal respiratory effort and clear to auscultation bilaterally Cardio regular rate and regular rhythm Extremity Extremity Narrative: There is mild tenderness over the right lateral thigh, popliteal fossa, and lower leg. There is mild edema. There is no ecchymosis. There is no bony crepitance or step-off. There is good range of motion. Posterior tibial and pedal pulses are equal bilaterally. Neuro oriented x3, CN's II-XII intact bilaterally, moves all extremities and no senso ry deficits noted Sensorium / Orientation: alert Motor Exam: strength 5/5 throughout Psych mental status grossly normal MDM MDM MDM Narrative Medical decision making narrative: Differential diagnosis includes DVT, muscle strain, and contusion. Venous duplex of the right lower extremity will be obtained to assess for DVT. Treatment and Re-Evaluation Narrative: Ultrasound is not available tonight to assess for DVT. Patient was advised of this. Patient was given a prescription to come back tomorrow morning for outpatient venous duplex of her right lower extremity. Since the patient is low suspicion for DVT, I do not feel the patient would benefit from a dose of Lovenox tonight. Patient was also given a note for work for today and tomorrow. Patient understands and is agreeable with the plan. All questions were answered. Discharge Plan Triage Chief Complaint: Lower Extremity Injury ED Provider: Madhav Nielson Dx/Rx/DC Orders Clinical Impression: Acute pain of right lower extremity, Instructions: ED Pain, Acute, Uncertain Cause Prescriptions: No Action 1 mg Tablet PO quetiapine 100 mg tablet 50 mg Patient Comments: TAKE 1 TABLET BY MOUTH EVERY DAY AT BEDTIME ondansetron 4 mg tablet,disintegrating 4 mg PO Q4H PRN (Reason: Nausea) Qty: 7 0RF Stand Alone Forms: ED Work / School Excuse Other Ambulatory Orders: Venous Duplex US, Unilateral (Stat) Facility: [facility] - Location: [facility] Ordered By: Dr. Madhav Nielson Primary Care Provider: Kathrin Grove Referrals: Kathrin Grove MD [Primary Care Provider] - Print Language: Citizen [place] Disposition Disposition: Home, Self Care
[2024-04-26 22:20] VITALS: BP 133/71; PULSE 90; RESP 18; TEMP 36.3; O2SAT 98
== END 2024-04-26 22:21 | disposition home or self-care (01) ==
PROVIDERS: Emergency Provider Emergency Medicine; PCP Family Medicine; Visit Provider Emergency Medicine
DX: O99.891 Other specified diseases and conditions complicating pregnancy (principal); M79.651 Pain in right thigh; M79.661 Pain in right lower leg; M79.89 Other specified soft tissue disorders; O26.899 Other specified pregnancy related conditions, unspecified trimester; R20.2 Paresthesia of skin; O99.340 Other mental disorders complicating pregnancy, unspecified trimester; F32.A Depression, unspecified; F41.9 Anxiety disorder, unspecified; Z3A.00 Weeks of gestation of pregnancy not specified; Z79.899 Other long term (current) drug therapy; Z87.891 Personal history of nicotine dependence
CPT/HCPCS: 99282

== ENCOUNTER → 2024-04-27 | Outpatient (CLI) | payer MEDICAID, SELFPAY ==
--- NOTE | 2024-04-27 12:46 | VDLE_ITS ---
Reason For Study: Pain RLE RIGHT LEFT GSV is normal. CFV is compressible, spontaneous, phasic, CFV is compressible, spontaneous, phasic, competent, and demonstrates normal competent and demonstrates normal augmentation. augmentation. FV is compressible, spontaneous, phasic, competent and demonstrates normal augmentation. POP V is compressible, spontaneous, phasic, competent and demonstrates normal augmentation. T/P Trunk is compressible. PTV is compressible. RT PerV is compressible. Procedure This is a venous duplex using B-mode, color flow and spectral Doppler. Exam performed in department. A preliminary report was called and/or faxed to ED. VL/Venous Duplex US, Unilateral Interpretation Summary Deep veins of the right lower extremity are patent and compressible segmentally . There is no evidence of right lower extremity deep vein thrombosis. Valvular competence kerry ears intact within the proximal deep venous system on the right . The right great saphenous vein a ppears patent and compressible segmentally. The left common femoral vein is patent and compressib le . Ordering Physician: Madhav Nielson Referring Physician: Kathrin Grove Performed By: Paulette Caldwell, CECIL, RVT
--- OUTSIDE RECORDS SUMMARY | 2024-04-27 12:47 | XMS RPT_ITS | CCD ---
Author Organization [facility] Care Team Providers Care Tree Inspector Name Role Phone Unavailable Primary Care Provider [...] Nausea, # 28 tab(s), 0 Refill(s), Pharmacy: [facility], 168.5, cm, 02/06/24 13:39:00 EDT, [...] tab(s)/24hrs, # 9 tab(s), 0 Refill(s), Pharmacy: [facility], 168.5, cm, 02/06/24 13:39:00 EDT, [...] tissues: Unremarkable. IMPRESSION: No acute radiographic abnormality. Recreation Program Specialist: DONG Transcribe Date/Time: Apr 21 2024 11:03A Dictated by : AMADO HERNANDEZ MD This examination was interpreted and the report reviewed and electronically signed by: AMADO HERNANDEZ MD on Apr 21 2024 11:08AM EST [id number] Normal [facility] XR Chest PA and Lateralon IMPRESSION: No acute radiographic abnormality. Recreation Program Specialist: DONG Transcribe Date/Time: Apr 21 2024 11:03A [...] soft tissues: Unremarkable. DIVISION OF RADIOLOGY Provider, [facility] - 04/21/2024 * * *Final Report* * [...] Unremarkable. IMPRESSION IMPRESSION: No acute radiographic abnormality. Recreation Program Specialist: PSCB Transcribe Date/Time: Apr 21 2024 11:03A Dictated by : AMADO HERNANDEZ MD This examination was interpreted and the report reviewed and electronically signed by: AMADO HERNANDEZ MD on Apr 21 2024 11:08AM EST [facility] Radiology Study observation (narrative) [facility] XR Chest PA and LateralOrder ed By: Cc Provider on 04-21-2024 [facility] CNOVon 04-20-2024 CNOV Office Visit (UCWSTR) MITALI ANN ([id number]) 4 F Date Time Provider Department 04/20/24 1:30 PM RIRI EATON [facility] During your visit today, we recorded the following information about you: Temperature Pulse Respiration Blood pressure 98.2 degrees 92/minute 18/minute 111/71 Weight 87.6 kg Riri Eaton APRN.FLEET COORDINATOR 04/20/2024 2:26 PM Signed Subjective HPI HPI [...] atb tomorrow after xray resulted. Riri Eaton APRN.FLEET COORDINATOR Allergies As of Date: 04/20/2024 (No Known Allergies) Date Reviewed: 04/20/2024 Reviewed by: Anny Dumont MA - Fully Assessed Reason for Visit: Cough [28] Cmt: X2 weeks, R ear pain Primary Visit Diagnosis:Subacute cough [R05.2] Other Visit Diagnoses:Sore throat [J02.9] Sinus pressure [J34.89] Order(s):ALERE STREP A TEST (AG) [[id number]] Order #: [id number] STREP A MOLECULAR (POC) [[id number]] Order #: [id number]. [id number] XR CHEST 2V FRONTAL/LAT [[id number]] Order #: [id number] Prescriptions as of 04/20/2024 - REGLAN 10 [...] Status:Closed by RIRI EATON on 04/20/24 Normal [facility] STREP A MOLECULAR (POC)on Procedural Control Valid [facility] Strep A (POCT) Negative Negative [facility] No Panel Informationon 04-15 Culture Urine 10,000 - 50,000 cfu/ml Mixed growth consistent with normal urogenital siena. [facility] Work Phone: .Auto Diffon 04-07-2024 Basophil, Absolute 0.0 10 3/mcL Normal 0.0-0.2 [facility] Comment on above: Performed By: #### C BC, OMAR, CMP, ANEU, GFR, LIP, ADIFF #### [id number] [place], [place] [address] Basophils/100 WBC (Bld) 0.2 % Normal 0.0-2.5 [facility] Comment on above: Performed By: #### C BC, OMAR, CMP, ANEU, GFR, LIP, ADIFF #### [id number] [place], [place] [address] Eosinophil, Absolute 0.1 10 3/mcL Normal 0.0-0.[address] [facility] Comment on above: Performed By: #### C BC, OMAR, CMP, ANEU, GFR, LIP, ADIFF #### [id number] [place], [place] [address] Eosinophils/100 WBC (Bld) 1.0 % Normal 0.0-7.0 [facility] Comment on above: Performed By: #### C BC, OMAR, CMP, ANEU, GFR, LIP, ADIFF #### [address] [address] Lymphocyte, Absolute 0.7 10 3/mcL Low 0.9-4.[address] [facility] Comment on above: Performed By: #### C BC, OMAR, CMP, ANEU, GFR, LIP, ADIFF #### [address] [address] Lymphocytes/100 WBC (Bld) 6.8 % Low 20.0-40.0 [facility] Comment on above: Performed By: #### C BC, OMAR, CMP, ANEU, GFR, LIP, ADIFF #### [address] [address] Monocyte, Absolute 0.5 10 3/mcL Normal 0.1-1.4 [facility] Comment on above: Performed By: #### C BC, OMAR, CMP, ANEU, GFR, LIP, ADIFF #### [address] [address] Monocytes/100 WBC (Bld) 5.1 % Normal 2.0-13.0 [facility] Comment on above: Performed By: #### C BC, OMAR, CMP, ANEU, GFR, LIP, ADIFF #### [address] [address] Neutrophils/100 WBC (Bld) 86.9 % High 50.0-75.0 [facility] Comment on above: Performed By: #### C BC, OMAR, CMP, ANEU, GFR, LIP, ADIFF #### [address] [address] .GFRon 04-07-2024 GFR 171 ml/min/1.73sqm Normal [facility] Comment on above: Result Comment: GFR Population [...] OMAR, CMP, ANEU, GFR, LIP, ADIFF #### [address] [address] GFR Non- 141 ml/min/1.73sqm Normal [facility] Comment on above: Result Comment: GFR Population [...] OMAR, CMP, ANEU, GFR, LIP, ADIFF #### [address] [address] .NEUABSon 04-07-2024 Neutrophil, Absolute 8.6 10 3/mcL High 2.3-8.[address] [facility] Comment on above: Performed By: #### C BC, OMAR, CMP, ANEU, GFR, LIP, ADIFF #### [address] [address] AMYon 04-07-2024 Amylase [Catalytic activity/Vol] 29 U/L Normal 25-115 [facility] Comment on above: Performed By: #### C BC, OMAR, CMP, ANEU, GFR, LIP, ADIFF #### [address] [address] CBCon 04-07-2024 Erythrocyte distribution width (RBC) [Ratio] 12.9 % Normal 11.5-15.5 [facility] Comment on above: Performed By: #### C BC, OMAR, CMP, ANEU, GFR, LIP, ADIFF #### [place] [address] Hematocrit (Bld) [Volume fraction] 35.8 % Normal 34.0-46.0 [facility] Comment on above: Performed By: #### C BC, OMAR, CMP, ANEU, GFR, LIP, ADIFF #### [place] [address] Hgb 11.9 G/dL Low 12.0-16.0 [facility] Comment on above: Performed By: #### C BC, OMAR, CMP, ANEU, GFR, LIP, ADIFF #### [place] [address] MCH (RBC) [Entitic mass] 29.7 pg Normal 27.0-33.0 [facility] Comment on above: Performed By: #### C BC, OMAR, CMP, ANEU, GFR, LIP, ADIFF #### [place] [address] MCHC 33.2 G/dL Normal 32.0-36.0 [facility] Comment on above: Performed By: #### C BC, OMAR, CMP, ANEU, GFR, LIP, ADIFF #### [place] [address] MCV (RBC) [Entitic vol] 89.4 fL Normal 80.0-99.0 [facility] Comment on above: Performed By: #### C BC, OMAR, CMP, ANEU, GFR, LIP, ADIFF #### [place] [address] Platelet 190 10 3/mcL Normal 150-450 [facility] Comment on above: Performed By: #### C BC, OMAR, CMP, ANEU, GFR, LIP, ADIFF #### [place] [address] [place], [place] [address] Platelet mean volume (Bld) [Entitic vol] 9.1 fL Normal 6.6-10.5 [facility] Comment on above: Performed By: #### C BC, OMAR, CMP, ANEU, GFR, LIP, ADIFF #### [address] [address] RBC 4.00 10 6/mcL Low 4.10-5.30 [facility] Comment on above: Performed By: #### C BC, OMAR, CMP, ANEU, GFR, LIP, ADIFF #### [address] [address] WBC 9.9 10 3/mcL Normal 4.5-10.8 [facility] Comment on above: Performed By: #### C BC, OMAR, CMP, ANEU, GFR, LIP, ADIFF #### [address] [address] CMPon 04-07-2024 Albumin Level 2.9 G/dL Low 3.5-5.0 [facility] Comment on above: Performed By: #### C BC, OMAR, CMP, ANEU, GFR, LIP, ADIFF #### [place] [address] Albumin/Globulin [Mass ratio] 0.9 {ratio} Low 1.1-2.5 [facility] Comment on above: Performed By: #### C BC, OMAR, CMP, ANEU, GFR, LIP, ADIFF #### [address] [address] ALP [Catalytic activity/Vol] 109 U/L Normal 40-135 [facility] Comment on above: Performed By: #### C BC, OMAR, CMP, ANEU, GFR, LIP, ADIFF #### [address] [address] ALT [Catalytic activity/Vol] 36 U/L Normal 14-59 [facility] Comment on above: Performed By: #### C BC, OMAR, CMP, ANEU, GFR, LIP, ADIFF #### [address] [address] AST [Catalytic activity/Vol] 14 U/L Normal 10-40 [facility] Comment on above: Performed By: #### C BC, OMAR, CMP, ANEU, GFR, LIP, ADIFF #### [address] [address] Bili Total 0.4 mg/dL Normal 0.2-1.0 [facility] Comment on above: Result Comment: Use of this assay is not recommended for patients undergoing treatment with eltrombopag due to the potential for falsely elevated results. Performed By: #### C BC, OMAR, CMP, ANEU, GFR, LIP, ADIFF #### [place] [address] BUN/Creatinine Ratio 13 ratio Normal 7-27 [facility] Comment on above: Performed By: #### C BC, OMAR, CMP, ANEU, GFR, LIP, ADIFF #### [address] [address] Calcium [Mass/Vol] 8.5 mg/dL Normal 8.4-10.2 [facility] Comment on above: Performed By: #### C BC, OMAR, CMP, ANEU, GFR, LIP, ADIFF #### [address] [address] Chloride [Moles/Vol] 102 mmol/L Normal 98-107 [facility] Comment on above: Performed By: #### C BC, OMAR, CMP, ANEU, GFR, LIP, ADIFF #### [address] [address] CO2 [Moles/Vol] 27 mmol/L Normal 22-29 [facility] Comment on above: Performed By: #### C BC, OMAR, CMP, ANEU, GFR, LIP, ADIFF #### [address] [address] Creatinine [Mass/Vol] 0.54 mg/dL Low 0.55-1.02 [facility] Comment on above: Result Comment: Test ing performed on Siemens Dimension EXL analyzer using a modified kinetic She technique. Performed By: #### C BC, OMAR, CMP, ANEU, GFR, LIP, ADIFF #### [address] [address] Electrolyte Balance 7.0 mEq/L Normal 4.0-15.0 [facility] Comment on above: Performed By: #### C BC, OMAR, CMP, ANEU, GFR, LIP, ADIFF #### [address] [address] Globulin 3.3 G/dL Normal [facility] Comment on above: Performed By: #### C BC, OMAR, CMP, ANEU, GFR, LIP, ADIFF #### [place] [address] Glucose [Mass/Vol] 89 mg/dL Normal 70-105 [facility] Comment on above: Performed By: #### C BC, OMAR, CMP, ANEU, GFR, LIP, ADIFF #### [place] [address] Potassium [Moles/Vol] 3.7 mmol/L Normal 3.5-5.1 [facility] Comment on above: Performed By: #### C BC, OMAR, CMP, ANEU, GFR, LIP, ADIFF #### [place] [address] Sodium [Moles/Vol] 136 mmol/L Normal 136-145 [facility] Comment on above: Performed By: #### C BC, OMAR, CMP, ANEU, GFR, LIP, ADIFF #### [address] [address] Total Protein 6.2 G/dL Low 6.4-8.2 [facility] Comment on above: Performed By: #### C BC, OMAR, CMP, ANEU, GFR, LIP, ADIFF #### [place] [id number] Urea nitrogen [Mass/Vol] 7 mg/dL Normal 7-18 [facility] Comment on above: Performed By: #### C BC, OMAR, CMP, ANEU, GFR, LIP, ADIFF #### [place] [address] [address] [place], [place] [address] LABORATORYOrdered By: SYSTEM SYSTEM on 04-07-2024 Albumin [...] [#/Vol] 9.9 103/mcL Normal 4.5 - 10.8 10^3/[facility] AO Workflow SS LABORATORYOrdered By: Ahsan Nelson [...] 04-07-2024 Lipase Level 21 U/L Normal 16-77 [facility] Comment on above: Performed By: #### C BC, OMAR, CMP, ANEU, GFR, LIP, ADIFF #### [address] [address] UAon 04-07-2024 Color (U) Yellow Normal [facility] Comment on above: Performed By: #### U A #### [address] [address] Glucose (U) [Mass/Vol] Negative Normal Negative [facility] Comment on above: Performed By: #### U A #### [address] [address] Ketones Ql (U) Negative Normal Negative [facility] Comment on above: Performed By: #### U A #### [address] [address] UA Appear Clear Normal Clear [facility] Comment on above: Performed By: #### U A #### [address] [address] UA Blood Negative Normal Negative [facility] Comment on above: Performed By: #### U A #### [place] [address] UA Leuk Est Negative Normal Negative [facility] Comment on above: Performed By: #### U A #### [place] [address] UA Nitrite Negative Normal Negative [facility] Comment on above: Performed By: #### U A #### [place] [address] UA pH 7.0 Normal 5.0 - 8.0 [facility] Comment on above: Performed By: #### U A #### [place] [address] UA Protein Negative Normal Negative [facility] Comment on above: Performed By: #### U A #### [place] [address] UA Spec Grav 1.020 Normal 1.015-1.025 [facility] Comment on above: Performed By: #### U A #### [place] [address] UA Specimen Type Clean Catch Normal [facility] Comment on above: Performed By: #### U A #### [place] [address] UA Urobilinogen 0.2 E.U./dL Normal 0.2-1.0 [facility] Comment on above: Performed By: #### U A #### [place] [address] Urobilinogen (U) [Mass/Vol] Negative Normal Negative [facility] Comment on above: Performed By: #### U A #### [address] [address] US RENALon 04-07-2024 US RENAL ORIGINAL EXAMINATION: [...] 04/07/2024 11:24:13 AM Ordering Provider: PACO MANCILLA [facility] 03-12-2024 Order Number [id number] [facility] Comment on above: Order Comment: Cysti c Fibrosis (CF) Full-Gene Carrier Screen Performed By: #### 9 [id number] #### [address] [address] Test Name Cystic Fibrosis Full-Gene [facility] Comment on above: Order Comment: Cysti c Fibrosis (CF) Full-Gene Carrier Screen Performed By: #### 9 [id number] #### [address] [address] [facility] 03-10-2024 [facility] Test Result COMMENT Normal [facility] Comment on above: Order Comment: Cysti c Fibrosis (CF) Full-Gene Carrier Screen Result Comment: Test Ordered: [id number] Full-gene Carrier Screen CF Full-gene Carrier [...] Genetic counseling services are available. To access [employer] [facility] please visit [email or web address] or call [phone] ([phone]). Additional Clinic... 01 Cystic fibrosis (CF) is [...] affected individuals, lung transplantation may be indicated. (PMID:95569099). Comments 01 This interpretation is based on the clinical information provided and the current understanding of the molecular genetics of the disorder(s) tested. Information about the disorder(s) tested is available at [email or web address]. Methods/Limitations 01 Next-generation Sequencing (NGS): Genomic regions of interest are selected using the Markado(R) hybridization capture method and sequenced via the OptynR) NGS platform. Sequencing reads are aligned to the human genome reference GRCh37/hg19 build. Regions of interest include coding exons, intron/exon junctions (typically +/- 20 nucleotides) and additional genomic regions with known significant pathogenic variants. Analytical sensitivity is estimated to be >99% for single nucleotide variants and small insertions/deletions. Variant detection is performed by [employer] and in-house algorithms. Single exon deletions or duplications can be detected in the CFTR gene with estimated overall analytical sensitivity >99%. Precise breakpoints are not reported. Single-exon deletions or duplications are not detected in some cases due to CNV size limitations, or due to isolated data quality variation or intrinsic sequence properties. Confirmatory testing by orthogonal technologies may include [place] sequencing, or MLPA analysis. Reported variants: Pathogenic [...] consistent with ACMG standards and guidelines (Robert, PMID:[id number]; Adelina, PMID:[id number]). Detailed variant classification information and reevaluation are available upon request. Limitations: Technologies used do not detect germline mosaicism and do not rule out the presence of large chromosomal aberrations including rearrangements and gene fusions, or variants in regions or genes not included in this test, or possible inter/intragenic interactions between variants, or repeat expansions. Variant classification and/or interpretation may mash filter cloth changer time if more information becomes available. False positive or false negative results may occur for reasons that include: rare genetic variants, sex chromosome abnormalities, pseudogene interference, blood transfusions, bone marrow transplantation, somatic or tissue-specific mosaicism, mislabeled samples, or erroneous representation of family relationships. This test was developed and its performance characteristics determined by [employer]. It has not been cleared or approved by the Food and Drug Administration. References 01 Shasta BROWN, Bakari C, Agnieszka ROLDAN et al. CFTR variant testing: a technical standard of the [employer] (ACMG). Cynthia Med 22 1284 (2020). PMID: [id number] Star T, Veun SG, Nely BA, et al. Cystic Fibrosis and Congenital A (more content not included)... Performed By: #### 9 [id number] #### [address] [address] RPRon 02-15-2024 Reagin Ab RPR Ql (S) Non-Reactive Normal Non-Reactive [facility] ([place]) Comment on above: Result Comment: The RPR [...] #### H CV1, VARIS, RPR, RUBIS, HBSAG ####[place] [address]#### ABSGEL, CBC, A1C, ABOGEL, ANEU, CMP, ADIFF, GFR ####[id number] [place] [address] RUBISon 02-15-[address] Positive Normal Positive [facility] ([place]) Comment on above: Result Comment: This immune status assay detects IgM and/or IgG antibody to Rubella. Interpret results in conjunction with clinical history. POS: Antibody detected; exposure at undetermined recent or distant time. If clinically indicated, order Rubella IGM to rule out recent infection. NEG: No antibody detected. Performed By: #### H CV1, VARIS, RPR, RUBIS, HBSAG ####[place] [address]#### ABSGEL, CBC, A1C, ABOGEL, ANEU, CMP, ADIFF, GFR ####[id number] [place] [address] VARISon 02-15-[address] Positive Normal [facility] ([place]) Comment on above: Result Comment: INTE RPRETATION OF VARICELLA IMMUNE STATUS IgG BY EIA: Negative: No detectable VZV IgG antibody. Positive: VZV IgG antibody Detected. If clinically indicated, order Varicella IgM to rule out recent infection. Equivocal: Equivocal for antibodies to VZV. Suggest repeat testing in 10-14 days. Performed By: #### H CV1, VARIS, RPR, RUBIS, HBSAG ####[place] [address]#### ABSGEL, CBC, A1C, ABOGEL, ANEU, CMP, ADIFF, GFR ####[address] [address] .Auto Diffon 02-14-2024 Basophil, Absolute 0.0 10 3/mcL Normal 0.0-0.2 [facility] ([place]) Comment on above: Performed By: #### H CV1, VARIS, RPR, RUBIS, HBSAG #### [place] [address] #### ABSGEL, CBC, A1C, ABOGEL, ANEU, CMP, ADIFF, GFR #### [address] [address] Basophils/100 WBC (Bld) 0.3 % Normal 0.0-2.5 [facility] ([place]) Comment on above: Performed By: #### H CV1, VARIS, RPR, RUBIS, HBSAG #### [place] [address] #### ABSGEL, CBC, A1C, ABOGEL, ANEU, CMP, ADIFF, GFR #### [address] [address] Eosinophil, Absolute 0.2 10 3/mcL Normal 0.0-0.4 [facility] ([place]) Comment on above: Performed By: #### H CV1, VARIS, RPR, RUBIS, HBSAG #### [place] [address] #### ABSGEL, CBC, A1C, ABOGEL, ANEU, CMP, ADIFF, GFR #### [address] [address] Eosinophils/100 WBC (Bld) 2.6 % Normal 0.0-7.0 [facility] ([place]) Comment on above: Performed By: #### H CV1, VARIS, RPR, RUBIS, HBSAG #### [place] [address] #### ABSGEL, CBC, A1C, ABOGEL, ANEU, CMP, ADIFF, GFR #### [address] [address] Lymphocyte, Absolute 1.9 10 3/mcL Normal 0.8-3.9 [facility] ([place]) Comment on above: Performed By: #### H CV1, VARIS, RPR, RUBIS, HBSAG #### [place] [address] #### ABSGEL, CBC, A1C, ABOGEL, ANEU, CMP, ADIFF, GFR #### [address] [address] Lymphocytes/100 WBC (Bld) 20.3 % Normal 10.0-50.0 [facility] ([place]) Comment on above: Performed By: #### H CV1, VARIS, RPR, RUBIS, HBSAG #### [place] [address] #### ABSGEL, CBC, A1C, ABOGEL, ANEU, CMP, ADIFF, GFR #### [address] [address] Monocyte, Absolute 0.8 10 3/mcL Normal 0.2-1.0 [facility] ([place]) Comment on above: Performed By: #### H CV1, VARIS, RPR, RUBIS, HBSAG #### [place] [address] #### ABSGEL, CBC, A1C, ABOGEL, ANEU, CMP, ADIFF, GFR #### [address] [address] Monocytes/100 WBC (Bld) 8.6 % Normal 1.7-13.0 [facility] ([place]) Comment on above: Performed By: #### H CV1, VARIS, RPR, RUBIS, HBSAG #### [place] [address] #### ABSGEL, CBC, A1C, ABOGEL, ANEU, CMP, ADIFF, GFR #### [address] [address] Neutrophils/100 WBC (Bld) 68.2 % Normal 37.0-80.0 [facility] ([place]) Comment on above: Performed By: #### H CV1, VARIS, RPR, RUBIS, HBSAG #### [place] [address] #### ABSGEL, CBC, A1C, ABOGEL, ANEU, CMP, ADIFF, GFR #### [address] [address] .GFRon 02-14-2024 GFR Non- 126 ml/min/1.73sqm Normal [facility] ([place]) Comment on above: Result Comment: GFR Population [...] H CV1, VARIS, RPR, RUBIS, HBSAG #### [place] [address] #### ABSGEL, CBC, A1C, ABOGEL, ANEU, CMP, ADIFF, GFR #### [address] [address] GFR 153 ml/min/1.73sqm Normal [facility] ([place]) Comment on above: Result Comment: GFR Population [...] H CV1, VARIS, RPR, RUBIS, HBSAG #### [place] [address] #### ABSGEL, CBC, A1C, ABOGEL, ANEU, CMP, ADIFF, GFR #### [address] [address] .NEUABSon 02-14-2024 Neutrophil, Absolute 6.4 10 3/mcL High 2.9-6.2 [facility] ([place]) Comment on above: Performed By: #### H CV1, VARIS, RPR, RUBIS, HBSAG #### [place] [address] #### ABSGEL, CBC, A1C, ABOGEL, ANEU, CMP, ADIFF, GFR #### [address] [address] A1Con 02-14-2024 Glucose [Mass/Vol] 103 mg/dL Normal [facility] ([place]) Comment on above: Result Comment: Judi mated Average Glucose calculated by equation ((28.7xA1C)-46.7) Estimated average glucose (eAG) is a calculated value from Hemoglobin A1C and is life assurance representative of the average blood glucose level in the last 2-3 month period. Normal range: less than 114 mg/dL Performed By: #### H CV1, VARIS, RPR, RUBIS, HBSAG #### [place] [address] #### ABSGEL, CBC, A1C, ABOGEL, ANEU, CMP, ADIFF, GFR #### [address] [address] HbA1c (Bld) [Mass fraction] 5.2 % Normal 4.3-6.4 [facility] ([place]) Comment on above: Performed By: #### H CV1, VARIS, RPR, RUBIS, HBSAG #### [place] [address] #### ABSGEL, CBC, A1C, ABOGEL, ANEU, CMP, ADIFF, GFR #### [address] [address] ABO/Rh (Gel)on 02-14-2024 ABO/Rh Interp Positive Invalid Interpretation Code [facility] ([place]) Comment on above: Performed By: #### H CV1, VARIS, RPR, RUBIS, HBSAG ####[place] [address]#### ABSGEL, CBC, A1C, ABOGEL, ANEU, CMP, ADIFF, GFR ####[address] [address] ABS (Gel)on 02-14-2024 ABSC Interp (Gel) Negative Normal [facility] ([place]) Comment on above: Performed By: #### H CV1, VARIS, RPR, RUBIS, HBSAG ####[place] [address]#### ABSGEL, CBC, A1C, ABOGEL, ANEU, CMP, ADIFF, GFR ####[address] [address] CBCon 02-14-2024 Erythrocyte distribution width (RBC) [Ratio] 13.2 % Normal 11.5-14.5 [facility] ([place]) Comment on above: Performed By: #### H CV1, VARIS, RPR, RUBIS, HBSAG #### [place] [address] #### ABSGEL, CBC, A1C, ABOGEL, ANEU, CMP, ADIFF, GFR #### [address] [address] Hematocrit (Bld) [Volume fraction] 36.5 % Low 37.0-47.0 [facility] ([place]) Comment on above: Performed By: #### H CV1, VARIS, RPR, RUBIS, HBSAG #### [place] [address] #### ABSGEL, CBC, A1C, ABOGEL, ANEU, CMP, ADIFF, GFR #### [address] [address] Hgb 12.2 G/dL Normal 12.0-16.0 [facility] ([place]) Comment on above: Performed By: #### H CV1, VARIS, RPR, RUBIS, HBSAG #### [place] [address] #### ABSGEL, CBC, A1C, ABOGEL, ANEU, CMP, ADIFF, GFR #### [address] [address] MCH (RBC) [Entitic mass] 30.4 pg Normal 27.0-31.2 [facility] ([place]) Comment on above: Performed By: #### H CV1, VARIS, RPR, RUBIS, HBSAG #### [place] [address] #### ABSGEL, CBC, A1C, ABOGEL, ANEU, CMP, ADIFF, GFR #### [address] [address] MCHC 33.5 G/dL Normal 33.0-37.0 [facility] ([place]) Comment on above: Performed By: #### H CV1, VARIS, RPR, RUBIS, HBSAG #### [place] [address] #### ABSGEL, CBC, A1C, ABOGEL, ANEU, CMP, ADIFF, GFR #### [address] [address] MCV (RBC) [Entitic vol] 90.7 fL Normal 80.0-94.0 [facility] ([place]) Comment on above: Performed By: #### H CV1, VARIS, RPR, RUBIS, HBSAG #### [place] [address] #### ABSGEL, CBC, A1C, ABOGEL, ANEU, CMP, ADIFF, GFR #### [address] [address] Platelet 201 10 3/mcL Normal 130-400 [facility] ([place]) Comment on above: Performed By: #### H CV1, VARIS, RPR, RUBIS, HBSAG #### [place] [address] #### ABSGEL, CBC, A1C, ABOGEL, ANEU, CMP, ADIFF, GFR #### [address] [address] Platelet mean volume (Bld) [Entitic vol] 9.4 fL Normal 7.4-10.4 [facility] ([place]) Comment on above: Performed By: #### H CV1, VARIS, RPR, RUBIS, HBSAG #### [place] [address] #### ABSGEL, CBC, A1C, ABOGEL, ANEU, CMP, ADIFF, GFR #### [address] [address] [address] RBC 4.02 10 6/mcL Low 4.20-5.40 [facility] ([place]) Comment on above: Performed By: #### H CV1, VARIS, RPR, RUBIS, HBSAG #### [place] [address] #### ABSGEL, CBC, A1C, ABOGEL, ANEU, CMP, ADIFF, GFR #### [address] [address] WBC 9.4 10 3/mcL Normal 4.6-10.8 [facility] ([place]) Comment on above: Performed By: #### H CV1, VARIS, RPR, RUBIS, HBSAG #### [place] [address] #### ABSGEL, CBC, A1C, ABOGEL, ANEU, CMP, ADIFF, GFR #### [address] [address] CMPon 02-14-2024 Albumin Level 2.9 G/dL Low 3.5-5.0 [facility] ([place]) Comment on above: Performed By: #### H CV1, VARIS, RPR, RUBIS, HBSAG #### [place] [address] #### ABSGEL, CBC, A1C, ABOGEL, ANEU, CMP, ADIFF, GFR #### [address] [address] Albumin/Globulin [Mass ratio] 0.8 {ratio} Low 1.1-2.5 [facility] ([place]) Comment on above: Performed By: #### H CV1, VARIS, RPR, RUBIS, HBSAG #### [place] [address] #### ABSGEL, CBC, A1C, ABOGEL, ANEU, CMP, ADIFF, GFR #### [address] [address] ALP [Catalytic activity/Vol] 97 U/L Normal 40-135 [facility] ([place]) Comment on above: Performed By: #### H CV1, VARIS, RPR, RUBIS, HBSAG #### [place] [address] #### ABSGEL, CBC, A1C, ABOGEL, ANEU, CMP, ADIFF, GFR #### [address] [address] ALT [Catalytic activity/Vol] 40 U/L Normal 14-59 [facility] ([place]) Comment on above: Performed By: #### H CV1, VARIS, RPR, RUBIS, HBSAG #### [place] [address] #### ABSGEL, CBC, A1C, ABOGEL, ANEU, CMP, ADIFF, GFR #### [address] [address] AST [Catalytic activity/Vol] 17 U/L Normal 10-40 [facility] ([place]) Comment on above: Performed By: #### H CV1, VARIS, RPR, RUBIS, HBSAG #### [place] [address] #### ABSGEL, CBC, A1C, ABOGEL, ANEU, CMP, ADIFF, GFR #### [address] [address] Bili Total 0.2 mg/dL Normal 0.2-1.0 [facility] ([place]) Comment on above: Result Comment: Use of this assay is not recommended for patients undergoing treatment with eltrombopag due to the potential for falsely elevated results. Performed By: #### H CV1, VARIS, RPR, RUBIS, HBSAG #### [place] [address] #### ABSGEL, CBC, A1C, ABOGEL, ANEU, CMP, ADIFF, GFR #### [address] [address] BUN/Creatinine Ratio 8 ratio Normal 7-27 [facility] ([place]) Comment on above: Performed By: #### H CV1, VARIS, RPR, RUBIS, HBSAG #### [place] [address] #### ABSGEL, CBC, A1C, ABOGEL, ANEU, CMP, ADIFF, GFR #### [address] [address] Calcium [Mass/Vol] 8.8 mg/dL Normal 8.4-10.2 [facility] ([place]) Comment on above: Performed By: #### H CV1, VARIS, RPR, RUBIS, HBSAG #### [place] [address] #### ABSGEL, CBC, A1C, ABOGEL, ANEU, CMP, ADIFF, GFR #### [address] [address] Chloride [Moles/Vol] 105 mmol/L Normal 98-107 [facility] ([place]) Comment on above: Performed By: #### H CV1, VARIS, RPR, RUBIS, HBSAG #### [place] [address] #### ABSGEL, CBC, A1C, ABOGEL, ANEU, CMP, ADIFF, GFR #### [address] [address] CO2 [Moles/Vol] 26 mmol/L Normal 22-29 [facility] ([place]) Comment on above: Performed By: #### H CV1, VARIS, RPR, RUBIS, HBSAG #### [place] [address] #### ABSGEL, CBC, A1C, ABOGEL, ANEU, CMP, ADIFF, GFR #### [address] [address] Creatinine [Mass/Vol] 0.60 mg/dL Normal 0.55-1.02 [facility] ([place]) Comment on above: Performed By: #### H CV1, VARIS, RPR, RUBIS, HBSAG #### [place] [address] #### ABSGEL, CBC, A1C, ABOGEL, ANEU, CMP, ADIFF, GFR #### [address] [address] Electrolyte Balance 9.0 mEq/L Normal 4.0-15.0 [facility] ([place]) Comment on above: Performed By: #### H CV1, VARIS, RPR, RUBIS, HBSAG #### [place] [address] #### ABSGEL, CBC, A1C, ABOGEL, ANEU, CMP, ADIFF, GFR #### [address] [address] Globulin 3.6 G/dL Normal [facility] ([place]) Comment on above: Performed By: #### H CV1, VARIS, RPR, RUBIS, HBSAG #### [place] [address] #### ABSGEL, CBC, A1C, ABOGEL, ANEU, CMP, ADIFF, GFR #### [address] [address] Glucose [Mass/Vol] 88 mg/dL Normal 70-105 [facility] ([place]) Comment on above: Performed By: #### H CV1, VARIS, RPR, RUBIS, HBSAG #### [place] [address] #### ABSGEL, CBC, A1C, ABOGEL, ANEU, CMP, ADIFF, GFR #### [address] [address] Potassium [Moles/Vol] 3.7 mmol/L Normal 3.5-5.1 [facility] ([place]) Comment on above: Performed By: #### H CV1, VARIS, RPR, RUBIS, HBSAG #### [address] [address] #### ABSGEL, CBC, A1C, ABOGEL, ANEU, CMP, ADIFF, GFR #### [address] [address] Sodium [Moles/Vol] 140 mmol/L Normal 136-145 [facility] ([place]) Comment on above: Performed By: #### H CV1, VARIS, RPR, RUBIS, HBSAG #### [place] [address] #### ABSGEL, CBC, A1C, ABOGEL, ANEU, CMP, ADIFF, GFR #### [address] [address] Total Protein 6.5 G/dL Normal 6.4-8.2 [facility] ([place]) Comment on above: Performed By: #### H CV1, VARIS, RPR, RUBIS, HBSAG #### [place] [address] #### ABSGEL, CBC, A1C, ABOGEL, ANEU, CMP, ADIFF, GFR #### [address] [address] Urea nitrogen [Mass/Vol] 5 mg/dL Low 7-18 [facility] ([place]) Comment on above: Performed By: #### H CV1, VARIS, RPR, RUBIS, HBSAG #### [place] [address] #### ABSGEL, CBC, A1C, ABOGEL, ANEU, CMP, ADIFF, GFR #### [address] [address] HBSAGon 02-14-2024 Hep B Surf Ag Non-Reactive Normal Non-Reactive [facility] ([place]) Comment on above: Performed By: #### H CV1, VARIS, RPR, RUBIS, HBSAG ####[address] [address]#### ABSGEL, CBC, A1C, ABOGEL, ANEU, CMP, ADIFF, GFR ####[facility] [address] [place], [place] [address] HCVon 02-14-2024 Hep C Ab Non-Reactive Normal Non-Reactive [facility] ([place]) Comment on above: Performed By: #### H CV1, VARIS, RPR, RUBIS, HBSAG ####[place] [address]#### ABSGEL, CBC, A1C, ABOGEL, ANEU, CMP, ADIFF, GFR ####[address] [place], [place] [address] Hep C Ab Int Normal [facility] ([place]) Comment on above: Result Comment: Nonr eactive: [...] #### H CV1, VARIS, RPR, RUBIS, HBSAG ####[place] [address]#### ABSGEL, CBC, A1C, ABOGEL, ANEU, CMP, ADIFF, GFR ####[address] [place], [place] [address] HIVRPon 02-14-2024 HIV p24 Antigen Non-Reactive Normal Non-Reactive [facility] ([place]) Comment on above: Result Comment: Dete ction of p24 may be inhibited by biotin in the sample, causing false negative results in acute infection. Therefore do not test samples from patients who are taking biotin. Performed By: #### H IVRP #### Katie [address] [address] HIV P24 Int Non-Reactive Invalid Interpretation Code [facility] ([place]) Comment on above: Performed By: #### H IVRP #### Katie [address] [address] Rapid HIV 1/2 Antibody Non-Reactive Normal Non-Reactive [facility] ([place]) Comment on above: Performed By: #### H IVRP #### Katie [address] [address] RHIV 1/2 Ab Int Non-Reactive Invalid Interpretation Code [facility] ([place]) Comment on above: Performed By: #### H IVRP #### [facility] [address] [place], [place] [address] DRUGUon 02-06-2024 Amphetamine (u) Negative Normal Negative [facility] ([place]) Comment on above: Performed By: #### Emre RUGU #### [place] [address] Barbiturate (u) Negative Normal Negative [facility] ([place]) Comment on above: Performed By: #### Emre RUGU #### [place] [id number] Benzodiazepine (u) Negative Normal Negative [facility] ([place]) Comment on above: Performed By: #### Emre RUGU #### [place] [id number] Cannabinoid (u) Negative Normal Negative [facility] ([place]) Comment on above: Performed By: #### Emre RUGU #### [place] [address] Cocaine Ql (U) Negative Normal Negative [facility] ([place]) Comment on above: Performed By: #### Emre RUGU #### [place] [id number] Fentanyl (u) Negative Normal Negative [facility] ([place]) Comment on above: Result Comment: Test ing has been performed FOR MEDICAL PURPOSES ONLY. Performed By: #### Emre RUGU #### [place] [id number] Methadone Ql (U) Negative Normal Negative [facility] ([place]) Comment on above: Performed By: #### Emre RUGU #### [place] [id number] Opiate (u) Negative Normal Negative [facility] ([place]) Comment on above: Performed By: #### Emre RUGU #### [place] [id number] Oxycodone (u) Negative Normal Negative [facility] ([place]) Comment on above: Result Comment: Test ing has been performed FOR MEDICAL PURPOSES ONLY. Performed By: #### D RUGU #### [address] [address] PCP (u) Negative Normal Negative [facility] ([place]) Comment on above: Performed By: #### D RUGU #### [facility] [address] [place] [address] Propoxyphene (u) Negative Normal Negative [facility] ([place]) Comment on above: Performed By: #### D RUGU #### [address] [address] U pH Drug Scrn 7.0 Normal 5.0-8.0 [facility] ([place]) Comment on above: Performed By: #### D RUGU #### [place] [id number] Urine Drugs screened: See Below Normal [facility] ([place]) Comment on above: Result Comment: This drug [...] ONLY. Performed By: #### D RUGU #### [place] [address] LABORATORYOrdered By: Marisa So on 02-06-2024 Amphetamines [...] Mixed growth consistent with normal urogenital sien[place]. [facility] Work Phone: CNCOon 01-11-2024 [facility] Letter Text Normal [facility] Bacteria Ur Culton Bacteria identified Cx Nom (U) ORGANISM ID: 1 <10,000 CFU/ml Normal urogenital siena Normal [facility] Comment on above: Performed By: #### 6 30-4 #### [facility] CLIA [id number] [address] [place] [address] [place] C. trachomatis+N. gonorrhoea e DNA SKYLER+probe Ql (Unsp spec)on 11-29-2023 C. trachomatis rRNA SKYLER+probe Ql (Unsp spec) Negative Normal Negative for Chlamydia trachomatis by amplificaton [facility] Comment on above: Order Comment: Speci men Type: SWABOrdering Facility: [facility] Address: [address] [place] [address] Performed By: #### 3 6902-5 ####[facility] [id number] [place] [address] [place] N. gonorrhoeae rRNA SKYLER+probe Ql (Unsp spec) Negative Normal Negative for Neisseria gonorrhoeae by amplification [facility] Comment on above: Order Comment: Speci men Type: SWABOrdering Facility: [facility] Address: [address] [place] [address] Performed By: #### 3 6902-5 ####[facility] [id number] [place] [address] [place] PAP TESTon 11-29-2023 ADEQUACY Satisfactory for interpretation. Normal [facility] Comment on above: Order Comment: Speci men Type: FLUID SPECIMEN Ordering Facility: [facility] Address: [address] [place] [address] Performed By: #### L [id number] #### [facility] CLIA [id number] [address] [place] [address] [place] [facility] CLIA [id number] [address] [place] [address] [place] CASE REPORT Normal [facility] Comment on above: Order Comment: Speci men Type: FLUID SPECIMEN Ordering Facility: [facility] Address: [address] [place] [address] Result Comment: Gyne cologic Cytology Report Case: [id number] Authorizing Provider: Ivania Esquivel APRN.FLEET COORDINATOR Collected: 11/29/2023 09:16 AM Ordering Location: OB/Gynecology Received: 11/29/2023 12:29 PM First Screen: Gersey, Nalini, CT, ASCP Specimen: Pap Test, ThinPrep, Cervix Performed By: #### L [id number] #### [facility] CLIA [id number] [address] [place] [address] [place] [facility] CLIA [id number] [address] [place] [address] [place] CLINICAL HISTORY, CYTOLOGY, JAVA FLEX DEVELOPER Routine Exam Normal [facility] Comment on above: Order Comment: Speci men Type: FLUID SPECIMEN Ordering Facility: [facility] Address: [address] [place] [address] Performed By: #### L [id number] #### [facility] CLIA [id number] [address] [place] [address] [place] [facility] CLIA [id number] [address] [place] [address] [place] CYTOLOGY PAP OTHER INT Fungal organisms morphologically consistent with Luisa species. Normal [facility] Comment on above: Order Comment: Speci men Type: FLUID SPECIMEN Ordering Facility: [facility] Address: [address] [place] [address] Performed By: #### L [id number] #### [facility] CLIA [id number] [address] [place] [address] [place] [facility] CLIA [id number] [address] [place] [address] [place] FINAL PERFORMING LAB Normal [facility] Comment on above: Order Comment: Speci men Type: FLUID SPECIMEN Ordering Facility: [facility] Address: [address] [place] [address] Result Comment: Tech nical component, clinical consultant screening performed at [facility], [address] [facility], [place] [id number] CLIA# [id number] Diagnostic interpretation performed at [facility], [address] [facility], [place] [id number] CLIA# [id number] Director Of Therapy Services: Raven Gresham M.D. Performed By: #### L [id number] #### [facility] CLIA [id number] [address] [place] [address] [place] [facility] CLIA [id number] [address] [place] [address] [place] HPV REFLEX HPV if Atypical Normal [facility] Comment on above: Order Comment: Speci men Type: FLUID SPECIMEN Ordering Facility: [facility] Address: [address] [place] [address] Performed By: #### L [id number] #### [facility] CLIA [id number] [address] [place] [address] [place] [facility] CLIA [id number] [address] [place] [address] [place] INTERPRETATION, CYTOLOGY, JAVA FLEX DEVELOPER Normal [facility] Comment on above: Order Comment: Speci men Type: FLUID SPECIMEN Ordering Facility: [facility] Address: [address] [place] [address] Result Comment: Nega tive for intraepithelial lesion or malignancy. Performed By: #### L [id number] #### [facility] CLIA [id number] [address] [place] [address] [place] [facility] CLIA [id number] [address] [place] [address] [place] LMP 09/28/2023 Normal [facility] Comment on above: Order Comment: Speci men Type: FLUID SPECIMEN Ordering Facility: [facility] Address: [address] [place] [address] Performed By: #### L [id number] #### [facility] CLIA [id number] [address] [place] [address] STATES [facility] CLIA [id number] [address] [place] [address] STATES [facility] PAP DISCLAIMER COMMENT The Pap Smear is a screening test for cervical cancer. False negative results occur with all screening tests, emphasizing the need for rescreening at recommended intervals, and clinical correlation. Normal [facility] Comment on above: Order Comment: Speci men Type: FLUID SPECIMEN Ordering Facility: [facility] Address: [address] [place] [address] Performed By: #### L [id number] #### [facility] CLIA [id number] [address] [place] [address] STATES [facility] CLIA [id number] [address] [place] [address] [place] PAP WINDOW SHADE CLOTH SEWER COMMENT This specimen has been analyzed by the ThinPrep Imaging System, an automated imaging and review system, which assists the laboratory in evaluating cells on ThinPrep Pap tests. Following automated imaging, selected malhotra from every slide are reviewed by a clinical consultant. Normal [facility] Comment on above: Order Comment: Speci men Type: FLUID SPECIMEN Ordering Facility: [facility] Address: [address] [place] [address] Performed By: #### L [id number] #### [facility] [place] [id number] [address] [place] [address] STATES [facility] CLIA [id number] [address] [place] [address] [place] POC HEDIS REVIEW NURSE ULTRASOUNDon 11-29-19 Indication Confirmation of intrauterine . Confirmation of cardiac activity Impression 1. Single, live, intrauterine . 2. An intrauterine gestational sac with a yolk sac and pole are present. 3. [place] rump length measurement is consistent with the [...] Read By: Ivania Esquivel CNP MATERNAL MEDICINE [facility] Radiology Study observation (narrative) [facility] Dora 11-22-2023 DANIS Telephone (OBGYWM) MITALI ANN ([id number]) 4 F Date Time Provider Department 11/22/23 [...] Status:Closed by ENRIQUETA HOANG on 11/29/23 Normal [facility] Progress Noteon 11-29-2021 [employer]rop Duster Authentication Interface Message Text Maternal Medicine Consult [...] not been well determined, but the 2020 [facility] Consult Series, Diagnosis and Management of Growth [...] No Thalasse (more content not included)... [facility] BB COMMENTon 07-13-2021 BB COMMENT Normal [facility] Comment on above: Result Comment: [...] time for crossmatching. Reviewed by Saniya Garay MLS([facility])SBB on July 13, 2021. ABIJassi 07-11-2021 ABIEmre UNABLE TO DETERMINE ANTIBODY Normal [facility] Comment on above: Order Comment: Campu s: M Is This Patient Going To Surgery? N Result Comment: 07/02 0914: ABID previously reported as: ANTI-E ABSCRon 07-11-2021 ABSCR Negative [facility] Comment on above: Order Comment: Campu s: M Is This Patient Going To Surgery? N ANTIGEN TYPINGon 07-11-2021 ANTIGEN TYPING Negative [facility] Comment on above: Order Comment: Campu s: M Is This Patient Going To Surgery? N BMPon 07-10-2021 Anion gap [Moles/Vol] 7 mmol/L Normal 5-16 [facility] Comment on above: Order Comment: Campu s: M Performed By: #### L 500.95030, L500.02264 #### [facility] [address] [place] [address] Calcium [Mass/Vol] 10.3 mg/dL Normal 8.5-10.5 [facility] Comment on above: Order Comment: Campu s: M Result Comment: NOTE NEW NORMAL RANGE DUE TO REAGENT CHANGE Performed By: #### L 500.33070, L500.18931 #### [facility] [place] [address] Chloride [Moles/Vol] 103 mmol/L Normal 98-107 [facility] Comment on above: Order Comment: Campu s: M Performed By: #### L 500.82285, L500.09884 #### [facility] [address] [place] [address] CO2 [Moles/Vol] 27.0 mmol/L Normal 21-32 [facility] Comment on above: Order Comment: Campu s: M Performed By: #### L 500.67017, L5.56884 #### [facility] [address] [place] [address] Creatinine [Mass/Vol] 0.52 mg/dL Normal 0.510-0.950 [facility] Comment on above: Order Comment: Nathanielu s: M Result Comment: Aviva ents receiving either N-Acetylcysteine (NAC) or Metamizole prior to venipuncture, may have falsely depressed results. Performed By: #### L 500.41238, L5.54353 #### [facility] [address] [place] [address] Glucose [Mass/Vol] 89 mg/dL Normal 70-100 [facility] Comment on above: Order Comment: Nathanielu s: M Result Comment: 70-1 00- Normal Fasting; 100-125 Impaired Fasting; greater than 126 on more than one result- Diabetes. ADA guidelines. Results may be falsely elevated after the administration of Sulfapyridine. Results may be falsely depressed after the administration of Sulfasalazine. Performed By: #### L 500.80187, L5.05327 #### [facility] [address] [place] [address] Potassium [Moles/Vol] 3.7 mmol/L Normal 3.5-5.1 [facility] Comment on above: Order Comment: Nathanielu s: M Result Comment: Slig ht Hemolysis, Result may be affected. Performed By: #### L 500.73982, L500.84617 #### [facility] [address] [place] [address] Sodium [Moles/Vol] 137 mmol/L Normal 136-145 [facility] Comment on above: Order Comment: Campu s: M Performed By: #### L 500.09618, L500.41195 #### [facility] [address] [place] [address] Urea nitrogen [Mass/Vol] 7 mg/dL Normal 7-26 [facility] Comment on above: Order Comment: Campu s: M Performed By: #### L 500.11316, L500.64530 #### [facility] [address] [place] [address] Urea nitrogen/Creatinine [Mass ratio] 13 mg/mg Low 15-24 [facility] Comment on above: Order Comment: Campu s: M Performed By: #### L 500.68891, L500.28716 #### [facility] [address] [place] [address] CBC W/DIFFon 07-10-2021 BASO ABS 0.00 K/CU MM Normal 0-0.2 [facility] Comment on above: Order Comment: Campu s: M Performed By: #### L 200.15357 #### [facility] [address] [place] [address] Basophils/100 WBC (Bld) 0.5 % Normal 0-2 [facility] Comment on above: Order Comment: Campu s: M Performed By: #### L 200.35274 #### [facility] [address] [place] [address] EOS ABS 0.10 K/CU MM Normal 0-0.5 [facility] Comment on above: Order Comment: Campu s: M Performed By: #### L 200.57736 #### [facility] [address] [place] [address] Eosinophils/100 WBC (Bld) 1.3 % Normal 0-5 [facility] Comment on above: Order Comment: Campu s: M Performed By: #### L 200.15210 #### [facility] [address] [place] [address] Erythrocyte distribution width (RBC) [Ratio] 13.2 % Normal 11-14.5 [facility] Comment on above: Order Comment: Campu s: M Performed By: #### L 200.12391 #### [facility] [address] [place] [address] Hematocrit (Bld) [Volume fraction] 42.6 % Normal 35.0-47.0 [facility] Comment on above: Order Comment: Campu s: M Performed By: #### L 200.91347 #### [facility] [address] [place] [address] Hemoglobin (Bld) [Mass/Vol] 13.6 g/dL Normal 11.5-15.5 [facility] Comment on above: Order Comment: Campu s: M Performed By: #### L 200.23725 #### [facility] [address] [place] [address] IMMATR GRAN ABS 0.00 K/CU MM Normal Less than 2 [facility] Comment on above: Order Comment: Campu s: M Performed By: #### L 200.56651 #### [facility] [address] [place] [address] IMMATURE GRAN % 0.2 % Normal Less than 2 [facility] Comment on above: Order Comment: Campu s: M Performed By: #### L 200.81102 #### [facility] [address] [place] [address] LYMPH ABS 2.40 K/CU MM Normal 0.9-4.4 [facility] Comment on above: Order Comment: Campu s: M Performed By: #### L 200.73530 #### [facility] [address] [place] [address] Lymphocytes/100 WBC (Bld) 29.3 % Normal 20-40 [facility] Comment on above: Order Comment: Campu s: M Performed By: #### L 200.26111 #### [facility] [address] [place] [address] MCHC (RBC) [Mass/Vol] 31.9 g/dL Low 32.0-36.0 [facility] Comment on above: Order Comment: Campu s: M Performed By: #### L 200.76370 #### [facility] [address] [place] [address] MCV (RBC) [Entitic vol] 92.4 fL Normal 80.0-99.0 [facility] Comment on above: Order Comment: Campu s: M Performed By: #### L 200.69330 #### [facility] [address] [place] [address] MONO ABS 0.70 K/CU MM Normal 0.1-1.1 [facility] Comment on above: Order Comment: Campu s: M Performed By: #### L 200.74649 #### [facility] [address] [place] [id number] Monocytes/100 WBC (Bld) 7.9 % Normal 2-10 [facility] Comment on above: Order Comment: Campu s: M Performed By: #### L [id number] #### [facility] [address] [place] [address] NEUTROPHIL ABS 5.00 K/CU MM Normal 2.0-8.3 [facility] Comment on above: Order Comment: Campu s: M Performed By: #### L [id number] #### [facility] [address] [place] [address] Neutrophils/100 WBC (Bld) 60.8 % Normal 45-75 [facility] Comment on above: Order Comment: Campu s: M Performed By: #### L [id number] #### [facility] [address] [place] [address] Nucleated RBC/100 WBC (Bld) [Ratio] 0.0 % Normal Less than 1 [facility] Comment on above: Order Comment: Campu s: M Performed By: #### L [id number] #### [facility] [address] [place], [place] [id number] Platelet mean volume (Bld) [Entitic vol] 11.1 fL Normal 9.4-12.4 [facility] Comment on above: Order Comment: Campu s: M Performed By: #### L [id number] #### [facility] [address] [place] [address] PLT 269 K/CU MM Normal 150-450 [facility] Comment on above: Order Comment: Campu s: M Performed By: #### L [id number] #### [facility] [address] [place] [address] RBC 4.61 M/CU MM Normal 3.90-5.30 [facility] Comment on above: Order Comment: Campu s: M Performed By: #### L [id number] #### [facility] [address] [place] [address] WBC 8.3 K/CUMM Normal 4.5-11.0 [facility] Comment on above: Order Comment: Campu s: M Performed By: #### L [id number] #### [facility] [address] [place] [address] Deuce 07-10-2021 EMERGENCY PHYSICIAN REPORT This is a preliminary report only, as the practitioner review and authentication has not occurred. Normal [facility] ER PHYSICIAN ASSESSMENT RECORDS : FlexChartData Event Time: 07/10/2021 01:00 Status: Signed [facility] Mitali Ann [[id number]] Attending Physician 2002 Chart (V2b) Chart created at 07/10/2021 00:56 by Madhav Dominguez Chart closed at 07/10/2021 02:58 Entry in Emergency Department at 07/09/2021 22:14 Patient Name: Mitali Ann Record Number: [id number] Date: 07/10/2021 00:56 Entered Department at: 07/09/2021 [...] 8 weeks . She denies any associated [facility] PATIENT NAME: MITALI ANN [address] [facility] MEDICAL REC #: [id number] [place] [address] EMERGENCY DEPARTMENT REPORT EMERGENCY DEPARTMENT PHYSICIAN vaginal [...] 07/09/2021, 11:49 pm 92.4 / 13.6 / [facility] PATIENT NAME: MITALI ANN [address] [facility] [address] [place] MEDICAL REC #: [id number] [place] [address] EMERGENCY DEPARTMENT REPORT EMERGENCY DEPARTMENT PHYSICIAN 8.3 [...] information as of 07/09/2021, 11:18 pm HCGQ: 945343.6 Miu/Ml Imaging Study Obtained: TRANSVAGINAL US [facility] PATIENT NAME: MITALI ANN [address] [facility] [address] [place] MEDICAL REC #: [id number] [place] [address] EMERGENCY DEPARTMENT REPORT EMERGENCY DEPARTMENT PHYSICIAN Imaging Study Obtained: AGE 1ST TRIMESTER Imaging Study Obtained: AGE 1st TRIMESTER, Status:Signed Report Available EXAMINATION: FIRST TRIMESTER TRANSABDOMINAL PELVIC ULTRASOUND CLINICAL HISTORY: Lower abdominal pain. TECHNIQUE: Sonogra (more content not included)... Normal [facility] AGE 1st TRIMESTERon AGE 1st [...] sac: Present. - Embryo: Single present. - [place] rump length: 1.85 cm, corresponding gestational age [...] MD Signed By: TEA PALMER MD Normal [facility] [place] GFR ESTon 07-10-2021 IF AMER Greater than 60 Normal [facility] Comment on above: Order Comment: Campu s: M Performed By: #### L 500.34347, L500.12085 #### [facility] [address] [place], [place] [address] IF non-AFR AMER Greater than 60 Normal [facility] Comment on above: Order Comment: Campu s: M Performed By: #### L 500.98576, L500.78238 #### [facility] [address] [place], [place] [address] HCGQon 07-10-2021 HCGQ 204794.6 MIU/ML Normal less than 3 [facility] Comment on above: Order Comment: Campu s: M Result Comment: TRANG CHAN COMMENTS Less than 5 mIU/ML NEGATIVE FOR 5-25 mIU/ML BORDERLINE; RETEST IN 48 HOURS, IF INDICATED Greater than 25 mIU/ML POSITIVE FOR WEEKS POST LMP RANGE IN mIU/ML* 3-4 9-130 4-5 75-2600 5-6 [phone] 6-7 [id number] 7-12 [id number] 12-16 [id number] 16-29 [phone] 29-41 [phone] *These ranges are from published literature and may not be appropriate for all cases. When HCG levels are above 4000 mIU/ML, distinction between normal and abnormal is poor. The rate of change (doubling time) may be helpful. (Reference: NCC ) Performed By: #### L 550.92025 #### [facility] [address] [place] [address] PATIENT RETYPEon 07-10-2021 RETYPE INTERP Positive Normal [facility] Comment on above: Order Comment: Campu s: M Is This Patient Going To Surgery? N TSon 07-10-2021 ABO and Rh group Nom (Bld) Blood group A Rh(D) positive Normal [facility] Comment on above: Order Comment: Campu s: M Is This Patient Going To Surgery? N UA COMPLETEon 07-10-2021 Color (U) Straw Normal [facility] Comment on above: Order Comment: Campu s: M Performed By: #### L [id number] #### [facility] [address] [place] [address] Glucose (U) [Mass/Vol] Negative Normal NORMAL [facility] Comment on above: Order Comment: Campu s: M Performed By: #### L 600.93221 #### [facility] [place] [id number] UA APPEARANCE Clear Normal CLEAR [facility] Comment on above: Order Comment: Campu s: M Performed By: #### L 600.14964 #### [facility] [address] [place] [address] UA BILIRUBIN Negative Normal NEGATIVE [facility] Comment on above: Order Comment: Campu s: M Performed By: #### L 600.85102 #### [facility] [address] [place] [address] UA BLOOD Negative Normal NEGATIVE [facility] Comment on above: Order Comment: Campu s: M Performed By: #### L 600.43557 #### [facility] [address] [place] [address] UA KETONE Negative Normal NEGATIVE [facility] Comment on above: Order Comment: Campu s: M Performed By: #### L 600.56222 #### [facility] [address] [place] [address] UA LK ESTERASE Negative Normal NEGATIVE [facility] Comment on above: Order Comment: Campu s: M Performed By: #### L 600.48207 #### [facility] [place] [id number] UA NITRITE Negative Normal NEGATIVE [facility] Comment on above: Order Comment: Campu s: M Performed By: #### L 600.26149 #### [facility] [address] [place], [place] [address] UA PH 8.0 Normal 5-6 [facility] Comment on above: Order Comment: Campu s: M Performed By: #### L [id number] #### [facility] [address] [place] [address] UA PROTEIN Negative Normal NEGATIVE [facility] Comment on above: Order Comment: Campu s: M Performed By: #### L 600.30255 #### [facility] [address] [place] [address] UA SPEC GRAV 1.004 Normal 1.005-1.030 [facility] Comment on above: Order Comment: Campu s: M Performed By: #### L [id number] #### [facility] [address] [place], [place] [address] UA UROBILINOGEN Negative Normal NORMAL [facility] Comment on above: Order Comment: Campu s: M Performed By: #### L [id number] #### [facility] [address] [place] [address] Vital Signs Date Time Vital Sign Value Performing Clinician Facility 04-23-2024 14:35-0400 Diastolic Blood Pressure Non-Invasive 70 mm[Hg] PACO MANCILLA MD [facility] 04-23-2024 14:35-0400 Heart rate 94 /min PACO MANCILLA MD [facility] 04-23-2024 14:35-0400 Systolic Blood Pressure Non-Invasive 101 mm[Hg] PACO MANCILLA MD [facility] 04-23-2024 14:15-0400 Diastolic Blood Pressure Non-Invasive 57 mm[Hg] PACO MANCILLA MD [facility] 04-23-2024 14:15-0400 Heart rate 96 /min PACO MANCILLA MD [facility] 04-23-2024 14:15-0400 Systolic Blood Pressure Non-Invasive 110 mm[Hg] PACO MANCILLA MD [facility] 04-23-2024 14:01-0400 Body temperature 98.06 [degF] PACO MANCILLA MD [facility] 04-23-2024 14:01-0400 Diastolic Blood Pressure Non-Invasive 70 mm[Hg] PACO MANCILLA MD [facility] 04-23-2024 14:01-0400 Heart rate 97 /min PACO MANCILLA MD [facility] 04-23-2024 14:01-0400 Reason For Taking VItal Signs PACO MANCILLA MD [facility] 04-23-2024 14:01-0400 Respiratory rate 18 /min PACO MANCILLA MD [facility] 04-23-2024 14:01-0400 Systolic Blood Pressure Non-Invasive 120 mm[Hg] PACO MANCILLA MD [facility] 04-20-2024 13:28-0400 Body mass index (BMI) [Ratio] 32.14 kg/m2 Riri Eaton APRN.CNP Work Phone: [facility] 04-20-2024 13:28-0400 Body temperature 98.2 [degF] Riri Eaton MANAGER IN TRAINING.FLEET COORDINATOR Work Phone: [facility] 04-20-2024 13:28-0400 Body weight 87.6 kg Riri Eaton MANAGER IN TRAINING.FLEET COORDINATOR Work Phone: [facility] 04-20-2024 13:28-0400 Diastolic blood pressure 71 mm[Hg] Riri Eaton MANAGER IN TRAINING.FLEET COORDINATOR Work Phone: [facility] 04-20-2024 13:28-0400 Heart rate 92 /min Riri Eaton MANAGER IN TRAINING.FLEET COORDINATOR Work Phone: [facility] 04-20-2024 13:28-0400 Respiratory rate 18 /min Riri Eaton MANAGER IN TRAINING.FLEET COORDINATOR Work Phone: [facility] 04-20-2024 13:28-0400 SaO2% (BldA) [Mass fraction] 99 % Riri Eaton MANAGER IN TRAINING.FLEET COORDINATOR Work Phone: [facility] 04-20-2024 13:28-0400 Systolic blood pressure 111 mm[Hg] Riri Eaton MANAGER IN TRAINING.FLEET COORDINATOR Work Phone: [facility] 04-07-2024 11:10-0400 Body temperature 99.14 [degF] PACO MANCILLA MD [facility] 04-07-2024 11:10-0400 Diastolic Blood Pressure Non-Invasive 52 mm[Hg] PACO MANCILLA MD [facility] 04-07-2024 11:10-0400 Heart rate 85 /min PACO MANCILLA MD [facility] 04-07-2024 11:10-0400 Reason For Taking VItal Signs PACO MANCILLA MD [facility] 04-07-2024 11:10-0400 Respiratory rate 16 /min PACO MANCILLA MD [facility] 04-07-2024 11:10-0400 Systolic Blood Pressure Non-Invasive 96 mm[Hg] PACO MANCILLA MD [facility] 04-07-2024 09:30-0400 Diastolic Blood Pressure Non-Invasive 43 mm[Hg] PACO MACNILLA MD [facility] 04-07-2024 09:30-0400 Heart rate 100 /min PACO MANCILLA MD [facility] 04-07-2024 09:30-0400 Reason For Taking VItal Signs PACO MANCILLA MD [facility] 04-07-2024 09:30-0400 Respiratory rate 16 /min PACO MANCILLA MD [facility] 04-07-2024 09:30-0400 Systolic Blood Pressure Non-Invasive 106 mm[Hg] PACO MANCILLA MD [facility] 04-07-2024 08:54-0400 Body temperature 98.78 [degF] PACO MANCILLA MD [facility] 04-07-2024 08:54-0400 Diastolic Blood Pressure Non-Invasive 62 mm[Hg] PACO MANCILLA MD [facility] 04-07-2024 08:54-0400 Heart rate 104 /min PACO MANCILLA MD [facility] 04-07-2024 08:54-0400 Reason For Taking VItal Signs PACO MANCILLA MD [facility] 04-07-2024 08:54-0400 Respiratory rate 16 /min PACO MANCILLA MD [facility] 04-07-2024 08:54-0400 Systolic Blood Pressure Non-Invasive 135 mm[Hg] PACO MANCILLA MD [facility] 04-07-2024 08:47-0400 Body height 65 cm PACO MANICLLA MD [facility] 04-07-2024 08:47-0400 Body weight 86.6 kg PACO MANCILLA MD [facility] 04-07-2024 08:47-0400 Body weight 204.97 kg/m2 PACO MANCILLA MD [facility] 01-21-2024 10:27-0400 Body mass index (BMI) [Ratio] 28.96 kg/m2 David Edwards MD Work Phone: [facility] 01-21-2024 10:27-0400 Body weight 78.93 kg David Edwards MD Work Phone: [facility] 01-21-2024 10:27-0400 Diastolic blood pressure 62 mm[Hg] David Edwards MD Work Phone: [facility] 01-21-2024 10:27-0400 Systolic blood pressure 106 mm[Hg] David Edwards MD Work Phone: [facility] 11-29-2023 08:22-0400 Body height 165.1 cm Ivania Teressa MANAGER IN TRAINING.FLEET COORDINATOR Work Phone: [facility] 11-29-2023 08:22-0400 Body mass index (BMI) [Ratio] 28.06 kg/m2 Ivania Dillon MANAGER IN TRAINING.FLEET COORDINATOR Work Phone: [facility] 11-29-2023 08:22-0400 Body weight 76.48 kg Ivania Teressa MANAGER IN TRAINING.FLEET COORDINATOR Work Phone: [facility] 11-29-2023 08:22-0400 Diastolic blood pressure 58 mm[Hg] Ivania Dillon MANAGER IN TRAINING.FLEET COORDINATOR Work Phone: [facility] 11-29-2023 08:22-0400 Systolic blood pressure 90 mm[Hg] Ivania Dillon MANAGER IN TRAINING.FLEET COORDINATOR Work Phone: [facility] Encounters Encounter Date Encounter Type Care Provider Facility Start: 04-23-2024 End: 04-23-2024 ambulatory PACO MANCILLA MD Facility:[facility] Start: 04-23-2024 End: 04-23-2024 SAME DAY STAY PACO MANCILLA MD [facility] Start: 04-21-2024 End: 04-21-2024 ambulatory [facility] Facility:[facility] Start: 04-21-2024 End: 04-21-2024 Subsequent hospital visit by physician [facility] Devin Work Phone: Radiology Comment on above: Subacute cough [R05. 2] Start: 04-20-2024 End: 04-20-2024 ambulatory IVANIA TERESSA Facility:[facility] Start: 04-20-2024 End: 04-20-2024 Patient encounter procedure Riri Eaton MANAGER IN TRAINING.FLEET COORDINATOR Work Phone: [facility] Comment on above: Subacute cough (Prim marbella Dx); Sore throat; Sinus pressure Start: 04-15-2024 End: 04-19-2024 ambulatory NOT RECORDED PHYSICIAN Facility:[facility] Start: 04-15-2024 End: 04-19-2024 Outreach Lab JUAN RODRIGUEZ MD [facility] Start: 04-07-2024 End: 04-07-2024 ambulatory PACO MANCILLA MD Facility:[facility] Start: 04-07-2024 End: 04-07-2024 Evaluation and management of inpatient PACO MANCILLA MD [facility] Start: 03-04-2024 End: 03-04-2024 ambulatory NOT RECORDED PHYSICIAN Facility:[facility] Start: 03-04-2024 End: 03-04-2024 Patient encounter procedure JUAN RODRIGUEZ MD [facility] Start: 02-14-2024 End: 02-14-2024 ambulatory JUAN RODRIGUEZ Facility:[facility] Start: 02-06-2024 End: 02-10-2024 ambulatory JUAN RODRIGUEZ Facility:[facility] Start: 02-06-2024 End: 02-10-2024 Outreach Lab JUAN RODRIGEUZ MD [facility] Start: 01-21-2024 End: 01-21-2024 ambulatory [facility] Facility:[facility] Start: 01-21-2024 End: 01-21-2024 Patient encounter procedure David Edwards MD Work Phone: OB/Gynecology Comment on above: 16 weeks gestation o f (Primary Dx); Encounter for supervision of other normal in second trimester Start: 11-29-2023 End: 11-29-2023 ambulatory [facility] Facility:[facility] Start: 11-29-2023 End: 11-29-2023 Patient encounter procedure [facility] MANAGER IN TRAINING.FLEET COORDINATOR Work Phone: OB/Gynecology Comment on above: with uncer tain dates in first trimester (Primary Dx); Encounter for supervision of other normal in first trimester; 8 weeks gestation of Start: 11-22-2023 Telephone encounter [facility] MANAGER IN TRAINING.FLEET COORDINATOR Work Phone: OB/Gynecology Comment on above: 11/28 [...] exam ches t 2 views Riri Eaton MANAGER IN TRAINING.FLEET COORDINATOR Work Phone: Start: 04-20-2024 STREP A MOLECULAR (POC) [facility] Provider Start: 11-29-2023 Us uterus limited 1/> fetuses Ivania Esquivel [facility] Work Phone: Start: 07-10-2021 Antibody screen Comment on above: Order Comment: Gary s: M Is This Patient Going To Surgery? N Plan of Treatment Date Care Activity Detail Author Start: 04-15-2034 Urine microalbumin profile DTaP,Tdap,Td Vaccine (3 - Td or Tdap) [facility] Start: 02-05-2032 Urine microalbumin profile DTaP,Tdap,Td Vaccine (2 - Td or Tdap) [facility] Start: 11-28-2026 Screening for malign ant neoplasm of cervix Cervical Cancer Screening [facility] Start: 11-28-2024 GC (Gonorrhea) Screening () GC (Gonorrhea) Screening () [facility] Start: 11-28-2024 Screening for Chlamy elkin trachomatis Chlamydia Screening () [facility] Start: 05-09-2024 RSV Vaccine (1 - Ris k 1-dose series) RSV Vaccine (1 - Risk 1-dose series) [facility] Start: 03-02-2024 Covid-19 Vaccine ( season) Covid-19 Vaccine ( season) [facility] Start: 03-02-2024 Influenza vaccination [facility] Start: 02-18-2024 End: 02-18-2024 Patient encounter procedure OB/Gynecology Comment on above: Anatomy Anatomy/OB/AFP Start: 01-21-2024 End: 01-20-2025 OBSTETRIC ULTRASOUND WHI OBSTETRIC ULTRASOUND WHI Anc Imaging Routine 16 weeks gestation of Expected: 01/21/2024, Expires: 01/20/2025 [facility] Work Phone: Comment on above: Expected: 01/21/2024 , Expires: 01/20/2025 Start: 12-27-2023 End: 12-27-2023 Patient encounter procedure 12/27/2023 10:20 AM EDT Routine Office Visit OB/Gynecology [address] [place], [place] [id number] David Edwards MD [address] [place] [address] New ob LMP 09/28/2023 OB/Gynecology Comment on above: New ob LMP 09/28/2023 Start: 11-29-2023 End: 2024 CBC panel - Blood by Automated count COMPLETE BLOOD COUNT Lab Routine Encounter for supervision of other normal in first trimester 8 weeks gestation of Expected: 11/29/2023, Expires: 2024 [facility] Work Phone: Comment on above: Expected: 11/29/2023 , Expires: 2024 Start: 11-29-2023 End: 2024 Chromosome 21 trisomy [Presence] in Blood or Tissue by Cytogenetics [id number] PLUS Lab Routine Encounter for supervision of other normal in first trimester Expected: 11/29/2023, Expires: 2024 [facility] Comment on above: Expected: 11/29/2023 , Expires: 2024 Start: 11-29-2023 End: 2024 Hemoglobin A1c in Blood HEMOGLOBIN A1C Lab Routine Encounter for supervision of other normal in first trimester 8 weeks gestation of Expected: 11/29/2023, Expires: 2024 [facility] Comment on above: Expected: 11/29/2023 , Expires: 2024 Start: 11-29-2023 End: 2024 Hepatitis B virus surface Ag [Presence] in Serum HEPATITIS B SURFACE ANTIGEN Lab Routine Encounter for supervision of other normal in first trimester 8 weeks gestation of Expected: 11/29/2023, Expires: 2024 [facility] Comment on above: Expected: 11/29/2023 , Expires: 2024 Start: 11-29-2023 End: 2024 Hepatitis C virus Ab [Presence] in Serum HEPATITIS C ANTIBODY IA WITH CONFIRMATION Lab Routine Encounter for supervision of other normal in first trimester 8 weeks gestation of Expected: 11/29/2023, Expires: 2024 [facility] Comment on above: Expected: 11/29/2023 , Expires: 2024 Start: 11-29-2023 End: 2024 HIV 1+2 Ab [Presence] in Serum or Plasma by Immunoassay HIV 1/2 COMBO WITH REFLEX TO DIFFERENTIATION Lab Routine Encounter for supervision of other normal in first trimester 8 weeks gestation of Expected: 11/29/2023, Expires: 2024 [facility] Comment on above: Expected: 11/29/2023 , Expires: 2024 Start: 11-29-2023 End: 2024 RUBELLA IGG ANTIBODY RUBELLA IGG ANTIBODY Lab Routine Encounter for supervision of other normal in first trimester 8 weeks gestation of Expected: 11/29/2023, Expires: 2024 [facility] Comment on above: Expected: 11/29/2023 , Expires: 2024 Start: 11-29-2023 End: 2024 SYPHILIS TOTAL W/REFLEX SYPHILIS TOTAL W/REFLEX Lab Routine Encounter for supervision of other normal in first trimester 8 weeks gestation of Expected: 11/29/2023, Expires: 2024 [facility] Comment on above: Expected: 11/29/2023 , Expires: 2024 Start: 11-29-2023 End: 2024 TYPE + SCREEN TYPE + SCREEN Blood Bank Routine Encounter for supervision of other normal in first trimester 8 weeks gestation of Expected: 11/29/2023, Expires: 2024 [facility] Comment on above: Expected: 11/29/2023 , Expires: 2024 Start: 07-02-2023 Behavioral Health Screening Behavioral Health Screening [facility] Start: 03-02-2023 Covid-19 Vaccine () Covid-19 Vaccine () [facility] Start: 2023 Screening for malign ant neoplasm of cervix Pap Testing [facility] Start: 2021 Hepatitis B Vaccine (1 of 3 - 19+ 3-dose series) Hepatitis B Vaccine (1 of 3 - 19+ 3-dose series) [facility] Start: 02-29-2020 Anxiety Screening Anxiety Screening [facility] Start: 02-29-2020 Depression Screening Depression Scre ening [facility] Start: 02-29-2020 GC (Gonorrhea) Screening (18-24) GC (Gonorrhea) Screening (18-24) [facility] Start: 02-29-2020 Hepatitis C screening Hepatitis C Sc reening [facility] Start: 02-29-2020 HIV screening HIV Screening [facility] Start: 02-29-2020 Screening for Chlamy elkin trachomatis Chlamydia Screening (18-24) [facility] Start: 2018 Meningococcal B Vaccine: Consider Based On Risk (1 of 2 - Patient Seeks Protection) Meningococcal B Vaccine: Consider Based On Risk (1 of 2 - Patient Seeks Protection) [facility] Start: 2017 HPV Vaccine (1 - 3-d ose series) HPV Vaccine (1 - 3-dose series) [facility] Start: 02-29-2016 Peds To Adult Transition Annual Assessment Peds To Adult Transition Annual Assessment [facility] Start: 2014 Peds To Adult Transition Initial Discussion Peds To Adult Transition Initial Discussion [facility] ALERE STREP A TEST (AG) ALERE ST REP A TEST (AG) Lab Routine Sore throat Ordered: 04/20/2024 [facility] Work Phone: Comment on above: Ordered: 04/20/2024 Bacteria identified in Urine by Culture URINE CULTURE Microbiology Routine Encounter for supervision of other normal in first trimester 8 weeks gestation of 11/29/2023 9:16 AM T [facility] Chlamydia trachomatis+Neisseria gonorrhoeae DNA [Presence] in Unspecified specimen by SKYLER with probe detection GONORRHEA/CHLAMYDIA NAAT Lab Routine Encounter for supervision of other normal in first trimester 8 weeks gestation of 11/29/2023 9:16 AM T [facility] PAP TEST PAP TEST Lab Rou tejas Encounter for supervision of other normal in first trimester 8 weeks gestation of 11/29/2023 9:16 AM T [facility] XR Chest PA and Lateral XR CHEST 2V FRONTAL/LAT Radiology STAT Subacute cough Ordered: 04/20/2024 [facility] Comment on above: Ordered: 04/20/2024 Immunizations Immunization Date Immunization Notes Care Provider Jabier whitehead 04-15-2024 tetanus toxoid, redu latonia diphtheria toxoid, and acellular pertussis vaccine, adsorbed; Translations: [Boostrix (Tdap)] JUAN RODRIGUEZ MD [facility] Comment on above: Result Comment: [facility]# [id number] 02-04-2022 influenza, injectabl e, quadrivalent, preservative free David Edwards MD Work Phone: [facility] Work Phone: 02-04-2022 tetanus toxoid, redu latonia diphtheria toxoid, and acellular pertussis vaccine, adsorbed David Edwards MD Work Phone: [facility] 02-04-2022 influenza virus vaccine, unspecified formulation Ivania Teressa KEITH Work Phone: [facility] Payers Date Payer Category Payer Medicaid [facility] [id number] 2023-Present [phone] [place] [address] Medicaid [id number] 2023 Unknown [id number] 2002 Unknown [id number] 2002 Unknown [id number] 2002 Unknown [id number] 2002 Unknown [id number] 2002 Unknown [id number] 2002 Unknown [id number] 2002 Unknown [id number] Social History Date Type Detail Facility Tobacco smoking status NHIS Tobacco smoking consumption unknown [facility] Start: 2002 Sex Assigned At Not on file [facility] Start: 11-29-2023 End: 04-20-2024 History of Social function [facility] Start: 11-29-2023 End: 04-20-2024 Tobacco use panel [facility] National Score (1-100), lower number is lower risk 60 [facility] Start: 11-29-2023 Tobacco smoking status NHIS Never smoked tobacco [facility] Start: 11-29-2023 Tobacco use and exposure Smokeless tobacco non-user [facility] Start: 11-29-2023 End: 04-20-2024 Alcohol intake Lifetime non-drinker (finding) [facility] Start: 11-29-2023 Education 13 [facility] Start: 11-29-2023 Tobacco Comment Pt vapes but s topped at 5 weeks [facility] Start: 10-12-2023 [facility] Start: 02-06-2024 Tobacco smoking status Ex-smoker (finding) [facility] Sex Assigned At Female [facility] NEGATED: Highlighted rowStart: NINF History of tobacco use Passive smoker [facility] Functional Status Date Assessment Result Facility 04-07-2024 Functional Status Activity Noe tance Independent [facility] Mental Status Date Assessment Result Facility 04-07-2024 Mental Status Orientation Oriented x 4 [facility] Clinical Notes 11-22-2023 to 04-21-2024 Deo Vu, RT(R) - 04/21/2024 10:50 AM Riri [place] APRN.FLEET COORDINATOR - 04/20/2024 1:30 PM EDTLaboratoryPrenatal Quick Notes [...] PATIENT PRESENTS WITH AN IMPLANTABLE OR ATTACHED INSULATION INSPECTOR: No RADIOLOGY DEPARTMENT: General X-ray: Exam(s) Completed: Chest X-Ray PERIPHERAL IV DATA: Not applicable SIGNED BY: RT Nathaniel(Saúl) April 21, 2024 10:48 AM documented in this encounter [facility] 04-21-2024 Note HNO ID: [id number] Author: DEO VU RT(R) Service: Radiology Author [...] PATIENT PRESENTS WITH AN IMPLANTABLE OR ATTACHED INSULATION INSPECTOR: No RADIOLOGY DEPARTMENT: General X-ray: Exam(s) Completed: Chest X-Ray PERIPHERAL IV DATA: Not applicable SIGNED BY: KEERTHI Armstrong) April 21, 2024 10:48 AM [facility] 04-20-2024 Note HNO ID: [id number] Author: RIRI EATON APRN.FLEET COORDINATOR Service: ? Author Type: Nurse Practitioner Type: [...] atb tomorrow after xray resulted. Riri Eaton APRN.[facility] 04-20-2024 History of Presen t illness Narrative [...] atb tomorrow after xray resulted. Riri Eaton APRN.FLEET COORDINATOR documented in this encounter [facility] 04-17-2024 Note . MICRO - Microbiology [...] Locations *1: This test was performed at: [facility], [address] [place] [address], [facility] , [facility] 04-07-2024 Hospital Discharg e instructions Patient Education 04/07/2024 12:38:09 7 - Labor and Delivery Outpatient Instructions(CUSTOM) [facility] HOME-GOING INSTRUCTIONS _X_ [...] crackers, bananas, Jell-O, cooked carrots, applesauce. ___ [place] diet. Avoid caffeine, chocolate, alcohol, spiced/greasy foods. [...] the nearest Emergency Room for assistance. Form 991415 D: 06/09 Document Released: 06/18/2006 Document Revised: 06/06/2012 Document Reviewed: 06/18/2006 [employer] Patient Information 2012 [employer]. [facility] 04-07-2024 Note ORIGINAL EXAMINATION: RETROPERITONEAL ULTRASOUND OF [...] 04/07/2024 11:24:13 AM Ordering Provider: PACO MANCILLA [facility] 04-01-2024 Evaluation + Plan note Future Scheduled TestsGlucose 1 Hour Challenge 04/01/24Rapid Plasma Reagin Test 04/01/24Complete Blood Count 04/01/24 [facility] 03-06-2024 Note . MICRO - Microbiology PROCEDURE: [...] Locations *1: This test was performed at: [address], [address] , [facility] ([place]) 02-08-2024 Note . MICRO - Microbiology PROCEDURE: [...] Locations *1: This test was performed at: [facility], [address] [place] [address], [facility] , [facility] [place] 01-21-2024 Progress note Formatting of t his [...] NIPT anatomy US ordered. David Edwards M.D. [facility] 01-21-2024 Miscellaneous Notes RR- VB No. LOF No. CTXS No. Movement: present. Other c/o: intermittent BLACK, common for her during Medication list reviewed. Physical Exam See Flow Sheet Abd: soft, nontender, gravid A/P 16w3d Estimated Date of Delivery: 07/04/24 Labs: pn labs d/w her aneuplopidy screening, desire NIPT anatomy US ordered. David Edwards M.D. documented in this encounter [facility] 01-21-2024 Instructions Yissel Lofton MA - 01/21/2024 10:27 AM EDT SEQUENTIAL SCREENINGS The [facility] offers sequential screenings for women who [...] It will require an appointment with our missile technician. This is not an ultrasound performed [...] the above symptoms, contact our office at [phone] and ask to speak with a nurse. After hours, you can call doctors registry at [phone] OR call [facility] at [phone] and ask to have the doctor supervisor metal furniture fabrication paged. If you consider this an emergency, dial [phone] or go to your nearest emergency department. NEED HELP? Are you dealing with a violent or abusive relationship? Are you a victim of rape or sexual assult? Call [facility] ([place]) 24 hour Crisis Hotline: 370.365.9532 or 591-413-5325. MANUAL Your Guide to a Healthy manual is now on-line. Visit [email or web address] to download your free copy documented in this encounter [facility] 11-29-2023 Telephone encounter Note Patient here for NOB now. Enriqueta Hoang RN [facility] 11-29-2023 Miscellaneous Notes Patient here for [...] today or you can transfer her to [facility] documented in this encounter [facility] 11-29-2023 Instructions Luanne Healy LPN - 11/29/2023 8:16 AM EDT Please select the following link to access the [facility] Your Guide to a Healthy . [email or web address] documented in this encounter [facility] 11-29-2023 Note HNO ID: [id number] Author: IVANIA ESQUIVEL APRN.FLEET COORDINATOR Service: ? Author Type: Nurse Practitioner Type: [...] or cervical lesion (more content not included)... [facility] 11-29-2023 History of Presen t illness Narrative [...] Your guide to a health and the Senior Client Advisor. Reviewed midwifery and weatherseal technician services that are available. 2) Screening: Hemoglobin [...] weeks or sooner prn. *previous delivery with [place] [facility]- will get delivery record. Ivania Esquivel APRN.RAFIQ documented in this encounter [facility] 11-22-2023 Telephone encounter Note Left message for patient to return phone call to complete nurse intake questions for her upcoming appointment. Patient has an appointment with Ivania Esquivel for NOB appointment. She is new to clinic-please triage if she is transferring care or had previous deliveries elsewhere. I will be here most of today or you can transfer her to [facility] Evaluation + Plan note Future Appointments Appointment Date:02/14/2024 07:30:00 AM Scheduled Provider: Location:[facility] Appointment Type:US OB > 14 wks Appointment Date:03/04/2024 10:45:00 AM Scheduled Provider:JUAN RODRIGUEZ MD Location:[facility] Appointment Type: OV Future Scheduled TestsABO/Rh [...] Limited/Transvaginal 02/06/24US OB > 14 weeks 02/14/24 [facility] Evaluation + Plan note Future Appointments Appointment Date:04/01/2024 09:30:00 AM Scheduled Provider:MATILDE SEQUEIRA Location:[facility] Appointment Type: OV OB Routine Follow Up Diagnostic Tests PendingUrine Culture 03/04/24 [facility] Evaluation + Plan note Future Appointments Appointment Date:04/15/2024 10:30:00 AM Scheduled Provider:JUAN RODRIGUEZ MD Location:[facility] Appointment Type: OV OB Routine Follow Up Future Scheduled TestsGlucose 1 Hour Challenge 04/01/24Rapid Plasma Reagin Test 04/01/24Complete Blood Count 04/01/24 [facility] Evaluation + Plan note Future Appointments Appointment Date:04/29/2024 03:45:00 PM Scheduled Provider:JUAN RODRIGUEZ MD Location:[facility] Appointment Type: OV OB Routine Follow Up Future Scheduled TestsGlucose 1 Hour Challenge 04/01/24Rapid Plasma Reagin Test 04/01/24Complete Blood Count 04/01/24 [facility] Evaluation note Diagnosis with uncertain dates in first trimester- Primary Encounter for supervision of other normal in first trimester 8 weeks gestation of state, incidental [facility] Diagnosis 16 weeks gestation of - Primary state, incidental Encounter for supervision of other normal in second trimester [facility]* Diagnosis Subacute cough- Primary Cough Sore throat Acute pharyngitis Sinus pressure Other diseases of nasal cavity and sinuses documented in this encounter [facility] course Narrative No data available for this section [facility] Hospital Discharge instructions No data available for this section [facility] Progress note No data available for this section [facility] Reason for referral (narrative)* Diagnostic Procedure Only (Routine) - Pending Review Specialty Diagnoses / Procedures Referred By Abida chavez Referred To Contact [facility] Diagnoses 16 weeks gestation of Procedures OBSTETRIC ULTRASOUND WHI US PREG UTERUS AFTER 1ST TRIMEST GESTATION David Edwards MD [address] [place] [id number] [facility] [address] [place] [address] Referral ID Status Reason Start Date Expiration Date Visits Requested Visits Authorized [id number] Pending Review Auto-Generat ed Referral 01/21/2024 01/20/2025 1 1 [facility] Summary Purpose Family History No Family [...] or prosecute any alcohol or drug abuse patient.[facility] the event this information is protected by the Federal Confidentiality of Alcohol and Drug Abuse Patient Records regulations: The Federal rules restrict any use of the information to criminally investigate or prosecute any alcohol or drug abuse patient.[facility] the event this information is protected by the Federal Confidentiality of Alcohol and Drug Abuse Patient Records regulations: The Federal rules restrict any use of the information to criminally investigate or prosecute any alcohol or drug abuse patient.[facility] the event this information is protected by the Federal Confidentiality of Alcohol and Drug Abuse Patient Records regulations: The Federal rules restrict any use of the information to criminally investigate or prosecute any alcohol or drug abuse patient.[facility] the event this information is protected by the Federal Confidentiality of Alcohol and Drug Abuse Patient Records regulations: The Federal rules restrict any use of the information to criminally investigate or prosecute any alcohol or drug abuse patient.[facility] the event this information is protected by the Federal Confidentiality of Alcohol and Drug Abuse Patient Records regulations: The Federal rules restrict any use of the information to criminally investigate or prosecute any alcohol or drug abuse patient.[facility] INFORMATION SOURCE (unrecogn ized section and content) DATE CREATED AUTHOR 07/30/2021 [facility] Marsha Hodges DATE CREATED AUTHOR AUTHOR'S ORGANIZ ATION 12/01/2021 [facility] DATE CREATED AUTHOR AUTHOR'S ORGANIZ ATION 03/07/[address] [facility] [place] DATE CREATED AUTHOR AUTHOR'S ORGANIZ ATION 04/22/2024 [facility] DATE CREATED AUTHOR AUTHOR'S ORGANIZ ATION 04/26/2024 [facility] Reason for Visit (unrecogniz ed section and content) Reason Comments 11/28 NOB Intake Questions Reason Comments Initial OB Visit Specialty Diagnoses / Procedures Referred By Abida chavez Referred To Contact [facility] Diagnoses New OB LMP 09/28/2023 Procedures new ob lmp 09/28/23 [facility] [address] [place] [address] Referral ID Status Reason Start Date Expiration Date Visits Requested Visits Authorized [id number] Authorized Patient Cleared - Qualified 100% FAS 11/14/2023 02/12/2024 99 99 Reason Onset Date Comments Care 01/21/2024 Specialty Diagnoses / Procedures Referred By Abida t Referred To Contact [facility] Diagnoses New OB LMP 09/28/2023 Procedures new ob lmp 09/28/23 Self [facility] [address] [place] [address] Referral ID Status Reason Start Date Expiration Date Visits Requested Visits Authorized [id number] Authorized Patient Cleared - INN Insurance Found 11/14/2023 02/12/2024 99 99 Reason Comments Cough X2 weeks, R ear pain Patient Care team informatio n (unrecognized section and content) 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 [facility] edulio [facility]. provides no warranty or guarantee of the accuracy or completeness of information in this document.
== END | disposition home or self-care (01) ==
LOC: VL 12:46
PROVIDERS: PCP Family Medicine; Visit Provider Emergency Medicine
DX: M79.604 Pain in right leg (principal)
CPT/HCPCS: 93971

== ENCOUNTER → 2025-02-16 | Outpatient (CLI) | payer MEDICAID, SELFPAY ==
[2025-02-16 12:35] LABS: Hematocrit 43.2 % (37-47); Hemoglobin 13.8 g/dL (12.0-15.0); Mean Corp Hgb Conc 31.9 g/dL (32-36); Mean Corpuscular Volume 91.9 fL (81-99); Mean Platelet Vol. 11.4 fl (6.2-12.0); Platelet Count 255 K/mm3 (150-450); RBC Distribution Width CV 13.6 % (11.6-14.6); RBC Distribution Width SD 46.2 fl (35.1-43.9); Red Blood Count 4.70 M/mm3 (4.2-5.4); White Blood Count 5.7 K/mm3 (4.4-11.0)
[2025-02-16 13:12] LABS: AST(SGOT) 36 U/L (<=31); Alanine Aminotransfer ALT/SGPT 47 U/L (<=34); Albumin, Serum 4.5 g/dL (3.5-5.0); Alkaline Phosphatase 92 U/L (35-104); Anion Gap 11 (5-15); BUN 12 mg/dL (4-19); BUN/Creat Ratio 17.0 RATIO (10-20); Calcium,Total 9.5 mg/dL (7.6-11.0); Carbon Dioxide 24.7 mmol/L (21.0-32.0); Chloride 104 mmol/L (98-108); Globulin 2.9 g/dL (2.2-4.2); Glucose 105 mg/dL (70-99); Potassium 4.2 mmol/L (3.3-5.1); Vitamin D,25 Hydroxy 36.2 ng/mL (30-100)
== END | disposition home or self-care (01) ==
LOC: MFPLAB 10:28
PROVIDERS: PCP Family Medicine; Visit Provider Family Medicine
DX: E66.9 Obesity, unspecified (principal); Z13.1 Encounter for screening for diabetes mellitus; R53.83 Other fatigue
CPT/HCPCS: 36415; 80053; 82306; 83036; 84443; 85027

== ENCOUNTER 2025-03-23 13:33 | Outpatient (CLI) | payer MEDICAID, SELFPAY ==
[2025-03-28 05:07] LABS: Bluegrass, Kentucky <0.10 kU/L (Class 0); Cat Hair/Dander, Standard <0.10 kU/L (Class 0); Cedar, Mountain <0.10 kU/L (Class 0); Cockroach, American <0.10 kU/L (Class 0); Dog Epithelia <0.10 kU/L (Class 0); Egg, Whole <0.10 kU/L (Class 0); Elm, American White <0.10 kU/L (Class 0); Hazelnut Tree <0.10 kU/L (Class 0); Hickory, White <0.10 kU/L (Class 0); Mulberry, White <0.10 kU/L (Class 0); Mussels <0.10 kU/L (Class 0); Oak, White <0.10 kU/L (Class 0); Pigweed, Rough <0.10 kU/L (Class 0); Plantain, English <0.10 kU/L (Class 0); Ragweed, Short/Common <0.10 kU/L (Class 0); Sheep Sorrel(Dock) <0.10 kU/L (Class 0); Sycamore, American <0.10 kU/L (Class 0)
== END 2025-03-23 23:59 | disposition home or self-care (01) ==
LOC: MFPLAB 13:34
PROVIDERS: PCP Family Medicine; Visit Provider Family Medicine
DX: R21 Rash and other nonspecific skin eruption (principal)
CPT/HCPCS: 36415; 86003; 86005